=== PATIENT | male | born 1935 | race Caucasian/White ===

== ENCOUNTER → 2016-09-16 | Outpatient (CLI) | payer OTHER ==
[~2016-09-16] VITALS: Ht 175.3 cm; Wt 87.8 kg
[~2016-09-16] MED LIST: ADVIL LIQUI-GE200 MG PO; ALIGN4 MG PO; ASPIRIN325 PO; B-121000 MCG PO; B-12250 MCG PO; BANOPHEN50 MG PO; BENADRYL25 MG PO; BENTYL20 MG PO; BYETTA PEN 11 PENIN1 SUBQ; BYETTA PEN 11 PENINJ SC; BYSTOLIC20 MG PO; CARDURA XL4 MG PO; CLONAZEPAM PO; COLACE100 MG PO; COLCHICINE0.6 MG PO; COLESTID1 GM PO; CRESTOR; CRESTOR20 MG; CRESTOR5 MG PO; DIABETA 5MG TABL5 MG; DIABETA 5MG TABL5 MG PO; DIOVAN 80 MG TA80 M1 PO; DIOVAN HCT 3201 EAC1 PO; DIOVAN HCT 3201 EACH PO; DIOVAN HCT 80-1 EACH PO; DURAGESIC1 EAC2 TRANSDERM; EAC IJ; EFFIENT10 MG PO; ELIQUIS5 MG PO; ENDOCET 7.5-501 EACH PO; FENTANYL PA12 MCG/HR TD; FENTANYL PA12 MCG/HR TRANSDERM; FENTANYL PA25 MCG/HR TD; FLOMAX PO; FLOMAX0.4 MG PO; FUROSEMIDE 40 M40 MG PO; GLYCOLAX POWDER17 G1 PO; HYDROCODON-ACE1 EAC5 PO; HYDROCODONE-AP1 EAC6 PO; KLOR-CON 10 ER10 MEQ PO; LASIX 20 MG TAB20 MG PO; LASIX 40 MG TAB40 M1 PO; LIPITOR10 MG PO; MIRALAX255 GM PO; MOBIC15 MG PO; MS CONTIN15 MG PO; MUCINEX DM TABL1 TA1 PO; MYRBETRIQ25 MG PO; NEURONTIN 300300 M1 PO; NIACIN 500 MG500 M1 PO; NIASPAN 500 MG500 M1 PO; NIGHTTIME SLEEP50 MG PO; NITROQUICK0.4 MG; NITROQUICK0.4 MG SL; NITROQUICK0.4 MG SUBLING; NORCO 10-325 T1 EACH PO; OXECTA5 MG PO; OXYBUTYNIN 5 MG5 M1 PO; OXYBUTYNIN 5 MG5 M2 PO; OXYCODONE HCL5 M1 PO; OXYCODONE-APAP1 EAC6 PO; OXYCONTIN15 MG PO; OXYCONTIN30 MG PO; PERCOCET 10-321 EACH PO; PERCOCET 5-3251 EACH PO; RAPAFLO4 MG PO; REQUIP 1 MG TABL1 M1 PO; REQUIP PO; REQUIP0.5 MG PO; SAVAYSA30 MG PO; SENOKOT-S1 TA1 PO; SENOKOT-S1 TA2 PO; SLO-NIACIN250 MG PO; TAMSULOSIN HCL0.4 M1 PO; TOVIAZ4 M1 PO; VESICARE 5 MG TA5 MG PO; VESICARE10 M1 PO; VICTOZA0.6 MG/0.1 SQ; VITAMIN B12 PO; VITAMIN D2000 UNIT; VOLTAREN GEL 1100 G1 TOP; XANAX 0.25 MG0.25 MG PO; ZPAK PO
--- NOTE | ~2016-09-16 | HPC ---
[facility] [address] [place] [address] PAIN MANAGEMENT CONSULTATION Name: LUCRECIA MADRID Room #: REG PRIETO Shelton#: [id number] Admission: 09/16/16 Attend Phys: Rustam Roque DO Discharge: Date of : 37 Report #: [id number] THIS REPORT FOR: //name// CC: Errol Roque The patient is a very pleasant 80-year-old gentleman being treated for symptomatic lumbar radiculopathy status post decompressive laminectomy, has an intrathecal pump in place, presents to pain clinic today for intrathecal pump refill. He incidentally notes is having increasing pain in the right hip and leg. On further discussion, the patient notes that he had actually fallen striking that right hip about 6 weeks ago. Concerned for spiral fracture with decreased weightbearing ability. We did order an x-ray of the hip and pelvis. He also has a fairly classic radicular symptoms radiating down that leg. He is on a blood thinner, however (Eliquis). PHYSICAL EXAMINATION: Shows a 80-year-old gentleman, BMI is 28.2 kg/m2. Vital signs stable as noted in the EMR. Passive rotation of the right hip exacerbates pain. Becky test is negative. Strength is modestly diminished. Positive straight leg raise on that side as well. ASSESSMENT: Symptomatic lumbar radiculopathy status post decompressive laminectomy, intrathecal pump requiring refill, recent fall with trauma to the right hip with right hip pain. RECOMMENDATIONS: 1. X-ray of the pelvis and right hip. 2. Follow up next week off Eliquis for 2 days for consideration for either hip or lumbar epidural injection depending on clinical exam at that time and corroboration with the diagnostic findings (pelvis and hip X-Ray today). PROCEDURE: Intrathecal pump refill. PROCEDURE NOTE: After written informed consent was obtained, the patient was placed in supine position. Skin overlying the pump was cleansed with ChloraPrep. Skin wheal with Xylocaine was raised. Using a Critique^It refill kit, the pump was accessed, aspirated residual contents, and refilled with hydromorphone 2 mg per mL, 40 mL was injected with easy aspiration of injectate throughout. The patient complained of no change in sensation, burning dysesthesia. The site was visualized, no swelling or erythema was noted. Needle was removed, the area was cleansed, Band-Aids applied. Pump was reprogrammed to deliver current flex rate starting at noon and running for the latter half of the day. Overall, daily infusate is unchanged . GIGI is 55 months. New refill date is 02/07/2017. I have asked the patient to follow up next [place] [address] PAIN MANAGEMENT CONSULTATION Name: LUCRECIA MADRID Room #: REG PRIETO Shelton#: [id number] Admission: 09/16/16 Attend Phys: Rustam Roque DO Discharge: Date of : 37 Report #: [id number] of Eliquis. We will ask him to bring in the PTM device and we will likely reprogram the pump to deliver a basal rate plus will enable use of the PTM. Discharged in good and stable condition. <ELECTRONICALLY SIGNED> By: Rustam Roque DO 09/19/16 0749 1504 2159 Rustam Roque DO /nt
[2016-09-16 12:59] VITALS: BP 129/58
== END ==
LOC: PAIN 09:26
DX: Z45.1 Encounter for adjustment and management of infusion pump (principal); M54.16 Radiculopathy, lumbar region; M96.1 Postlaminectomy syndrome, not elsewhere classified; I10 Essential (primary) hypertension; Z87.891 Personal history of nicotine dependence; F32.9 Major depressive disorder, single episode, unspecified

== ENCOUNTER → 2016-09-22 | Outpatient (CLI) | payer OTHER ==
[~2016-09-22] VITALS: Ht 172.7 cm; Wt 85.3 kg
[~2016-09-22] MED LIST changes: +BENTYL 20 MG TA20 M1 PO; +BIOTIN5000 MCG PO; +KETOCONAZOLE60 GM TP; +KLOR-CON 1010 MEQ PO; +MIRALAX17 GM PO; +PANTOPRAZOLE SO40 M1 PO; -VITAMIN D2000 UNIT; +VITAMIN D2000 UNIT PO
--- NOTE | ~2016-09-22 | HPC ---
[address] [address] PAIN MANAGEMENT CONSULTATION Name: LUCRECIA MADRID Ariela Room #: REG PRIETO Shelton#: [id number] Admission: 09/22/16 Attend Phys: Rustam Roque DO Discharge: Date of : 37 Report #: [id number] THIS REPORT FOR: //name// CC: Errol Roque HISTORY OF PRESENT ILLNESS: The patient is a 80-year-old gentleman well known to pain clinic, being treated for lumbar radiculopathy status post decompressive laminectomy, ongoing lumbar radicular pain, chronic pain syndrome requiring complex medication management and intrathecal pump management. He was seen in pain clinic on 09/16/2016 and we refilled his pump that time. He returns to pain clinic today with increasing ongoing pain. I ordered x-rays of the right hip and pelvis as pain had increased subsequent to a fall about 6 weeks ago. X-rays show no pathology in the pelvis or right hip. With ongoing pain, we elected to proceed with epidural injection under fluoroscopy today. He has been off of his Eliquis now for 4 days. After discussion today, we have also elected to reprogram the intrathecal pump. He currently has a flex program delivering about 2.7 mg a day with a slight increase from noon to midnight. Today, we have elected to simply initiate a continuous infusion at 2.5 mg of hydromorphone a day (about 5% decrease overall), but enable hydromorphone PA dose of 0.15 mg and enable him to have up to 5 of these in a day with a 2-hour lock out. Ultimately, this will enable a 30% increase overall if PA is utilized. Also I have taken the liberty of renewing his Percocet enabling up to 4 tablets a day. We reviewed the fact that opiate medications are being used to provide analgesia adequate to support activities of daily living, not attempting to achieve a specific pain score on the 0-10 Visual Analog Scale. The current opiate medications are providing sufficient analgesia to allow the patient to participate in activities of daily living. The patient is not exhibiting any aberrant behavior suggestive of drug diversion. The patient is not having any adverse reactions to medications. The patient is not suffering from daytime somnolence or mental acuity changes. The patient is managing opiate-induced constipation with appropriate [id number]-mso-ahycftn agents and dietary considerations. The patient was counseled on concern for caution with operating a motor vehicle while using opiate medications. A physical exam was performed and the patient's functional status was evaluated. All patients with back pain were advised against the bed rest greater than 4 days and were advised to return to normal activities. Pain score assessment was noted and the treatment plan was reviewed with the patient. All current medications, both prescribed and OTC were reviewed and reconciled on the electronic medical record. Tobacco screening was accomplished and smoking cessation was advised when indicated. BMI was noted and diet/exercise [address] [address] PAIN MANAGEMENT CONSULTATION Name: MERCYLUCRECIA Ariela Room #: REG PRIETO Shelton#: [id number] Admission: 09/22/16 Attend Phys: Rustam Roque DO Discharge: Date of : 37 Report #: [id number] modification was recommended for all patients following outside normal parameters. I reviewed with the patient today their responsibilities to safeguard prescription medications, reviewed their responsibility to utilize medications only as prescribed by the physician. They are to seek and receive pain medications only from 1 physician group ( [facility]). They are to use 1 pharmacy and keep the clinic informed if they change pharmacies. Their responsibilities include making followup visits in a timely fashion and to avoid abrupt discontinuation of medication usage. Their responsibilities further include bringing their medications (bottles from the pharmacy with residual pills) to the visit for possible confirmation of pill counts and the patient understands it is their responsibility to submit to random drug screens to ensure both that the medications prescribed are present, and that no other controlled substances are present. All prescriptions provided today were generated electronically. ASSESSMENT: 1. Symptomatic lumbar radiculopathy status post decompressive laminectomy, chronic pain syndrome requiring complex medication management, hip and pelvic pain, axial back pain, intrathecal pump management. 2. Acute exacerbation of lumbar radicular pain. PROCEDURE: Lumbar epidural injection under fluoroscopy. PROCEDURE NOTE: After both written and informed consent to include risk of spinal cord damage, increased pain, weakness and dural puncture, the patient was taken to the fluoroscopy suite, placed in the prone position. After sterile prep and drape, a skin wheal with lidocaine was raised. A 22-gauge epidural Tuohy needle was inserted in the midline at L5-S1 with good loss to resistance. Negative aspiration for cerebrospinal fluid or blood was noted. Then 1 mL of Omnipaque under biplanar fluoroscopy showed good spread within the epidural space. This was followed with 60 mg of triamcinolone plus 1 mL of 1.5% preservative-free Xylocaine, 0.5 mL Xylocaine was then injected to flush the needle; it was removed. The patient was monitored for an appropriate period of time and discharged in good and stable condition. <ELECTRONICALLY SIGNED> By: Rustam Roque DO 09/23/16 0837 1603 2249 Rustam Roque DO /nt
[2016-09-22 14:14] VITALS: BP 102/57
== END | disposition home or self-care (01) ==
LOC: PAIN 07:18
DX: M54.16 Radiculopathy, lumbar region (principal); G89.4 Chronic pain syndrome; M25.559 Pain in unspecified hip

== ENCOUNTER 2016-09-23 06:36 | Observation (INO) | payer OTHER ==
[~2016-09-23] VITALS: Ht 172.7 cm; Wt 83.1 kg
--- NOTE | ~2016-09-23 | D ---
[facility] [place] [address] [address] [place] [address] DISCHARGE SUMMARY Name: LUCRECIA MADRID Room #: 204-P [facility] Sharon Shelton#: [id number] Admission: 09/23/16 Attend Phys: George Banks MD Discharge: 09/24/16 Date of : 37 Report #: [id number] THIS REPORT FOR: //name// CC: Errol Banks DATE OF SERVICE: 09/24/2016 FINAL DIAGNOSES: 1. Bradycardia, status post pacemaker insertion. 2. Atrial fibrillation. 3. Heart block. 4. Coronary artery disease. 5. Hypertension. 6. Hypercholesterolemia. HOSPITAL COURSE: Please see the original H and P for full details. The patient presented electively for symptomatic bradycardia, undergoing a pacemaker insertion by Dr. Banks. He has remained hemodynamically stable overnight. The pacemaker was interrogated today. He remains hemodynamically stable and will be discharged home. He is instructed to resume his oral anticoagulant on Monday. FINAL DISPOSITION: Aspirin once a day, colchicine, Lasix 20 mg daily, Neurontin, Protonix 40 mg daily, potassium, tamsulosin, alprazolam. He is given instructions for followup with Dr. Banks. <ELECTRONICALLY SIGNED> By: Tristian Titus MD 09/24/16 2112 1030 [facility] Tristian Titus MD /kerrie
--- NOTE | ~2016-09-23 | P ---
[facility] [place] [address] [address] [place] [address] PROCEDURE REPORT Name: LUCRECIA MADRID Room #: 204-P [facility] M.R.#: [id number] Admission: 09/23/16 Attend Phys: George Banks MD Discharge: Date of : 37 Report #: [id number] THIS REPORT FOR: //name// CC: Errol Banks PROCEDURE: Pacemaker insertion. PREOPERATIVE DIAGNOSES: Atrial fibrillation and bradycardia. POSTOPERATIVE DIAGNOSES: Atrial fibrillation and bradycardia. The patient is a 80-year-old with history permanent AFib as well as symptomatic bradycardia, here for pacemaker implantation. ANESTHESIA: The patient underwent MAC anesthesia with no anesthesia related complications. DESCRIPTION OF PROCEDURE: The patient underwent informed consent. We discussed the details of the procedure including the risks, which include, but not limited to bleeding, infection, vascular damage, cardiac perforation, and pneumothorax. He understood these risks and was willing to proceed. As such, he was brought to the EP laboratory in a fasting and sedated state and prepped and draped in a sterile fashion, received IV antibiotics prior to initiation of the procedure and a venogram was performed showing patency of the left axillary vein. Next, I injected 20 mL of lidocaine below the level of left clavicle. Incision was made, pocket was created over the prepectoral fascia and access was obtained once the left axillary vein and a sheath was positioned using the modified Seldinger technique. Next, a lead was positioned in the right ventricular apex with adequate pacing and sensing thresholds and sutured to the prepectoral fascia. The pacemaker was connected and placed in the pocket and then the pocket was irrigated with vancomycin and then the pocket was closed in 3 layers using 2-0 for the deep layer, 3-0 for the mid layer and 4-0 for the subcuticular layer. Surgical glue was placed to the skin. The patient awoke neurologically and hemodynamically intact with no complications and no significant bleeding. The implanted pacemaker was a [employer] model # [id number], serial #[id number] with a RV lead that is a [employer] model #2088TC, 58 cm, serial #[id number]. The RV lead demonstrated a R-wave of 4.3 millivolts, pacing impedance of 460 ohms and a pacing threshold of 0.75 volts at 0.4 milliseconds. The device was programmed to the VVIR 70-130 mode. CONCLUSIONS: [facility] [address] [place] [address] PROCEDURE REPORT Name: LUCRECIA MADRID [id number] Admission: 09/23/16 Attend Phys: George Banks MD Discharge: Date of : 37 Report #: [id number] 1. Successful pacemaker implantation. 2. Satisfactory ventricular pacing and sensing thresholds. By: [id number] George Banks MD /nt
[~2016-09-23 06:36] MED LIST changes: -BENTYL 20 MG TA20 M1 PO; -BIOTIN5000 MCG PO; -KETOCONAZOLE60 GM TP; -KLOR-CON 1010 MEQ PO; -MIRALAX17 GM PO; -PANTOPRAZOLE SO40 M1 PO
[2016-09-23] MEDS ORDERED: PANTOPRAZOLE SO40 M1 PO (07:18)
[2016-09-23 07:19] VITALS: BP 144/60
[2016-09-23] MEDS ORDERED: DIOVAN 80 MG TA80 M1 PO (07:19)
[2016-09-23 07:20] LABS: ABSOLUTE NEUTROPHILS 4.7 thou/uL (1.4-8.2); BASOPHILS 0.3 % (0.0-2.0); HEMATOCRIT 31.1 % (42.0-52.0); HEMOGLOBIN 10.1 gm/dL (14.0-18.0); LYMPHOCYTES 14.5 % (24.0-44.0); MCH 29.2 pg (26.0-34.0); MCHC 32.4 g/dL (28.0-37.0); MCV 90.2 fL (80.0-100.0); MONOCYTES 4.3 % (1.0-8.0); PLATELET COUNT 189 thou/uL (150-400); POLYS 80.9 % (36.0-66.0); RBC 3.45 mil/uL (4.50-6.00); WBC 5.8 thou/uL (4.0-11.0)
[2016-09-23] MEDS ORDERED: BENTYL 20 MG TA20 M1 PO (07:20)
[2016-09-23] MEDS ORDERED: KLOR-CON 1010 MEQ PO (07:20)
[2016-09-23 07:21] LABS: MANUAL DIFF NO
[2016-09-23] MEDS ORDERED: MIRALAX17 GM PO (07:21)
[2016-09-23] MEDS ORDERED: BIOTIN5000 MCG PO (07:21)
[2016-09-23] MEDS ORDERED: KETOCONAZOLE60 GM TP (07:22)
[2016-09-23 07:36] LABS: APTT 28.2 Seconds (24.5-32.8); CALCIUM 9.3 mg/dL (8.5-10.1); CREATININE 1.5 mg/dL (0.7-1.3); PROTIME 10.6 Seconds (9.3-11.4)
[2016-09-23 07:40] LABS: ALBUMIN 3.8 g/dL (3.4-5.0); TOTAL BILIRUBIN 0.4 mg/dL (<0.1-1.0); TOTAL PROTEIN 7.9 g/dL (6.4-8.2)
[2016-09-23 11:36] VITALS: BP 133/74
[2016-09-23 15:54] VITALS: BP 129/66
[2016-09-23 19:49] VITALS: BP 116/61
[2016-09-24 04:35] VITALS: BP 130/72
[2016-09-24 08:15] VITALS: BP 127/70
[2016-09-24 10:36] VITALS: BP 127/70
[2016-09-24 11:25] VITALS: BP 127/70
== END 2016-09-24 11:50 | disposition home or self-care (01) ==
LOC: CATH 06:36 → 2N 11:29
PROVIDERS: Internal Medicine Cardiovascular Disease
DX: I49.5 Sick sinus syndrome (principal); I48.91 Unspecified atrial fibrillation; R00.1 Bradycardia, unspecified; I25.10 Atherosclerotic heart disease of native coronary artery without angina pectoris; I10 Essential (primary) hypertension; E78.5 Hyperlipidemia, unspecified; Z95.0 Presence of cardiac pacemaker
CPT/HCPCS: 62110; 70005

== ENCOUNTER → 2017-01-13 | Outpatient (CLI) | payer OTHER ==
[~2017-01-13] VITALS: Ht 175.3 cm; Wt 82.6 kg
[~2017-01-13] MED LIST changes: +ASPIRIN81 M2 PO; +BENTYL 20 MG TA20 M1 PO; +BIOTIN5000 MCG PO; +KETOCONAZOLE60 GM TP; +KLOR-CON 1010 MEQ PO; +MIRALAX17 GM PO; +PANTOPRAZOLE SO40 M1 PO
--- NOTE | ~2017-01-13 | HPC ---
[facility] [address] [place] [address] PAIN MANAGEMENT CONSULTATION Name: LUCRECIA MADRID Room #: REG PRIETO Shelton#: [id number] Admission: 01/13/17 Attend Phys: Rustam Roque DO Discharge: Date of : 37 Report #: [id number] THIS REPORT FOR: //name// CC: Errol Roque DATE OF SERVICE: 01/13/2017 The patient is a very pleasant 81-year-old gentleman who longer at the pain clinic being treated for lumbar radiculopathy status post decompressive laminectomy, chronic pain syndrome requiring intrathecal pump management, presents to pain clinic today for intrathecal pump refill. Discussion with the patient today about ongoing therapeutic concerns. He has fallen 6 times in the last 3 months. On questioning him, he notes his legs are not "giving out." He simply trips and falls over objects usually when he is not using his walker, typically when he is hurrying to go to the bathroom as he has significant urinary urgency. He had fallen fairly hard with some trauma to his head and Dr. Blackburn took him off of his blood thinners at that time. It has been greater than a year status post his last endovascular stent. He remains fairly ecchymotic in his arms compatible with someone on long-term blood thinners. He is alert and oriented, but becoming more and more disabled, has a markedly antalgic gait with significant forward leaning posture and some kyphoscoliosis. Rates his pain 8-9 on VAS. Ongoing pain in the right shoulder. He did see Dr. Juan Carlos Bartholomew, had steroid injection there about 3 weeks ago. He has a followup appointment next week for further evaluation. Again, unfortunately, I do not think the patient would be an excellent surgical candidate given his general debility, but he may unfortunately require some surgery on that right shoulder. May benefit from PRP injection (?). PHYSICAL EXAMINATION: Otherwise is relatively unchanged pleasant 81-year-old gentleman, BMI is 26.9 kilograms per meter squared. Blood pressure 142/71, pulse 70, respirations 18. Significantly decreased range of motion actually at both shoulders, right greater than left, abduction is about 45 degrees. Hand grasp is even diminished a little bit on the right side. He does use his walker to ambulate. Antalgic, ataxic gait, significant forward posture. Continues to use Percocet p.r.n. 10/325 one tablet 4 times a day, he does have prescriptions for the next 2 months. Today, the intrathecal pump was refilled by the nursing staff. This was done under my supervision. Refilled with hydromorphone 40 mg per mL. His new refill date is 05/07/2017. Infusion rate continues at 2.498 mg of hydromorphone a day. The PA is enabled and he utilizes it appropriately. Has had [address] successful [facility] [address] [place] [address] PAIN MANAGEMENT CONSULTATION Name: MERCYLUCRECIA Ariela Room #: REG PRIETO Shelton#: [id number] Admission: 01/13/17 Attend Phys: Rustam Roque DO Discharge: Date of : 37 Report #: [id number] activations since last interrogation. The patient was discharged in good and stable condition today. Follow up simply as needed, medication management. <ELECTRONICALLY SIGNED> By: Rustam Roque DO 01/19/17 0847 1252 1949 Rustam Roque DO /nt
[2017-01-13 11:43] VITALS: BP 142/71
== END | disposition home or self-care (01) ==
LOC: PAIN 01-12 07:40
DX: Z45.1 Encounter for adjustment and management of infusion pump (principal); M54.16 Radiculopathy, lumbar region; G89.4 Chronic pain syndrome; I10 Essential (primary) hypertension; Z98.890 Other specified postprocedural states; Z87.891 Personal history of nicotine dependence; Z88.8 Allergy status to other drugs, medicaments and biological substances; Z88.6 Allergy status to analgesic agent; Z79.82 Long term (current) use of aspirin; Z79.899 Other long term (current) drug therapy

== ENCOUNTER → 2017-02-06 | Outpatient (CLI) | payer OTHER | END | disposition home or self-care (01) | LOC: RAD 08:25 | DX: M75.101 Unspecified rotator cuff tear or rupture of right shoulder, not specified as traumatic (principal) ==

== ENCOUNTER 2017-02-11 02:00 | Emergency (ER) | payer OTHER ==
[~2017-02-11] VITALS: Ht 175.3 cm; Wt 83.9 kg
[2017-02-16] MEDS ORDERED: OXYCODONE-ACET1 EAC2 PO (14:15)
[2017-02-16] MEDS ORDERED: ALLOPURINOL 10100 M1 PO (14:16)
[2017-02-16] MEDS ORDERED: KLOR-CON 1010 MEQ PO (14:16)
[2017-02-16] MEDS ORDERED: ONDANSETRON HCL4 M2 PO (14:17)
[2017-02-16] MEDS ORDERED: CYMBALTA60 MG PO (14:18)
[2017-02-16] MEDS ORDERED: MYRBETRIQ25 MG PO (14:18)
[2017-02-16] MEDS ORDERED: COLCHICINE0.6 MG PO (14:20)
== END 2017-02-11 04:35 | disposition home or self-care (01) ==
LOC: ER 02:00
DX: M25.551 Pain in right hip (principal); I10 Essential (primary) hypertension; E11.9 Type 2 diabetes mellitus without complications; G47.30 Sleep apnea, unspecified; G25.81 Restless legs syndrome; F10.99 Alcohol use, unspecified with unspecified alcohol-induced disorder; Z90.89 Acquired absence of other organs; Z90.49 Acquired absence of other specified parts of digestive tract; Z88.8 Allergy status to other drugs, medicaments and biological substances; Z88.6 Allergy status to analgesic agent; Z91.010 Allergy to peanuts; Z91.018 Allergy to other foods; Z79.4 Long term (current) use of insulin

== ENCOUNTER → 2017-02-13 | Outpatient (CLI) | payer OTHER | LOC: CAT 14:32 | DX: M47.892 Other spondylosis, cervical region (principal) ==

== ENCOUNTER 2017-02-22 05:15 | Inpatient (IN) | payer OTHER ==
[2017-02-17 13:32] LABS: URINE BILIRUBIN NEGATIVE (Negative); URINE BLOOD TRACE (Negative); URINE COLOR YELLOW; URINE GLUCOSE-RANDOM* NEGATIVE (Negative); URINE KETONES NEGATIVE (Negative); URINE LEUKOCYTES-REFLEX NEGATIVE (Negative); URINE PROTEIN (DIPSTICK) TRACE (Negative)
[2017-02-17 13:34] LABS: HEMATOCRIT 28.5 % (42.0-52.0); HEMOGLOBIN 9.5 gm/dL (14.0-18.0); MCH 29.3 pg (26.0-34.0); MCHC 33.3 g/dL (28.0-37.0); MCV 88.2 fL (80.0-100.0); RBC 3.23 mil/uL (4.50-6.00); RDW 17.3 % (10.5-14.5); WBC 7.7 thou/uL (4.0-11.0)
[2017-02-17 13:44] LABS: CALCIUM 9.5 mg/dL (8.5-10.1); CREATININE 1.4 mg/dL (0.7-1.3); POTASSIUM 4.2 mmol/L (3.5-5.1)
[2017-02-17 13:48] LABS: PROTIME 10.6 Seconds (9.3-11.4)
[~2017-02-22] VITALS: Ht 175.3 cm; Wt 90.5 kg
[2017-02-22] VITALS (11 sets, daily range): BP systolic 105–138; BP diastolic 43–71
--- NOTE | ~2017-02-22 | O ---
[facility] [place] [address] [place] [address] OPERATIVE REPORT Name: LUCRECIA MADRID Room #: 401-I [facility] M.R.#: [id number] Admission: 02/22/17 Attend Phys: Juan Carlos Martin Discharge: Date of : 37 Report #: [id number] THIS REPORT FOR: //name// CC: Juan Carlos Shipley DATE OF SERVICE: 02/22/2017 PREOPERATIVE DIAGNOSES: Right shoulder pain, rotator cuff tear arthropathy and biceps tendinopathy. POSTOPERATIVE DIAGNOSES: Right shoulder pain, rotator cuff tear arthropathy and biceps tendinopathy. PROCEDURE PERFORMED: Right reverse total shoulder arthroplasty with open biceps tenodesis. SURGEON: Juan Carlos Bartholomew M.D. INSTRUMENT MAN: Ana Maria Canas PA-C. ANESTHESIA: General with preoperative interscalene block. FLUIDS: 500 mL crystalloid. ESTIMATED BLOOD LOSS: Approximately 100 mL. IMPLANTS UTILIZED: DePuy Delta Xtend reverse prosthesis, size 12 Hydroxyapatite coated stem with a size 2 epiphysis. A +6 humeral polyethylene cup and a 42 mm eccentric glenosphere. DESCRIPTION OF PROCEDURE: After proper identification of the patient and the operative site in the preoperative holding area, the operative site was signed by myself. Prophylactic antibiotics given. The patient elected to receive an interscalene block after reviewing the risks, benefits, alternatives and potential complications with anesthesia. After a satisfactory block, the patient was brought back to the operative suite and after induction of satisfactory general endotracheal anesthesia, the patient was carefully positioned on the beachchair table with head of the bed elevated approximately 40 degrees. Right shoulder was able to be fully extended and the shoulder was sterilely prepped and draped in the usual manner. Final skin draping was with Ioban. Anterior deltopectoral approach was planned. A CompleteSet limb positioning system was utilized for limb positioning. Qualified director of first impressions was utilized throughout the entire procedure to aid in patient limb positioning, visualization and retraction of the soft tissues, instrument passage closure and sling application. [address] [address] OPERATIVE REPORT Name: LUCRECIA MADRID Room #: 401-I [facility] M.R.#: [id number] Admission: 02/22/17 Attend Phys: Juan Carlos Martin Discharge: Date of : 37 Report #: [id number] Anterior deltopectoral approach was planned. Skin was incised sharply. Full thickness skin flaps were developed. Deltopectoral interval was identified, but there was no cephalic vein. This was then carefully opened with the subdeltoid adhesions and thickening in the bursa was noted. There was evidence of a large rotator cuff tear with majority of the subscapularis, otherwise being intact. Long head of the biceps tendon demonstrated significant tendinopathy. A tenodesis was performed to the undersurface of the pectoralis major tendon. The subscapularis was released off the lesser tuberosity. The patient had full thickness retracted tears of the supraspinatus and infraspinatus with the subscapularis and capsule carefully released after the anterior circumflex vessels were identified and ligated and at this point, an oscillating saw was used to flatten the most superior aspect of the humeral head. Hand reaming up to size 12 stem, which matched the preoperative templating was performed. The intramedullary guide was then carefully positioned and secured with half pins and an oscillating saw was used to perform a humeral head osteotomy in approximately 20 degrees retroversion. Humeral head was removed. Any remaining peripheral osteophytes were carefully removed. The rotator cuff anchor was noted in the greater tuberosity with some suture that was retained, which was removed and debrided. A protection plate was then applied to the humerus. This was then extended and abducted and a lamina punch operator was utilized to distract the joint. Anterior capsule was carefully divided bluntly from the subscapularis and released. Labrum was removed circumferentially. The axillary nerve was identified and protected throughout the entire procedure. A small portion of the biceps insertion was released with direct observation of this area. There was excellent glenoid exposure and the remaining soft tissue was carefully removed from around this. There was no significant osseous way, but degenerative findings were noted on both the humeral and the glenoid side. At this point, a guide pin was placed into the glenoid while placing this guide as inferior as possible with care to pay attention to its orientation and tilt. The glenoid face was reamed and them the Miguel Angel reamer was utilized after this and a rongeur was used following all this to remove any potential soft tissue impingement. There was excellent bony bed for preparation of the Metaglene and glenoid. Step drill was then utilized. This area was thoroughly irrigated with normal saline. This drill hole was contained. Metaglene was then carefully impacted into position and had an excellent fit and was rotationally stable. Next, the inferior and superior locking screws were drilled and then placed. These both had excellent purchase. The anterior and posterior screws within the Metaglene were then placed and these measured 18 mm. All screws had excellent purchase, were sequentially tightened. The locking screws superiorly any inferiorly were then tightened. At this point, the humerus was prepared with an acetabular reamer to accept the size 2 epiphysis. A 42 eccentric glenosphere was carefully reduced over the glenoid and after this was performed, the glenosphere was carefully reduced into the Metaglene, screw was reversed until it was noted over [facility] [address] [place] [address] OPERATIVE REPORT Name: LUCRECIA MADRID Room #: 401-I [facility] M.R.#: [id number] Admission: 02/22/17 Attend Phys: Juan Carlos Martin Discharge: Date of : 37 Report #: [id number] a guidewire to have seated in the appropriate manner. This was then tightened approximately 16 or 17 turns, impacted and tightened again. The glenosphere was fully seated. There is no evidence of impingement was oriented inferiorly. Humerus was then reduced. Trial implants were assembled and placed a +6 polyethylene provided the best soft tissue attention with no gapping of the joint with longitudinal distraction. The trial implants were removed. Drill holes were placed in the anterior cortex of the humerus where #2 FiberWire was utilized for subsequent repair of the subscapularis. The wound and humerus was thoroughly irrigated with antibiotic irrigant normal saline. Next, the implant was carefully impacted into position and it had excellent fit. A +6 polyethylene liner was impacted into position, the shoulder was reduced. It was stable throughout a full arc of motion. Subscapularis was repaired with two #2 FiberWires in a modified Donte-Stephen technique. The joint and wound was again thoroughly irrigated with normal saline. This was dried. One gram of vancomycin powder was placed into the wound, half of the deep, half of this superficial and the deltopectoral interval was closed with #1 Vicryl, 2-0 Vicryl, the subcutaneous tissues, final skin closure was with 3-0 Monocryl in a running subcuticular manner. Dermabond was applied. Sterile dressing was applied as well as a sling for 4 weeks. The patient will be awakened and was transferred to the Recovery Room in stable condition. <ELECTRONICALLY SIGNED> By: Juan Carlos Bartholomew MD 02/24/17 1410 1341 1513 Juan Carlos Bartholomew MD /nt
--- NOTE | ~2017-02-22 | EKG ---
[address] [address] ELECTROCARDIOGRAM REPORT Name: LUCRECIA MADRID Room #: 401-I ADM IN M.R.#: [id number] Admission: 02/22/17 Attend Phys: Juan Carlos Martin Discharge: Date of : 37 Report #: [id number] THIS REPORT FOR: //name// [facility] Test Date: 2017-02-24 Test Time: 14:17:01 Pat Name: LUCRECIA MADRID Department: Room: 401 I Gender: M Black Belt: ulises : 1935 Requested By: Broderick Nunez Order Number: [id number] MD: George Banks Measurements Intervals [place] Rate: 70 P: LA: QRS: -84 QRSD: 145 T: 71 QT: 428 QTc: 462 Interpretive Statements Accelerated junctional rhythm IVCD, consider atypical RBBB Anterolateral infarct, old Compared to ECG 02/16/2012 08:13:53 Accelerated junctional rhythm now present Myocardial infarct finding now present Sinus rhythm no longer present Inferior Q waves no longer present Q waves no longer present Electronically Signed On 02-24-2017 21:17:30 CDT by George Banks [email or web address] <ELECTRONICALLY SIGNED> By: George Banks MD 02/24/172116 16 16 George Banks MD /EPI
--- NOTE | ~2017-02-22 | HC ---
[facility] [place] [address] CONSULTATION Name: LUCRECIA MADRID Room #: 401-I ADM IN M.R.#: [id number] Admission: 02/22/17 Attend Phys: Juan Carlos Martin Discharge: Date of : 37 Report #: [id number] THIS REPORT FOR: //name// CC: Juan Carlos Norton Shipley DATE OF SERVICE: 02/24/2017 HISTORY OF PRESENT ILLNESS: The patient is a 81-year-old white male with history of right shoulder pain, was admitted to [facility] and underwent a right reverse total shoulder arthroplasty with open biceps tenodesis on 02/22/2017. He is progressing quite well, but then had some problems with hypoxia, respiratory failure, lethargy with lower O2. He was started on nasal prong O2 and he is currently on 3 liters. We are seeing him in rehabilitation medicine consultation. He is currently on 98% on 3 liters, hopefully he can be tapered. PAST MEDICAL HISTORY: Includes, laminectomy in 1959, coronary artery disease with stent 03/19 and 08/24, sleep apnea with CPAP, noninsulin dependent diabetes mellitus, hypertension, restless legs syndrome, ETOH abuse, carpal tunnel surgery, L3-L4 laminectomy 09/28/2016, permanent pacemaker [facility] for atrial fibrillation and bradycardia Dr. Banks 09/23/2016. MEDICATIONS: Please see the full medication listing. SOCIAL HISTORY: Lives with his and son. The works, but son apparently is disabled from prior Hodgkins and lives at home and cares for the patient. REVIEW OF SYSTEMS: Did not offer any current complaints of chest pain, shortness of breath or abdominal discomfort. Some shoulder pain as expected. No focal extremity pain complaints. FAMILY HISTORY: Noncontributory. ALLERGIES: GIBRAN INHIBITORS, FENTANYL APPARENTLY CAUSES RASHES WELL TORADOL. PHYSICAL EXAMINATION: GENERAL: He is a pleasant 81-year-old slender white male in no obvious distress. VITAL SIGNS: Temperature 98.7, pulse 70, respirations 20, blood pressure 98/41. Alert, oriented. HEENT: Appeared to be benign. NEUROLOGIC: Cranial nerves are grossly intact. Facies are symmetric. He has decreased range of that left shoulder with strength of left upper extremity, a [address] [address] CONSULTATION Name: LUCRECIA MADRID Room #: 401-I ADM IN M.R.#: [id number] Admission: 02/22/17 Attend Phys: Juan Carlos Martin Discharge: Date of : 37 Report #: [id number] grade 4-/5. Right upper extremity is in a shoulder immobilizer. He can wiggle with thumb and fingers. Lower extremities, no focal calf swelling. Functional range of motion with strength, grade 3+ to 4-/5. DTRs are trace to 1. He is min assist sit to stand. Gait was 3 feet min assist with a cane. He does have a right lean and he notes there is some difference with his leg lengths and notes that this has been a chronic condition. ASSESSMENT: A 81-year-old white male with the following problems: 1. Right reverse total shoulder arthroplasty 02/22/2017. 2. Postoperative hypoxia, is on nasal prong O2 currently. 3. Diabetes mellitus type 2. 4. Hypertension. 5. Elevated lipids. 6. History of prior pacemaker. 7. Prior lumbar laminectomy. PLAN: The patient was a premorbid front-wheeled walker, ambulator due to his decreased balance and frequent falls. Now that he has had the reverse total shoulder arthroplasty, he is relegated to utilizing a cane, a pyramid cane will be tried by physical therapy today. His gait is quite precarious at this point in time. He may not be able to return back to the home setting until his shoulder precautions are released, but it will depend upon how he progress in therapies. He does have an adult son that could assist. He does not meet criteria for acute inpatient rehabilitation 5 Anthon criteria but agree that a fpc facility stay would appear to be most appropriate for him as he further medically stabilizes. Discussion was held with case management. Thank you for asking us to assist in this patient's care. <ELECTRONICALLY SIGNED> By: Amilcar Renteria MD 02/28/17 1116 1511 0507 Amilcar Renteria MD /[facility]
[~2017-02-22 05:15] MED LIST changes: +ALLOPURINOL 10100 M1 PO; +CYMBALTA60 MG PO; +ONDANSETRON HCL4 M2 PO; +OXYCODONE-ACET1 EAC2 PO
[2017-02-23 03:00] VITALS: BP 111/45
[2017-02-23 06:30] LABS: HEMATOCRIT 24.9 % (42.0-52.0); HEMOGLOBIN 8.2 gm/dL (14.0-18.0)
[2017-02-23 06:33] LABS: POTASSIUM 4.2 mmol/L (3.5-5.1)
[2017-02-23 08:21] VITALS: BP 108/52
[2017-02-23 16:00] VITALS: BP 94/55
[2017-02-23 19:30] VITALS: BP 117/45
[2017-02-24 05:10] VITALS: BP 110/56
[2017-02-24 08:00] VITALS: BP 105/44
[2017-02-24 08:35] VITALS: BP 103/56
[2017-02-24 10:25] LABS: ABG SAMPLE TYPE ARTERIAL; BE(vivo) -0.6 mmol/L (-2 to +3); HCO3 25.4 mmol/L (22.0-26.0); LACTATE 1.33 mmol/L (0.5-2.0); O2(CT) 11.5 mL/dL (15.0-23.0); PCO2 48.4 mmHg (35.0-45.0); PO2 65.9 mmHg (80.0-100.0); pH 7.337 (7.360-7.450); sO2 91.7 % (92.0-98.0); tCO2 26.8 mmol/L (24.0-30.0)
[2017-02-24 10:26] LABS: STICK SITE L.BRACHIAL
[2017-02-24 12:37] VITALS: BP 98/41
[2017-02-24 16:00] VITALS: BP 108/39
[2017-02-24 19:36] VITALS: BP 111/56
[2017-02-25 04:27] VITALS: BP 109/38
[2017-02-25 06:59] VITALS: BP 117/42
[2017-02-25 10:40] LABS: ABSOLUTE NEUTROPHILS 6.5 thou/uL (1.4-8.2); BASOPHILS 0.7 % (0.0-2.0); EOSINOPHILS 3.5 % (0.0-3.0); HEMATOCRIT 23.4 % (42.0-52.0); HEMOGLOBIN 7.7 gm/dL (14.0-18.0); LYMPHOCYTES 14.6 % (24.0-44.0); MCHC 32.8 g/dL (28.0-37.0); MCV 91.4 fL (80.0-100.0); MONOCYTES 8.3 % (1.0-8.0); PLATELET COUNT 120 thou/uL (150-400); POLYS 72.9 % (36.0-66.0); RBC 2.56 mil/uL (4.50-6.00); RDW 17.7 % (10.5-14.5); WBC 8.9 thou/uL (4.0-11.0)
[2017-02-25 10:53] LABS: MANUAL DIFF NO
[2017-02-25 11:02] LABS: CALCIUM 8.7 mg/dL (8.5-10.1); CREATININE 1.5 mg/dL (0.7-1.3); POTASSIUM 4.7 mmol/L (3.5-5.1)
[2017-02-25 14:35] LABS: ABG SAMPLE TYPE ARTERIAL; BE(vivo) -2.3 mmol/L (-2 to +3); HCO3 23.6 mmol/L (22.0-26.0); LACTATE 1.45 mmol/L (0.5-2.0); O2(CT) 12.5 mL/dL (15.0-23.0); O2Hb 97.4 % (92.0-98.0); PCO2 45.9 mmHg (35.0-45.0); PO2 141.5 mmHg (80.0-100.0); STICK SITE L.RADIAL; pH 7.329 (7.360-7.450); sO2 98.6 % (92.0-98.0)
[2017-02-25 18:22] VITALS: BP 109/46
[2017-02-25 20:00] VITALS: BP 102/40
[2017-02-26 04:00] VITALS: BP 100/48
[2017-02-26 08:00] VITALS: BP 115/49
[2017-02-26 16:00] VITALS: BP 139/55
[2017-02-27 04:45] VITALS: BP 127/59
[2017-02-27 07:03] LABS: HEMATOCRIT 25.3 % (42.0-52.0); HEMOGLOBIN 8.4 gm/dL (14.0-18.0); MCH 29.9 pg (26.0-34.0); MCHC 33.3 g/dL (28.0-37.0); MCV 89.8 fL (80.0-100.0); RBC 2.81 mil/uL (4.50-6.00); RDW 17.6 % (10.5-14.5)
[2017-02-27 07:04] LABS: CALCIUM 9.1 mg/dL (8.5-10.1); CREATININE 1.1 mg/dL (0.7-1.3); POTASSIUM 4.4 mmol/L (3.5-5.1)
[2017-02-27 08:00] VITALS: BP 134/61
[2017-02-27 16:00] VITALS: BP 125/58
[2017-02-27 20:10] VITALS: BP 143/65
[2017-02-28 05:00] VITALS: BP 143/68
[2017-02-28 08:00] VITALS: BP 130/53
== END 2017-02-28 15:05 | DRG 483 ==
LOC: TBA 05:15 → 4N 05:15 → PRE 11:11 → 4N 14:58
PROVIDERS: Anesthesiology Pain Medicine; Hospitalist; Orthopaedic Surgery Sports Medicine; Physician Assistant Surgical
DX: M75.101 Unspecified rotator cuff tear or rupture of right shoulder, not specified as traumatic (principal); J96.91 Respiratory failure, unspecified with hypoxia; M75.21 Bicipital tendinitis, right shoulder; M12.811 Other specific arthropathies, not elsewhere classified, right shoulder; I25.10 Atherosclerotic heart disease of native coronary artery without angina pectoris; G25.81 Restless legs syndrome; I48.91 Unspecified atrial fibrillation; E78.5 Hyperlipidemia, unspecified; M10.9 Gout, unspecified; M19.011 Primary osteoarthritis, right shoulder; G47.30 Sleep apnea, unspecified; D64.9 Anemia, unspecified; N18.9 Chronic kidney disease, unspecified; I12.9 Hypertensive chronic kidney disease with stage 1 through stage 4 chronic kidney disease, or unspecified chronic kidney disease; E11.22 Type 2 diabetes mellitus with diabetic chronic kidney disease; Z79.4 Long term (current) use of insulin; Z95.0 Presence of cardiac pacemaker; Z95.5 Presence of coronary angioplasty implant and graft; Z79.899 Other long term (current) drug therapy; Z88.8 Allergy status to other drugs, medicaments and biological substances; Z91.018 Allergy to other foods; Z91.010 Allergy to peanuts; Z28.21 Immunization not carried out because of patient refusal
CPT/HCPCS: 10790; 50010; 50101; 50172; 50386; 50417; 50697; 50733; 50935; 51771; 52138; 53000; 53078; 53331; 54118; 55435; 56521; 56524; 56525; 56526; 56530; 57095; 62110; 62900; 64039; 70005

== ENCOUNTER → 2017-04-10 | Outpatient (CLI) | payer OTHER | LOC: HYPER 07:18 | DX: E11.622 Type 2 diabetes mellitus with other skin ulcer (principal); L98.491 Non-pressure chronic ulcer of skin of other sites limited to breakdown of skin; L89.150 Pressure ulcer of sacral region, unstageable; E11.618 Type 2 diabetes mellitus with other diabetic arthropathy; G89.29 Other chronic pain; Z95.0 Presence of cardiac pacemaker; E11.36 Type 2 diabetes mellitus with diabetic cataract; I25.10 Atherosclerotic heart disease of native coronary artery without angina pectoris; E78.5 Hyperlipidemia, unspecified; M19.90 Unspecified osteoarthritis, unspecified site; Z87.891 Personal history of nicotine dependence ==

== ENCOUNTER → 2017-04-17 | Outpatient (CLI) | payer OTHER ==
[~2017-04-17] VITALS: Ht 172.7 cm; Wt 82.1 kg
[~2017-04-17] MED LIST changes: +PERCOCET 10-321 EAC1 PO; +VOLTAREN GEL 1100 G2 TOP
--- NOTE | ~2017-04-17 | HPC ---
[facility] [address] [place] [address] PAIN MANAGEMENT CONSULTATION Name: MERCYLUCRECIA Titus Room #: REG PRIETO Shelton#: [id number] Admission: 04/17/17 Attend Phys: Rustam Roque DO Discharge: Date of : 37 Report #: [id number] THIS REPORT FOR: //name// CC: Errol Roque HISTORY OF PRESENT ILLNESS: The patient is a very pleasant 81-year-old gentleman, long known to pain clinic, being treated for symptomatic lumbar radiculopathy status post decompressive laminectomy, chronic pain syndrome requiring high risk complex medication management. The patient was actually last seen as an inpatient, he had had a right total shoulder arthroplasty on 02/22/2017. He was admitted to the hospital. He was having trouble postoperatively with untoward sedation. I decreased his intrathecal pump about 45% when I saw him as an inpatient. He returns to pain clinic today. He is actually doing remarkably well. I was personally watched him walk pushing his wheelchair. He has a markedly stooped posture and some scoliosis, but his lower extremity strength is preserving. He was pleased to show me that he could sit and rise from the exam room chairs without using his arms. Again, he is doing physical therapy for the right total shoulder, doing remarkably well overall. He does complain of some right flank and hip pain. Some diffuse tenderness that he notes is generally improved with topical Voltaren gel. I reviewed the patient's diagnostic studies in the hospital, his renal function is actually looking pretty good. EGFR is about 65, while this is low. It certainly is appropriate for him to use topical Voltaren gel for his right flank. We will continue little Percocet 10/325 up to 4 a day maximum. His intrathecal pump was interrogated today. He does have PTM which he can use 6 times a day. He only used it at 3 times a day presently. PHYSICAL EXAMINATION: Otherwise, is pretty unremarkable. Again, much more alert and oriented. Vital signs stable as noted on the EMR. Tenderness as noted above. We reviewed the fact that opiate medications are being used to provide analgesia adequate to support activities of daily living, not attempting to achieve a specific pain score on the 0-10 Visual Analog Scale. The current opiate medications are providing sufficient analgesia to allow the patient to participate in activities of daily living. The patient is not exhibiting any aberrant behavior suggestive of drug diversion. The patient is not having any adverse reactions to medications. The patient is not suffering from daytime somnolence or mental acuity changes. The patient is managing opiate-induced constipation with appropriate bnuo-ksj-znnuibv agents and dietary considerations. The patient was counseled on concern for caution with operating a motor vehicle while using opiate medications. A physical exam was performed and the patient's functional status was evaluated. [address] [address] PAIN MANAGEMENT CONSULTATION Name: MERCYLUCRECIA Titus Room #: REG PRIETO Shelton#: [id number] Admission: 04/17/17 Attend Phys: Rustam Roque DO Discharge: Date of : 37 Report #: [id number] All patients with back pain were advised against the bed rest greater than 4 days and were advised to return to normal activities. Pain score assessment was noted and the treatment plan was reviewed with the patient. All current medications, both prescribed and OTC were reviewed and reconciled on the electronic medical record. Tobacco screening was accomplished and smoking cessation was advised when indicated. BMI was noted and diet/exercise modification was recommended for all patients following outside normal parameters. I reviewed with the patient today their responsibilities to safeguard prescription medications, reviewed their responsibility to utilize medications only as prescribed by the physician. They are to seek and receive pain medications only from 1 physician group ( [facility]). They are to use 1 pharmacy and keep the clinic informed if they change pharmacies. Their responsibilities include making followup visits in a timely fashion and to avoid abrupt discontinuation of medication usage. Their responsibilities further include bringing their medications (bottles from the pharmacy with residual pills) to the visit for possible confirmation of pill counts and the patient understands it is their responsibility to submit to random drug screens to ensure both that the medications prescribed are present, and that no other controlled substances are present. All prescriptions provided today were generated electronically. ASSESSMENT: Axial back pain, lumbar radiculopathy, status post decompressive laminectomy, intrathecal pump requiring high risk complex medication management. RECOMMENDATIONS: Voltaren gel 1 inch morning and after lunch to the right flank, may use up to 4 times a day, Percocet 10/325 up to 4 a day, taken the liberty of writing for 2 months of current medication. We will keep intrathecal pump where it is. Encouraged the PTM use as needed. Thank you for allowing me to participate in the patient's care. We will have him follow up in 2 months for reevaluation. A new refill is I believe in July. <ELECTRONICALLY SIGNED> By: Rustam Roque DO 04/19/17 0834 1545 2114 Rustam Roque DO /nt
[2017-04-17 14:33] VITALS: BP 109/56
== END ==
LOC: PAIN 07:36
DX: M54.16 Radiculopathy, lumbar region (principal); Z98.890 Other specified postprocedural states; Z79.899 Other long term (current) drug therapy

== ENCOUNTER → 2017-09-01 | Outpatient (CLI) | payer OTHER ==
[~2017-09-01] VITALS: Ht 172.7 cm; Wt 84.1 kg
--- NOTE | ~2017-09-01 | HPC ---
[facility] [address] [place] [address] PAIN MANAGEMENT CONSULTATION Name: LUCRECIA MADRID Ariela Room #: REG PRIETO Shelton#: [id number] Admission: 09/01/17 Attend Phys: Rustam Roque DO Discharge: Date of : 37 Report #: [id number] THIS REPORT FOR: //name// CC: Errol Roque The patient is a pleasant 81-year-old gentleman long known to pain clinic, treated for osteoarthritis, shoulder, status post right shoulder arthroplasty 02/22/2017. Chronic axial back pain requiring complex medication management, history of lumbar decompressive laminectomy. Suffers from some ongoing kyphosis and somewhat acute myelopathy status post cervical decompression late last year. He is improving somewhat. Has an intrathecal pump in place, which helps with chronic pain concerns. He presents to pain clinic today for intrathecal pump refill. Notes he is doing well on current infusion at 0.8 mg morphine a day. Does have a PA enabled, which he uses occasionally, 0.125 mg, which he can use up to 6 times in a 24-hour period. Appears since our last interrogation, he has used PTM about 76 times. He also uses a p.r.n. oral agent, Percocet , limit 4 tablets a day. I did renew that prescription today, I will put a note in the chart to check a buccal drug swab. If he is simply using the hydromorphone pain pump and PTM, we may be able to wean off the oxycodone p.r.n. Again, he has been getting up to 4 tablets a day and there was some concern for a lost prescription in the past (?). PROCEDURE: Intrathecal pump refill. INDICATION: Intrathecal pump management for chronic pain status post . PROCEDURE NOTE: After informed consent was obtained, the patient placed in supine position. Skin overlying the pump was cleansed with ChloraPrep. Using a [employer] Questtronic refill kit, I accessed the pump and aspirated residual contents, expected was about 5.5 mL, I aspirated actually about 8 mL. Typically, these 40 mL Medtronic pumps tend to have a little higher volume than anticipated. We suspect there may be some hysteresis regarding the exact infusion rate. Nonetheless, pump was refilled with 40 mL of new injectate containing hydromorphone 10 mg per mL. Frequent aspiration showed easy return. Visual inspection showed no swelling or erythema. The patient experienced no pain during the refill. Needle was removed, area was cleansed, Band-Aid was applied. The pump was reprogrammed to deliver its basal rate with ITP enabled. Prescription generated for Percocet 10/325. Follow up in 1 month. Again, unbeknownst to the patient, we will check a buccal swab at next visit. <ELECTRONICALLY SIGNED> By: Rustam Roque DO 09/04/17 0943 0911 1225 Rustam Roque DO /nt
[2017-09-01 13:35] VITALS: BP 138/71
== END | disposition home or self-care (01) ==
LOC: PAIN 07-14 09:07
DX: Z45.1 Encounter for adjustment and management of infusion pump (principal); G89.29 Other chronic pain; M54.9 Dorsalgia, unspecified; Z98.890 Other specified postprocedural states; Z79.891 Long term (current) use of opiate analgesic; Z87.891 Personal history of nicotine dependence; Z88.8 Allergy status to other drugs, medicaments and biological substances; Z79.82 Long term (current) use of aspirin; Z79.899 Other long term (current) drug therapy

== ENCOUNTER → 2017-11-02 | Outpatient (CLI) | payer OTHER ==
[~2017-11-02] VITALS: Ht 172.7 cm; Wt 84.4 kg
--- NOTE | ~2017-11-02 | HPC ---
[facility] [place] [address] PAIN MANAGEMENT CONSULTATION Name: LUCRECIA MADRID Room #: REG PRIETO Shelton#: [id number] Admission: 11/02/17 Attend Phys: Rustam Roque DO Discharge: Date of : 37 Report #: [id number] THIS REPORT FOR: //name// CC: Rosina ____ DESKTOP ENGINEER Errol Roque HISTORY OF PRESENT ILLNESS: The patient is a very pleasant 81-year-old gentleman well known to the pain clinic has been treated for some time for lumbar radiculopathy, status post decompressive laminectomy developed myelopathy and had an emergent cervical decompressive laminectomy about a year ago. He has an intrathecal pump for chronic pain management. This was replaced by Dr. Benito at around the same time as the cervical decompression. Currently, the intrathecal pump delivers hydromorphone. The injectate is 10 mg/mL, the infusion rate is 0.799 mg of hydromorphone a day. He does have PA enabled at 0.125 mg hydromorphone q. 4 hours, 1 minute duration. Last interrogation, he had had 32 activations since 09/01/2017. New refill date is 05/29/2018. GIGI is 42 months. The patient returns to the pain clinic today noting medications are generally providing sufficient analgesia to participate in activities of daily living. Notes presently pain is a 0 on a VAS. His chronic pain typically is in the back, hips and right flank. He uses his ITP 1 3 times a day and takes Percocet 10/325 3-4 times a day. He struggles little with some opiate-induced constipation. I gave him samples of Movantik today, but strongly encouraged him to use a daily stool softener/bulk-forming agent such as MiraLax. I did spend some time today trying to explain to the patient the mechanism of opiate-induced constipation, slowing of peristalsis and need to have hydrophilic bulk in the stool to maintain a soft stool enabling movement through the colon with diminished peristalsis. Not entirely certain that he understood this, but I do think he ultimately understood that he needs to use a daily stool softener. PHYSICAL EXAMINATION: Otherwise relatively unchanged, pleasant 81-year-old gentleman, very hard of hearing, but appears generally alert. He still has a little bit of a stooped posture. He uses a walker for balance and offload some weight. He had become quite myelopathic prior to his cervical decompression, is actually improving in functional status. Diffuse tenderness across the low back. No discrete trigger points are noted. Lower extremity strength is diminished, but symmetric. Straight leg raise is negative at this time. The patient is status post right total shoulder arthroplasty and still has some diminished range of motion actually in both shoulders. We reviewed the fact that opiate medications are being used to provide analgesia adequate to support activities of daily living, not attempting to achieve a specific pain score on the 0-10 Visual Analog Scale. The current opiate medications are providing sufficient analgesia to allow the patient to [address] [address] PAIN MANAGEMENT CONSULTATION Name: MERCYLUCRECIA Ariela Room #: REG PRIETO Shelton#: [id number] Admission: 11/02/17 Attend Phys: Rustam Roque, Discharge: Date of : 37 Report #: [id number] participate in activities of daily living. The patient is not exhibiting any aberrant behavior suggestive of drug diversion. The patient is not having any adverse reactions to medications. The patient is not suffering from daytime somnolence or mental acuity changes. The patient is managing opiate-induced constipation with appropriate rpxr-fzx-tiexngw agents and dietary considerations. The patient was counseled on concern for caution with operating a motor vehicle while using opiate medications. A physical exam was performed and the patient's functional status was evaluated. All patients with back pain were advised against the bed rest greater than 4 days and were advised to return to normal activities. Pain score assessment was noted and the treatment plan was reviewed with the patient. All current medications, both prescribed and OTC were reviewed and reconciled on the electronic medical record. Tobacco screening was accomplished and smoking cessation was advised when indicated. BMI was noted and diet/exercise modification was recommended for all patients following outside normal parameters. I reviewed with the patient today their responsibilities to safeguard prescription medications, reviewed their responsibility to utilize medications only as prescribed by the physician. They are to seek and receive pain medications only from 1 physician group ( [facility]). They are to use 1 pharmacy and keep the clinic informed if they change pharmacies. Their responsibilities include making followup visits in a timely fashion and to avoid abrupt discontinuation of medication usage. Their responsibilities further include bringing their medications (bottles from the pharmacy with residual pills) to the visit for possible confirmation of pill counts and the patient understands it is their responsibility to submit to random drug screens to ensure both that the medications prescribed are present, and that no other controlled substances are present. All prescriptions provided today were generated electronically. ASSESSMENT: Chronic pain syndrome in a gentleman with multiple physical maladies including history of lumbar decompressive laminectomy for radicular symptoms, history of cervical decompressive laminectomy for acute myelopathic symptoms. Osteoarthritis affecting multiple joints, status post right total shoulder arthroplasty. Intrathecal pump with the tip at T9 infusing hydromorphone at a fairly low rate utilizing his PA and oral Percocet p.r.n. Today, we told him to get a buccal drug swab. Since it was a random drug test, no aberrant behavior assessed for drug diversion. I noticed that there had not been a drug screen in quite some time on the chart. Unfortunately, I suspect that it may have an aberrant finding, we have had a few of our buccal drug swabs come back negative when I have been 99% certain that the patients were using their opiate, the patient is suffering from some significant xerostomia possibly secondary to multiple medications including fairly aggressive use of Lasix for some pretibial edema. This is being managed by it generalist physician, Dr. Shipley. [facility] [address] [place] [address] PAIN MANAGEMENT CONSULTATION Name: LUCRECIA MADRID Room #: REG PRIETO Shelton#: [id number] Admission: 11/02/17 Attend Phys: Rustam Roque DO Discharge: Date of : 37 Report #: [id number] The patient was discharged in good and stable condition today. I did reach out to Dr. Benito's office, his nurse Rosina was kind enough to return my call. We will transfer the patient's care to Dr. Benito's office to manage his intrathecal pump and his small dose of Percocet 10/325 q.i.d. for breakthrough pain. I am leaving the practice area. By: 0700 1040 Rustam Roque DO /nt
[2017-11-02 13:41] VITALS: BP 120/64
== END ==
LOC: PAIN 07:03
DX: G89.4 Chronic pain syndrome (principal); Z96.611 Presence of right artificial shoulder joint

== ENCOUNTER → 2018-11-20 | Outpatient (CLI) | payer OTHER ==
[~2018-11-20] MED LIST changes: +ANTIVERT25 MG PO; +AUGMENTIN 500-1 EACH PO; +DEMADEX20 MG PO; +IRBESARTAN150 MG PO; +KEFLEX500 M1 PO; +OMEPRAZOLE 20 M20 M1 PO; +VICTOZA0.6 MG/0.1 SUBQ
== END ==
LOC: HYPER 06:47
DX: E11.622 Type 2 diabetes mellitus with other skin ulcer (principal); I87.331 Chronic venous hypertension (idiopathic) with ulcer and inflammation of right lower extremity; L97.811 Non-pressure chronic ulcer of other part of right lower leg limited to breakdown of skin; L03.115 Cellulitis of right lower limb; E11.36 Type 2 diabetes mellitus with diabetic cataract; I25.10 Atherosclerotic heart disease of native coronary artery without angina pectoris; E78.5 Hyperlipidemia, unspecified; G89.29 Other chronic pain; M19.90 Unspecified osteoarthritis, unspecified site; M62.81 Muscle weakness (generalized); M10.9 Gout, unspecified; R60.0 Localized edema; Z87.891 Personal history of nicotine dependence; Z91.81 History of falling; Z79.84 Long term (current) use of oral hypoglycemic drugs; Z95.0 Presence of cardiac pacemaker

== ENCOUNTER → 2018-11-28 | Outpatient (CLI) | payer OTHER | LOC: HYPER 06:16 | DX: E11.622 Type 2 diabetes mellitus with other skin ulcer (principal); I87.331 Chronic venous hypertension (idiopathic) with ulcer and inflammation of right lower extremity; L97.811 Non-pressure chronic ulcer of other part of right lower leg limited to breakdown of skin; E11.36 Type 2 diabetes mellitus with diabetic cataract; E78.5 Hyperlipidemia, unspecified; G89.29 Other chronic pain; R60.0 Localized edema; I25.10 Atherosclerotic heart disease of native coronary artery without angina pectoris; I10 Essential (primary) hypertension; M62.81 Muscle weakness (generalized); M19.90 Unspecified osteoarthritis, unspecified site; M81.0 Age-related osteoporosis without current pathological fracture; L03.115 Cellulitis of right lower limb; F41.9 Anxiety disorder, unspecified; Z79.84 Long term (current) use of oral hypoglycemic drugs; Z87.891 Personal history of nicotine dependence; Z95.0 Presence of cardiac pacemaker ==

== ENCOUNTER → 2019-07-03 | Outpatient (CLI) | payer OTHER | LOC: HYPER 08:41 | DX: E11.622 Type 2 diabetes mellitus with other skin ulcer (principal); L97.222 Non-pressure chronic ulcer of left calf with fat layer exposed; L97.812 Non-pressure chronic ulcer of other part of right lower leg with fat layer exposed; L03.115 Cellulitis of right lower limb; L03.116 Cellulitis of left lower limb; E11.618 Type 2 diabetes mellitus with other diabetic arthropathy; E11.36 Type 2 diabetes mellitus with diabetic cataract; I25.10 Atherosclerotic heart disease of native coronary artery without angina pectoris; E78.5 Hyperlipidemia, unspecified; I10 Essential (primary) hypertension; M19.90 Unspecified osteoarthritis, unspecified site; M10.9 Gout, unspecified; F41.9 Anxiety disorder, unspecified; Z87.891 Personal history of nicotine dependence ==

== ENCOUNTER → 2019-09-04 | Outpatient (CLI) | payer OTHER | LOC: HYPER 14:11 | DX: E11.622 Type 2 diabetes mellitus with other skin ulcer (principal); L97.812 Non-pressure chronic ulcer of other part of right lower leg with fat layer exposed; L97.822 Non-pressure chronic ulcer of other part of left lower leg with fat layer exposed; L97.212 Non-pressure chronic ulcer of right calf with fat layer exposed; L03.116 Cellulitis of left lower limb; L03.115 Cellulitis of right lower limb; L84 Corns and callosities; R60.0 Localized edema; E11.36 Type 2 diabetes mellitus with diabetic cataract; E78.5 Hyperlipidemia, unspecified; I25.10 Atherosclerotic heart disease of native coronary artery without angina pectoris; I10 Essential (primary) hypertension; M19.90 Unspecified osteoarthritis, unspecified site; M10.9 Gout, unspecified; F41.9 Anxiety disorder, unspecified; Z87.891 Personal history of nicotine dependence; Z95.0 Presence of cardiac pacemaker ==

== ENCOUNTER → 2019-10-21 | Outpatient (CLI) | payer OTHER | LOC: HYPER 11:12 | PROVIDERS: ATTEND Emergency Medicine | DX: E11.622 Type 2 diabetes mellitus with other skin ulcer (principal); I87.333 Chronic venous hypertension (idiopathic) with ulcer and inflammation of bilateral lower extremity; L97.822 Non-pressure chronic ulcer of other part of left lower leg with fat layer exposed; L97.811 Non-pressure chronic ulcer of other part of right lower leg limited to breakdown of skin; L89.153 Pressure ulcer of sacral region, stage 3; L98.491 Non-pressure chronic ulcer of skin of other sites limited to breakdown of skin; L03.115 Cellulitis of right lower limb; E11.618 Type 2 diabetes mellitus with other diabetic arthropathy; E11.36 Type 2 diabetes mellitus with diabetic cataract; E78.5 Hyperlipidemia, unspecified; R60.0 Localized edema; I25.10 Atherosclerotic heart disease of native coronary artery without angina pectoris; M19.90 Unspecified osteoarthritis, unspecified site; M10.9 Gout, unspecified; F41.9 Anxiety disorder, unspecified; Z87.891 Personal history of nicotine dependence; Z95.0 Presence of cardiac pacemaker; Z79.84 Long term (current) use of oral hypoglycemic drugs ==

== ENCOUNTER → 2019-11-04 | Outpatient (CLI) | payer OTHER | LOC: HYPER 13:33 | PROVIDERS: ATTEND Emergency Medicine | DX: I87.333 Chronic venous hypertension (idiopathic) with ulcer and inflammation of bilateral lower extremity (principal); E11.622 Type 2 diabetes mellitus with other skin ulcer; L89.153 Pressure ulcer of sacral region, stage 3; L98.491 Non-pressure chronic ulcer of skin of other sites limited to breakdown of skin; L97.822 Non-pressure chronic ulcer of other part of left lower leg with fat layer exposed; L97.811 Non-pressure chronic ulcer of other part of right lower leg limited to breakdown of skin; R60.0 Localized edema; L03.115 Cellulitis of right lower limb; E11.618 Type 2 diabetes mellitus with other diabetic arthropathy; I25.10 Atherosclerotic heart disease of native coronary artery without angina pectoris; E11.36 Type 2 diabetes mellitus with diabetic cataract; E78.5 Hyperlipidemia, unspecified; M19.90 Unspecified osteoarthritis, unspecified site; M10.9 Gout, unspecified; F41.9 Anxiety disorder, unspecified; Z95.0 Presence of cardiac pacemaker; Z87.891 Personal history of nicotine dependence; Z79.84 Long term (current) use of oral hypoglycemic drugs; Z96.22 Myringotomy tube(s) status ==

== ENCOUNTER → 2019-11-14 | Outpatient (CLI) | payer OTHER | LOC: SJCVC 13:04 | PROVIDERS: ATTEND Internal Medicine Cardiovascular Disease | DX: I25.10 Atherosclerotic heart disease of native coronary artery without angina pectoris (principal); I10 Essential (primary) hypertension; E78.5 Hyperlipidemia, unspecified; I48.0 Paroxysmal atrial fibrillation; I49.5 Sick sinus syndrome; R60.9 Edema, unspecified; I50.43 Acute on chronic combined systolic (congestive) and diastolic (congestive) heart failure; R06.02 Shortness of breath; I65.22 Occlusion and stenosis of left carotid artery; Z95.0 Presence of cardiac pacemaker ==

== ENCOUNTER → 2019-11-19 | Outpatient (CLI) | payer OTHER | LOC: HYPER 07:54 | PROVIDERS: ATTEND Emergency Medicine | DX: I87.333 Chronic venous hypertension (idiopathic) with ulcer and inflammation of bilateral lower extremity (principal); E11.622 Type 2 diabetes mellitus with other skin ulcer; L97.822 Non-pressure chronic ulcer of other part of left lower leg with fat layer exposed; L97.811 Non-pressure chronic ulcer of other part of right lower leg limited to breakdown of skin; L89.153 Pressure ulcer of sacral region, stage 3; L98.491 Non-pressure chronic ulcer of skin of other sites limited to breakdown of skin; L03.115 Cellulitis of right lower limb; E11.618 Type 2 diabetes mellitus with other diabetic arthropathy; R60.0 Localized edema; I25.10 Atherosclerotic heart disease of native coronary artery without angina pectoris; E11.36 Type 2 diabetes mellitus with diabetic cataract; E78.5 Hyperlipidemia, unspecified; M19.90 Unspecified osteoarthritis, unspecified site; M10.9 Gout, unspecified; F41.9 Anxiety disorder, unspecified; Z79.84 Long term (current) use of oral hypoglycemic drugs; Z87.891 Personal history of nicotine dependence; Z95.0 Presence of cardiac pacemaker ==

== ENCOUNTER → 2019-11-26 | Outpatient (CLI) | payer OTHER | LOC: HYPER 11:00 | PROVIDERS: ATTEND Emergency Medicine | DX: E11.622 Type 2 diabetes mellitus with other skin ulcer (principal); I87.333 Chronic venous hypertension (idiopathic) with ulcer and inflammation of bilateral lower extremity; L97.811 Non-pressure chronic ulcer of other part of right lower leg limited to breakdown of skin; L97.822 Non-pressure chronic ulcer of other part of left lower leg with fat layer exposed; L89.153 Pressure ulcer of sacral region, stage 3; L98.491 Non-pressure chronic ulcer of skin of other sites limited to breakdown of skin; L03.115 Cellulitis of right lower limb; R60.0 Localized edema; E11.618 Type 2 diabetes mellitus with other diabetic arthropathy; E11.36 Type 2 diabetes mellitus with diabetic cataract; E78.5 Hyperlipidemia, unspecified; I25.10 Atherosclerotic heart disease of native coronary artery without angina pectoris; M19.90 Unspecified osteoarthritis, unspecified site; M10.9 Gout, unspecified; F41.9 Anxiety disorder, unspecified; Z87.891 Personal history of nicotine dependence; Z95.0 Presence of cardiac pacemaker; Z79.84 Long term (current) use of oral hypoglycemic drugs ==

== ENCOUNTER → 2019-12-03 | Outpatient (CLI) | payer OTHER | LOC: HYPER 15:06 | PROVIDERS: ATTEND Emergency Medicine | DX: E11.622 Type 2 diabetes mellitus with other skin ulcer (principal); L89.153 Pressure ulcer of sacral region, stage 3; L98.491 Non-pressure chronic ulcer of skin of other sites limited to breakdown of skin; E11.618 Type 2 diabetes mellitus with other diabetic arthropathy; E11.36 Type 2 diabetes mellitus with diabetic cataract; E78.5 Hyperlipidemia, unspecified; R60.0 Localized edema; I87.2 Venous insufficiency (chronic) (peripheral); I25.10 Atherosclerotic heart disease of native coronary artery without angina pectoris; M19.90 Unspecified osteoarthritis, unspecified site; M10.9 Gout, unspecified; F41.9 Anxiety disorder, unspecified; Z87.891 Personal history of nicotine dependence; Z95.0 Presence of cardiac pacemaker; Z79.84 Long term (current) use of oral hypoglycemic drugs ==

== ENCOUNTER → 2020-01-09 | Outpatient (CLI) | payer OTHER | LOC: SJCVCIMAG 11:24 | PROVIDERS: ATTEND Internal Medicine Cardiovascular Disease | DX: I08.8 Other rheumatic multiple valve diseases (principal); I65.23 Occlusion and stenosis of bilateral carotid arteries; I11.9 Hypertensive heart disease without heart failure; E78.00 Pure hypercholesterolemia, unspecified; I27.20 Pulmonary hypertension, unspecified; Z95.0 Presence of cardiac pacemaker ==

== ENCOUNTER → 2020-01-23 | Outpatient (CLI) | payer OTHER | LOC: HYPER 11:18 | PROVIDERS: ATTEND Emergency Medicine | DX: E11.622 Type 2 diabetes mellitus with other skin ulcer (principal); L89.153 Pressure ulcer of sacral region, stage 3; L98.498 Non-pressure chronic ulcer of skin of other sites with other specified severity; I87.2 Venous insufficiency (chronic) (peripheral); I25.10 Atherosclerotic heart disease of native coronary artery without angina pectoris; E11.618 Type 2 diabetes mellitus with other diabetic arthropathy; E11.36 Type 2 diabetes mellitus with diabetic cataract; E78.5 Hyperlipidemia, unspecified; M19.90 Unspecified osteoarthritis, unspecified site; M10.9 Gout, unspecified; Z87.891 Personal history of nicotine dependence; Z95.0 Presence of cardiac pacemaker; Z79.84 Long term (current) use of oral hypoglycemic drugs; Z96.22 Myringotomy tube(s) status ==

== ENCOUNTER → 2020-05-21 | Outpatient (CLI) | payer OTHER ==
[~2020-05-21] MED LIST changes: +ACETAMINOPHEN325 M1 PO; +ASPIR 8181 MG PO; -ASPIRIN81 M2 PO; +BENTYL 10 MG CA10 MG PO; -BENTYL 20 MG TA20 M1 PO; +DILAUDID1 MG/1 M1; +HUMALOG100 UNIT/1 SUBQ; +NEURONTIN 300M300 M2 PO; +NEURONTIN 400400 M1 PO; +NEURONTIN600 MG PO; +TORSEMIDE20 MG PO
== END ==
LOC: SJCVC 13:43
PROVIDERS: ATTEND Internal Medicine Cardiovascular Disease
DX: R94.31 Abnormal electrocardiogram [ECG] [EKG] (principal); I45.10 Unspecified right bundle-branch block; I25.10 Atherosclerotic heart disease of native coronary artery without angina pectoris; I49.5 Sick sinus syndrome; I48.0 Paroxysmal atrial fibrillation; I65.22 Occlusion and stenosis of left carotid artery; I10 Essential (primary) hypertension; E78.00 Pure hypercholesterolemia, unspecified; M19.90 Unspecified osteoarthritis, unspecified site; G47.30 Sleep apnea, unspecified; Z95.0 Presence of cardiac pacemaker; Z79.82 Long term (current) use of aspirin; Z79.899 Other long term (current) drug therapy; Z86.79 Personal history of other diseases of the circulatory system

== ENCOUNTER 2020-05-23 16:46 | Inpatient (IN) | payer OTHER ==
[~2020-05-23] VITALS: Ht 177.8 cm; Wt 83.0 kg
[~2020-05-23 16:46] MED LIST changes: -ACETAMINOPHEN325 M1 PO; -HUMALOG100 UNIT/1 SUBQ; -NEURONTIN 400400 M1 PO
[2020-05-23 16:47] VITALS: BP 142/58
[2020-05-23 17:15] LABS: ABSOLUTE NEUTROPHILS 5.7 thou/uL (1.4-8.2); EOSINOPHILS 4.8 % (0.0-3.0); HEMATOCRIT 34.1 % (42.0-52.0); HEMOGLOBIN 10.9 gm/dL (14.0-18.0); LYMPHOCYTES 17.5 % (24.0-44.0); MCH 31.4 pg (26.0-34.0); MCV 98.3 fL (80.0-100.0); MONOCYTES 8.8 % (1.0-8.0); PLATELET COUNT 166 thou/uL (150-400); POLYS 67.9 % (36.0-66.0); RBC 3.46 mil/uL (4.50-6.00); RDW 16.9 % (10.5-14.5); WBC 8.4 thou/uL (4.0-11.0)
[2020-05-23 17:24] LABS: CALCIUM 9.8 mg/dL (8.5-10.1); CREATININE 1.7 mg/dL (0.7-1.3)
[2020-05-23 17:32] LABS: ALBUMIN 3.1 g/dL (3.4-5.0); TOTAL BILIRUBIN 1.2 mg/dL (0.2-1.0); TOTAL PROTEIN 7.8 g/dL (6.4-8.2); TROPONIN-I 0.11 ng/mL (<0.06)
[2020-05-23 19:02] VITALS: BP 142/99
[2020-05-23 19:49] VITALS: BP 108/45
[2020-05-23 20:45] VITALS: BP 111/48
--- NOTE | 2020-05-23 22:50 | NUR ---
PATIENT ARRIVED VIA CART WITH GROUP WORK PROGRAM DIRECTOR AT 1954 TO ROOM 436. SLEEPY AND COOPERATIVE. DENIES PAIN. 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 WILL MONITOR.
[2020-05-24 03:41] VITALS: BP 110/41
--- NOTE | 2020-05-24 04:08 | NUR ---
PATIENT ALERT AND ORIENTED X4, HOWEVER, VERY HARD OF HEARING AND UNABLE TO WRITE HIS NAME FOR PROPER IDENTIFICATION. IVF INFUSING W/O COMPLICATION - ONE LITER ONLY. INCONTINENT OF URINE X2 DURING THE NIGHT. COVID TEST SENT BY ED FOR SURGERY. PATIENT HAS BEEN NPO SINCE 05/23/20 1583. MEDICATED X1 WITH 2MG MORPHINE BY THIS NURSE FOR HIP PAIN. UNABLE TO VERIFY MEDICATIONS DUE TO PATIENT BEING VERY SLEEPY AND [place]. WILL MONITOR.
[2020-05-24 05:01] LABS: CALCIUM 9.6 mg/dL (8.5-10.1); CREATININE 1.7 mg/dL (0.7-1.3); POTASSIUM 3.8 mmol/L (3.5-5.1)
[2020-05-24 07:15] VITALS: BP 149/57
[2020-05-24 08:20] VITALS: BP 125/45
[2020-05-24 16:15] VITALS: BP 111/43
--- NOTE | 2020-05-24 18:50 | NUR ---
PT ASSESSED AT START OF SHIFT. PT SEEN BY DR. WEBSTER THIS AM AND CLEARED FOR SURGICAL REPAIR OF LT FRACTURED HIP. PT TURNED Q2 HRS. PERCOCET FOR PAIN SEEMED TO HELP BETTER THAN MORPHINE. IN THIS AFTERNOON. DR. SALTER SCHEDULED SURGERY AT 1300 TOMORROW.
[2020-05-24 19:30] VITALS: BP 136/59
[2020-05-25] VITALS (11 sets, daily range): BP systolic 103–150; BP diastolic 50–74
--- NOTE | 2020-05-25 04:21 | NUR ---
PATIENT ALERT AND ORIENTED X4. CONFUSED AT TIMES DUE TO MATCH-E-BE-NASH-SHE-WISH BAND. BILATERAL HEARING AIDS ARE IN HIS EARS. IVF INFUSING W/O COMPLICATION. PATIENT HAS BEEN NPO SINCE 05/24/20 AT 23:59 FOR SURGERY TODAY. MEDICATED WITH OXYCODONE X1 DURING THE NIGHT AT TIME OF THIS NOTE. RESTLESS AT TIMES. INCONTINENT OF URINE X2 WITH TOTAL BED CHANGE BOTH TIMES. RESTING QUIETLY. WILL MONITOR.
--- NOTE | 2020-05-25 07:34 | EKG ---
[place] [address] [facility] [place] [address] ELECTROCARDIOGRAM REPORT Name: ULCRECIA MADRID Room #: 436-P ADM IN M.R.#: [id number] Admission: 05/23/20 Attend Phys: Chris Blackburn MD, Discharge: Date of : 37 Report #: [id number] [facility] ED Test Date: 2020-05-23 Test Time: 17:26:02 Pat Name: LUCRECIA MADRID Department: Room: [facility] Gender: M Card Runner: JCHAIDONTRELL : 1935 Requested By: Compa Mathias Order Number: [id number] MD: Garret Sanchez Measurements Intervals [place] Rate: 73 P: 200 TN: 57 QRS: -38 QRSD: 121 T: 236 QT: 426 QTc: 470 Interpretive Statements Ventricular-paced complexes Occasional intrinsic depolarizations No further analysis attempted due to paced rhythm Compared to ECG 11/14/2018 08:51:39 Pacing is now present Electronically Signed On 05-25-2020 7:34:49 AIRCRAFT LAY OUT WORKER by Garret Sanchez [email or web address] <ELECTRONICALLY SIGNED> By: Garret Sanchez MD, [facility] 05/25/2034 1726 1726 Garret Sanchez MD, [facility] /EPI
--- NOTE | 2020-05-25 07:38 | EKG ---
[address] [place] [employer] [place] [address] ELECTROCARDIOGRAM REPORT Name: LUCRECIA MADRID Room #: 436-P ADM IN M.R.#: [id number] Admission: 05/23/20 Attend Phys: Chris Blackburn MD, Discharge: Date of : 37 Report #: [id number] [facility] Test Date: 2020-05-24 Test Time: 08:05:16 Pat Name: LUCRECIA MADRID Department: Room: 436 P Gender: M Engraver Ornamental Design: fredo : 1935 Requested By: Chris Blackburn Order Number: [id number] MD: Garret Sanchez Measurements Intervals [place] Rate: 70 P: [place]: QRS: 268 QRSD: 151 T: 88 QT: 455 QTc: 491 Interpretive Statements Ventricular pacing Compared to ECG 11/14/2018 08:51:39 No significant change was found Electronically Signed On 05-25-2020 7:38:08 EDUCATIONAL INTERPRETER by Garret Sanchez [email or web address] <ELECTRONICALLY SIGNED> By: Garret Sanchez MD, [facility] 05/25/20 0738 08 4 Garret Sanchez MD, FACC /EPI
--- NOTE | 2020-05-25 07:39 | EKG ---
[address] [place] [address] ELECTROCARDIOGRAM REPORT Name: LUCRECIA MADRID Room #: 436-P ADM IN M.R.#: [id number] Admission: 05/23/20 Attend Phys: Chris Blackburn MD, Discharge: Date of : 37 Report #: [id number] [facility] Test Date: 2020-05-24 Test Time: 08:33:49 Pat Name: LUCRECIA MADRID Department: Room: 436 P Gender: M Campus Chaplain: compa : 1935 Requested By: Chris Blackburn Order Number: [id number] MD: Garret Sanchez Measurements Intervals [place] Rate: 61 P: 0 NE: 63 QRS: 264 QRSD: 245 T: 84 QT: 488 QTc: 492 Interpretive Statements Artifact limits interpretation Pacemaker spikes and/or artifact Artifact in lead(s) II,III,aVR,aVL,aVF,V3,V4 Compared to ECG 05/24/2020 08:05:16 Comparison not possible due to marked artifact Electronically Signed On 05-25-2020 7:39:23 PROGRAM SUPPORT ASSISTANT by Garret Sanchez [email or web address] <ELECTRONICALLY SIGNED> By: Garret Sanchez MD, [facility] 05/25/20 0739 2 2 Garret Sanchez MD, [facility] /EPI
--- NOTE | 2020-05-25 07:40 | EKG ---
[place] [address] [address] [employer] [address] ELECTROCARDIOGRAM REPORT Name: LUCRECIA MADRID Room #: 436-P ADM IN M.R.#: [id number] Admission: 05/23/20 Attend Phys: Chris Blackburn MD, Discharge: Date of : 37 Report #: [id number] [facility] Test Date: 2020-05-24 Test Time: 08:36:01 Pat Name: LUCRECIA MADRID Department: Room: 436 P Gender: M Principle Software Engineer: compa : 1935 Requested By: Chris Blackburn Order Number: [id number] MD: Garret Sanchez Measurements Intervals [place] Rate: 85 P: [place]: QRS: -12 QRSD: 96 T: 242 QT: 408 QTc: 486 Interpretive Statements Atrial fibrillation Low voltage, extremity leads ST and T wave abnormality Compared to ECG 05/24/2020 08:33:49 Pacing less frequent Electronically Signed On 05-25-2020 7:39:56 WHITE WASHER PILER by Garret Sanchez [email or web address] <ELECTRONICALLY SIGNED> By: Garret Sanchez MD, [facility] 05/25/20 0739 5 5 Garret Sanchez MD, [facility] /EPI
[2020-05-25 08:18] LABS: HEMATOCRIT 33.6 % (42.0-52.0); HEMOGLOBIN 10.4 gm/dL (14.0-18.0); MCH 30.8 pg (26.0-34.0); MCV 99.4 fL (80.0-100.0); RBC 3.38 mil/uL (4.50-6.00); RDW 17.1 % (10.5-14.5); WBC 7.1 thou/uL (4.0-11.0)
[2020-05-25 08:21] LABS: CALCIUM 9.2 mg/dL (8.5-10.1); CREATININE 1.8 mg/dL (0.7-1.3); POTASSIUM 3.7 mmol/L (3.5-5.1)
--- NOTE | 2020-05-25 09:20 | NUR ---
ASSESSMENT: CM REVIEWED CHART AND SPOKE WITH PATIENT. PT REPORTS BEING VERY HARD OF HEARING. PT WAS ADMITTED DUE TO A LEFT HIP FX AND IS TO HAVE SURGERY TODAY. PT REPORTS LIVING IN A HOUSE WITH HIS AND SON. PT STATES ABOUT 3 STEPS TO ENTER THE HOME AND ABOUT 18 STEPS WITH HANDRAILS TO THE BEDROOM. PT REPORTS HAVING A WALKER AT HOME WELL A GRAB BAR AND SHOWER CHAIR. 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 CM DISCUSSED LIKELY NEED FOR POST ACUTE CARE AT [facility] AND HE REPORTS HE WILL DISCUSS WITH HIS FAMILY ALTERNATE OPTIONS. CM ATTEMPTED TO REACH PTS AND SON BUT UNABLE TO AT THIS TIME. VM WAS LEFT. CM WILL CONTINUE TO FOLLOW TO ASSIST NEEDED.
--- NOTE | 2020-05-25 11:00 | NUR ---
ASSUMED CARE AT 0700. PT IS A&O X4. SYCUAN. USES URINAL AT TIMES. INCONTINENT. SET UP WITH MEALS. IV IS INTACT AND SHOWS NO SIGNS OF REDNESS OR SWELLING. RIGHT AC IS IV LOCATION. PT COMPLAINS OF PAIN AND WAS GIVEN OXYCODONE. PT IS TOLERATING WELL. FALL PRECAUTION. CALL LIGHT WITHIN REACH. VSS. WILL CONTINUE TO MONITOR.
[2020-05-25 15:26] LABS: HEMATOCRIT 28.8 % (42.0-52.0); HEMOGLOBIN 9.1 gm/dL (14.0-18.0); MCH 31.5 pg (26.0-34.0); MCHC 31.6 g/dL (28.0-37.0); MCV 99.7 fL (80.0-100.0); RBC 2.89 mil/uL (4.50-6.00); RDW 17.1 % (10.5-14.5)
[2020-05-26 04:43] VITALS: BP 131/72
[2020-05-26 05:26] LABS: HEMATOCRIT 25.6 % (42.0-52.0); HEMOGLOBIN 8.1 gm/dL (14.0-18.0); MCH 31.6 pg (26.0-34.0); MCHC 31.6 g/dL (28.0-37.0); RBC 2.56 mil/uL (4.50-6.00); RDW 17.1 % (10.5-14.5); WBC 6.9 thou/uL (4.0-11.0)
--- NOTE | 2020-05-26 05:41 | NUR ---
ASSUMED PT CARE AT SHIFT CHANGE. PT IS A&OX4 WITH MOMENTS OF CONFUSION. IV IS IN THE RIGHT AC. STILL PATENT. PT STATES THAT HE IS SUPPOSED TO BE TAKING EYE DROPS BUT DOES NOT KNOW THE NAME OF IT. PT DENIES PAIN. PT IS HARD OF HEARING. PT STATES THAT HE IS HAVING TROUBLE SLEEPING AT 0400. EXPLAINED TO THE PT THAT IT IS TOO LATE TO GIVE ANYTHING FOR SLEEP. HOURLY ROUNDING. WILL CONTINUE TO MONITOR.
[2020-05-26 08:49] VITALS: BP 117/60
--- NOTE | 2020-05-26 09:45 | H ---
[facility] [place] [address] HISTORY AND PHYSICAL Name: LUCRECIA MADRID Room #: 436-P ADM IN M.R.#: [id number] Admission: 05/23/20 Attend Phys: Chris Blackburn MD, Discharge: Date of : 37 Report #: [id number] THIS REPORT FOR: cc: Errol Shipley MD, John M. MD Mancuso,Chris Alvarez MD [facility] ~ DATE OF SERVICE: 05/23/2020 HISTORY OF PRESENT ILLNESS: The patient is an 84-year-old male well known to myself. He comes in last night after a fall at home. EMS was able to bring him in to [facility]. He was not really able to walk. Subsequently, found to have a slightly impacted left subcapital femoral neck fracture, in a fair amount of discomfort. His cardiac status has been stable and in fact I recently saw him in the office. Stable coronary artery disease with preserved ejection fraction. He has had prior coronary stents with the last of which was in 03/2012 and 2004, both to the right coronary artery. He has a permanent pacemaker placed at [facility]. Underlying paroxysmal AFib, although not anticoagulated because of recurrent bleeds and falls. The device was interrogated a week ago, normal functioning, ventricularly paced 88% with 10 years left on his battery. An echo was done in December of this year, LVH, EF 55%, moderately severe TR with a PA pressure of 60. Nuclear stress test, last stress test was done 3 years ago. No significant ischemia. He has bilateral carotid disease, 50% left carotid, 40% right carotid. He has been compliant with medications, baby aspirin, his eye drops, gabapentin, irbesartan 150, ketaconazole, Percocet 10/325, Requip 0.5 three times a day, and torsemide 20 mg. PAST MEDICAL HISTORY: Positive for coronary artery disease with stents, sick sinus and permanent pacemaker, underlying AFib, not anticoagulated due to falls, DJD, prior septal surgery, rotator cuff surgery, tonsillectomy, umbilical hernia repair, hypertension, hypercholesterolemia, sleep apnea, spinal stenosis. CT scan was also done of the LS spine yesterday and that revealed severe lumbar spondylosis with dextroscoliosis. SOCIAL HISTORY: He is and lives at home with his and one of his sons. He is retired. No current alcohol or tobacco, but previously. FAMILY HISTORY: Per above, he was never a tobacco user, has prior alcohol use. Two cups of coffee a day. FAMILY HISTORY: Multiple family members have had premature coronary artery disease. REVIEW OF SYSTEMS: Negative except for as already stated above. [facility] [address] [place] [address] HISTORY AND PHYSICAL Name: LUCRECIA MADRID Room #: 436-P [facility] IN M.R.#: [id number] Admission: 05/23/20 Attend Phys: Chris Blackburn MD, Discharge: Date of : 37 Report #: [id number] LABORATORY WORK: Sodium 144, potassium 3.8, creatinine 1.7. This is his baseline. BUN 48. Troponin is 0.11 of no significance. H and H is 10 and 34.1. His EKG shows a paced rhythm. PHYSICAL EXAMINATION: GENERAL: He is in a moderate amount of discomfort. He is receiving morphine. VITAL SIGNS: Blood pressure 110/60, pulse 70. HEENT: Eyes reveal xanthelasmas, arcus senilis is noted. Pharynx is clear. Dry mucous membranes. NECK: Shows preserved upstrokes and left-sided bruit. LUNGS: Clear. CARDIOVASCULAR: Regular rate and rhythm, S1, S2. ABDOMEN: Soft. No HSM or abdominal bruit. EXTREMITIES: Reveal trace of edema. Some venous stasis changes. NEUROLOGIC: Nonfocal. SKIN: Warm and dry with the mild venous stasis changes, but no ulcers. MUSCULOSKELETAL: He has a left hip fracture. He is not ambulating. He is in significant discomfort. ASSESSMENT: 1. Left hip subcapital impacted fracture. 2. Coronary artery disease, stable. 3. Hypertension. 4. Hypercholesterolemia. 5. Sick sinus syndrome, permanent pacemaker. 6. History of diet-controlled diabetes. 7. Stable carotid stenosis. RECOMMENDATIONS AND PLAN: We will continue with gentle hydration. We will ____. I have discussed with Ortho that will be seeing him. His EKG when he is not paced is atrial fibrillation with ST abnormalities, which were previously noted to clarify. We will proceed to the OR in the morning. <ELECTRONICALLY SIGNED> By: Chris Blackburn MD, FACC 05/26/20 0945 0835 0856 Chris Blackburn MD, FACC /nt
--- NOTE | 2020-05-26 09:50 | NUR ---
ON-GOING ASSESSMENT: TIFFANIE REVIEWED CHART AND SPOKE WITH PTS ABOUT POST ACUTE CARE. SHE STATES PT HAS BEEN TO [facility] IN THE PAST AND WOULD LOVE IF HE COULD GO THERE AGAIN AND REQUESTING A CONSULT. TIFFANIE REACHED OUT TO ATTENDING AND HE IS AGREEABLE AND CONSULT FOR [facility] WAS PLACED. SHE ALSO WANTS A REFERRAL TO [facility] A BACKUP. REFERRAL WAS SENT.
--- NOTE | 2020-05-26 15:06 | NUR ---
ON-GOING ASSESSMENT: CM REVIEWED CHART AND SPOKE WITH [facility] ON [facility] WHO REPORTS THEY CAN ACCEPT PT FOR ADMISSION ONCE MEDICALLY STABLE. CM WILL CONTINUE TO FOLLOW TO ASSIST NEEDED.
[2020-05-26] MEDS ORDERED: ACETAMINOPHEN325 M1 PO (15:08)
[2020-05-26] MEDS ORDERED: NEURONTIN 400400 M1 PO (15:08)
[2020-05-26] MEDS ORDERED: HUMALOG100 UNIT/1 SUBQ (15:08)
--- NOTE | 2020-05-26 15:54 | NUR ---
ASSUMED CARE OF THE PATIENT AT 0715, PATIENT ALERT AND ORIENTED X 3. PATIENT DENIES PAIN AT THIS TIME. PATIENT WORKED WITH PHYSICAL THERAPY/EDILBERTO THIS AM AND THIS AFTERNOON. PATIENT HAS PATRICK DRESSING TO LEFT HIP AREA, SCD'S AND ALEJANDRA HOSE IN PLACE. IV TEAM REPLACED IV TO LEFT FOREARM, IV FLUIDS AT 100CC/HR. PATIENT WILL DISCHARGE TO [facility] THIS SHIFT. WAS HERE THIS AM, UPDATE GIVEN FOR THE PLAN FOR TODAY. WILL AWAIT [address] [place] [place] [address] FOR REPORT. WILL CONTINUE TO MONITOR.
[2020-05-26 16:55] VITALS: BP 122/66
--- NOTE | 2020-06-02 12:48 | O ---
[facility] [place] [address] [place] [address] OPERATIVE REPORT Name: LUCRECIA MADRID Room #: 436-P [facility] IN M.R.#: [id number] Admission: 05/23/20 Attend Phys: Chris Blackburn MD, Discharge: 05/26/20 Date of : 39 Report #: [id number] THIS REPORT FOR: cc: Errol Shipley MD, John M. MD Abraham,Jd Alvarez MD ~ DATE OF SERVICE: 05/25/2020 PREOPERATIVE DIAGNOSIS: Left femoral neck fracture. POSTOPERATIVE DIAGNOSIS: Left femoral neck fracture. PROCEDURE: Left hip hemiarthroplasty. SURGEON: Jd Salinas M.D. CLINICAL SAFETY SPECIALIST: Marisol Watts P.A.-C. INDICATIONS FOR CLINICAL SAFETY SPECIALIST: Throughout the case, extensive retraction and manipulation of the hip including dislocation and reduction was required. This was afforded to me by my teachers' assistant. ANESTHESIA: General. IMPLANTS: Gilman and Nephew size 11 Conquest cemented hemiarthroplasty stem, a size 52+0 cobalt chrome unipolar head. ESTIMATED BLOOD LOSS: Less than 100 mL. COMPLICATIONS: None. SPECIMENS: None. CONDITION UPON LEAVING THE OPERATING ROOM: Stable. INDICATIONS FOR PROCEDURE: The patient is an 84-year-old gentleman who fell and sustained a left femoral neck fracture. After discussion with him and his family, they elected for hemiarthroplasty. DESCRIPTION OF PROCEDURE: Risks, benefits, alternatives, complications were discussed in detail with the patient including but not limited to risk of anesthesia, risk of damage to nerves, arteries, blood vessels, risk for infection, bleeding, risk for continued hip pain, leg length discrepancy, instability and need for reoperation. Informed consent was obtained from the patient. Left hip was appropriately marked in the preoperative holding area. [address] [address] OPERATIVE REPORT Name: MERCYLUCRECIA Room #: 436-P [facility] IN M.R.#: [id number] Admission: 05/23/20 Attend Phys: Chris Blackburn MD, Discharge: 05/26/20 Date of : 39 Report #: [id number] IV Ancef was given for preoperative antibiotics. He was brought to the operating room and placed in the supine position on operating room table. General anesthesia was induced without complication. He was placed in the right lateral decubitus position with the left hip uppermost. Left hip and lower extremity were prepped and draped in normal sterile fashion. Timeout was performed properly identifying the patient and procedure as well as the instrumentation. All in the operating room were in agreement. Standard posterior approach to the hip was made with 10 blade through the skin. Dissection was taken down to the fascia with Bovie cautery and then deep flaps were developed with Cassidy elevator. Fresh 10 blade was used to make a fascial incision. This was taken proximally and distally with curved Hdz scissors. Charnley retractor was placed. Piriformis tendon was identified, tagged and taken down with Bovie cautery. Short external rotators were also taken down with Bovie cautery. Capsulotomy was made and capsule ends were tagged for later repair. Hip was dislocated. There was an obvious femoral neck fracture. Femoral neck cut was made 1 cm proximal to lesser trochanter based on templating and the femoral neck was removed. The femoral head was then removed from the acetabulum and sized, found to be a size 52, size 52 trial head was placed and found to have a good fit. Attention was turned to the femur. This was reamed and broached up to a size 13, at which point, the size 13 broach was stable. This was trialed with a standard offset neck and a 52+0 head. Hip was reduced, taken through range of motion, found to be stable. Hip was dislocated. The broach was removed. A final size 11 Conquest stem was cemented in place using standard cementation techniques. After the cement cured, this was trialed with a 52+0 head. Hip was reduced, taken through range of motion, found to be stable. Hip was dislocated one last time and a final size 52+0 cobalt chrome unipolar head was placed. Hip was reduced, taken through range of motion, found to be stable, found to have equal leg lengths. Periarticular injection consisting of morphine, ropivacaine, epinephrine and Toradol was placed around the hip joint capsule. A gram of vancomycin was placed deep in the capsule. Capsule and piriformis were repaired with 0 FiberWire. Fascia was closed with 0 Vicryl, skin was closed with 2-0 Vicryl, skin staple and a PATRICK dressing was applied. The patient tolerated this procedure well and went to recovery room under the care of anesthesia postoperatively. <ELECTRONICALLY SIGNED> By: Jd Salinas MD 06/02/20 1248 1630 1730 Jd Salinas MD /nt
== END 2020-05-26 17:50 | disposition designated cancer center or children's hospital (05) | DRG 522 ==
LOC: ER 16:46 → EROBS 18:45 → 4S 18:45
PROVIDERS: Emergency Medicine; Nurse Practitioner Adult Health; Orthopaedic Surgery; ADMIT Internal Medicine Cardiovascular Disease; ATTEND Internal Medicine Cardiovascular Disease
PROC: 0SRB0J9 Replacement of Left Hip Joint with Synthetic Substitute, Cemented, Open Approach (ICD-10-PCS; principal; 2020-05-25)
DX: S72.002A Fracture of unspecified part of neck of left femur, initial encounter for closed fracture (principal); I13.0 Hypertensive heart and chronic kidney disease with heart failure and stage 1 through stage 4 chronic kidney disease, or unspecified chronic kidney disease; D62 Acute posthemorrhagic anemia; I25.10 Atherosclerotic heart disease of native coronary artery without angina pectoris; G25.81 Restless legs syndrome; M10.9 Gout, unspecified; I50.9 Heart failure, unspecified; E78.00 Pure hypercholesterolemia, unspecified; M48.00 Spinal stenosis, site unspecified; N18.9 Chronic kidney disease, unspecified; Z20.822 Contact with and (suspected) exposure to COVID-19; E11.22 Type 2 diabetes mellitus with diabetic chronic kidney disease; M19.90 Unspecified osteoarthritis, unspecified site; E78.5 Hyperlipidemia, unspecified; E11.42 Type 2 diabetes mellitus with diabetic polyneuropathy; I48.91 Unspecified atrial fibrillation; Z79.01 Long term (current) use of anticoagulants; Z79.82 Long term (current) use of aspirin; Z79.891 Long term (current) use of opiate analgesic; Z90.89 Acquired absence of other organs; Z95.5 Presence of coronary angioplasty implant and graft; Z79.899 Other long term (current) drug therapy; Z91.018 Allergy to other foods; Z91.010 Allergy to peanuts; Z95.0 Presence of cardiac pacemaker; Z87.891 Personal history of nicotine dependence
CPT/HCPCS: 10102; 50010; 50101; 50382; 50414; 51057; 51130; 51225; 51226; 51412; 53000; 53078; 56460; 56524; 56528; 56530; 57095; 57103; 57165; 62110; 62900; 70005

== ENCOUNTER 2020-05-26 14:07 | Inpatient (IN) | payer OTHER ==
[~2020-05-26] VITALS: Ht 200.7 cm; Wt 84.5 kg
--- NOTE | ~2020-05-26 | H ---
[facility] [place] [address] HISTORY AND PHYSICAL Name: LUCRECIA MADRID Room #: 510-P ADM IN M.R.#: [id number] Admission: 05/26/20 Attend Phys: Amilcar Renteria MD Discharge: Date of : 37 Report #: [id number] THIS REPORT FOR: cc: Errol Shipley MD, John M. MD Smithson, David G. MD ~ DATE OF SERVICE: 05/26/2020 HISTORY OF PRESENT ILLNESS: The patient is an 84-year-old white male originally admitted to [facility] on 05/23/2020 from home after a mechanical fall resulting in left hip pain. He was found to have a left femoral neck fracture. Denied loss of consciousness or head injury. Orthopedics was consulted and he underwent a left hip hemiarthroplasty on 05/25/2020 and is allowed weightbearing as tolerated. He had postop acute blood loss anemia. Hemoglobin was 10.9 prior to surgery and down to 8.1. He is followed with a history of coronary artery disease, hypertension, diabetes mellitus type 2, atrial fibrillation, sick sinus syndrome, status post permanent pacemaker and degenerative arthritis. He was felt to be medically ready and cleared for acute in-hospital inpatient rehabilitation. Cardiology was closely involved regarding his medical management. PAST MEDICAL HISTORY: Prior medical history includes pyloric stenosis, coronary artery disease with prior coronary stenting, sleep apnea with CPAP, non-insulin dependent diabetes mellitus, hypertension, restless leg syndrome, right shoulder rotator cuff repair, carpal tunnel surgery, permanent pacemaker implant, L3-L4 laminectomy, right reverse total shoulder surgery, colonoscopy, gout, CHF, AFib and bradycardia. HABITS: Cigarettes 1 pack per day, quit greater than a year ago. He is a former smoker. Alcohol use is noted to be a couple of beers per day. SOCIAL HISTORY: Lives at home with his and son, has a stair glide can avoid stairs. Used a [id number]-2-rrsbhdm walker or front-wheeled walker, was independent with ADLs, right-handed and has not driven in 3 years or so. Noted to be hard of hearing with bilateral hearing aids in. REVIEW OF SYSTEMS: No headache, visual complaints or other specific musculoskeletal complaints other than that expected with the hip. No skin issues, bowel or bladder changes were noted. Review of systems otherwise appeared to be benign. PHYSICAL EXAMINATION: GENERAL: An 84-year-old white male in no obvious distress. The patient is alert. VITAL SIGNS: Last recorded temperature 97.8, pulse 72, respirations 20, and [address] [address] HISTORY AND PHYSICAL Name: LUCRECIA MADRID Room #: 510-P [facility] IN .R.#: [id number] Admission: 05/26/20 Attend Phys: Amilcar Renteria MD Discharge: Date of : 37 Report #: [id number] blood pressure 135/56. HEENT: Appeared to be benign. He is quite hard of hearing. NEUROLOGIC: Cranial nerves grossly intact. Facies are symmetric. CHEST: Sounded clear to auscultation. CARDIOVASCULAR: Sounded regular rate and rhythm. ABDOMEN: Bowel sounds positive, nontender. GENITOURINARY AND RECTAL: Deferred. EXTREMITIES: Left hip is dressed. There is no calf swelling bilaterally. He has trace bilateral lower extremity edema. Venous stasis changes are noted. Transfers have been max assist sit to stand. He has ambulated a short distance with a front-wheeled walker. LABORATORY DATA: BUN is up some today at 78, creatinine 2.3, it was 1.8. ASSESSMENT: An 84-year-old white male with the following problem list: 1. Left femoral neck fracture, status post left hip hemiarthroplasty on 05/25/2020. Weightbearing as tolerated. 2. Renal insufficiency with some increase in BUN and creatinine. We will have the nurse contact Cardiology as they have been consulted regarding medical issues. 3. Degenerative arthritis. 4. Type 2 diabetes mellitus with peripheral neuropathy. 5. Hypertension. 6. Atrial fibrillation with sick sinus syndrome and history of permanent pacemaker. 7. Chronic kidney disease, see above. PLAN: The patient has been admitted for acute in-hospital inpatient rehabilitation. Please see the patient's previous and current status. He had been using a front-wheeled walker premorbidly. As far as risk of complications, he does have multiple medical comorbidities as noted above. Initial plan of care involves the interdisciplinary acute inpatient rehabilitation program. Measurable functional goals would be for him to become modified independent with transfers, mobility, ADLs, so that he can hopefully return back to the home setting. Speech therapy is also involved regarding cognition and communication issues. Prognosis is reasonably good with estimated length of stay probably around 10 days or so, pending progress. Potential barriers would include his multiple medical comorbidities and decreased functional status. The patient meets diagnostic criteria for an acute in-hospital inpatient rehabilitation stay. He meets the medical necessity criteria and we will have [address] [address] HISTORY AND PHYSICAL Name: LUCRECIA MADRID Room #: 510-P ADM IN M.R.#: [id number] Admission: 05/26/20 Attend Phys: Amilcar Renteria MD Discharge: Date of : 37 Report #: [id number] the cisco consultant physicians continue to follow. He does have the tolerance for therapies and has appropriate discharge goals back to the home setting. By: 0822 0844 Amilcar Renteria MD /nt
--- NOTE | ~2020-05-26 | HC ---
[facility] [place] [place] [address] CONSULTATION Name: LUCRECIA MADRID Room #: 506-1 ADM IN M.R.#: [id number] Admission: 05/26/20 Attend Phys: Amilcar Renteria MD Discharge: Date of : 37 Report #: [id number] THIS REPORT FOR: cc: Errol Shipley MD, John M. MD Deutch, Neal B. PhD ~ DATE OF SERVICE: 05/30/2020 NEURO BEHAVIORAL STATUS EXAMINATION ATTENDING PHYSICIAN: Amilcar Renteria MD SUPERVISOR SAWMILL: Bonilla Zhang, PhD CLINICAL PRESENTATION: The patient is an 84-year-old male admitted to the rehabilitation unit for comprehensive inpatient rehabilitation program. He was initially admitted to the hospital following a fall in which he experienced left hip pain. The patient was noted to have a left femoral neck fracture. He does not report a loss of consciousness or head trauma from the fall. He has a prior medical history that includes pyloric stenosis, coronary artery disease with prior coronary stenting, sleep apnea with CPAP, non-insulin dependent diabetes mellitus, hypertension, restless leg syndrome, right shoulder rotator cuff repair, carpal tunnel surgery, permanent pacemaker implant, L3-L4 laminectomy, right reverse total shoulder surgery, colonoscopy, gout, CHF, AFib, and bradycardia. His assessment on admission to the rehabilitation unit included a left femoral neck fracture, status post left hip hemiarthroplasty on 05/25/2000, weightbearing as tolerated, renal insufficiency with some increased BUN and creatinine, degenerative arthritis, type 2 diabetes mellitus with peripheral neuropathy, hypertension, atrial fibrillation with sick sinus syndrome and history of permanent pacemaker, chronic kidney disease. A complete description of his medical condition and history along with medications can be found in his medical record. Neuropsychological consultation was requested to provide assistance in the assessment of cognitive and emotional status and to provide recommendations and services. Prior to this most recent admission, he was living at home with his and son. The patient quit smoking about 12 months ago. The patient has 3 children. He reports having quit driving 3 years ago. He is a high school graduate. 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 The patient reports having a history of alcohol abuse. Current alcohol use may also be excessive. Short term memory deficits are described over the last the last couple of years is reported. [facility] [address] [place] [address] CONSULTATION Name: LUCRECIA MADRID Room #: 506-1 [facility] IN ..#: [id number] Admission: 05/26/20 Attend Phys: Amilcar Renteria MD Discharge: Date of : 37 Report #: [id number] TECHNIQUES UTILIZED: Clinical interview, review of medical records, staff consultation and behavioral observation, mini mental status exam 2 standard version and clock drawing. EXAMINATION FINDINGS: The patient was cooperative with the assessment. However, he required frequent orientation to maintain an adequate level of alertness during the assessment. He appeared lethargic and sedated. Symptoms are reported to include sleep disturbance, although that has improved, decreased appetite, problems with memory and word finding that have about 2 year duration. Frustration with difficulty in cognition is described. He is also hard of hearing. He does not report auditory or visual hallucinations. There is no evidence of thought disorder or aphasia. Performance on the MMSE 2 brief version is in the mild to moderate range of impairment with a raw score of 13/16. He was 3/3 for initial registration, 5/5 for orientation to time and place and 0/3 for immediate recall of 3 items after a brief time delay and distraction. His performance on the MMSE 2 standard version was in the average range with a raw score of 25/30 and a T score of 44, which is at the 27th percentile. He was 4/5 for serial sevens, 2/2 for naming, 1/1 for repetition, 3/3 for auditory comprehension. He could read and follow single command and write a sentence. The patient was unable to copy a simple geometric design. He also had difficulty with clock drawing. Variability in his level of orientation is suggested because of frequent requirement for him to maintain a level of alertness during the assessment. Speech therapy notes moderate deficits in comprehension and difficulty with expression. The patient is presenting with impaired cognition. The extent of that is likely to be affecting concentration and visual spatial construction, contributing to his presentation may be medication with sedating features. 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 The patient requires encouragement to maintain alertness and orientation. Verbal praise and complements during therapies will be helpful to maintain involvement. Alcohol use should be strongly discouraged. Compensatory strategies from speech therapy will be helpful. He will require assistance at home with the management of medication and finances to maintain safety. [facility] [address] [place] [address] CONSULTATION Name: LUCRECIA MADRID Room #: 506-1 [facility] IN M.R.#: [id number] Admission: 05/26/20 Attend Phys: Amilcar Renteria MD Discharge: Date of : 37 Report #: [id number] followup neuropsychological evaluation may also be helpful following discharge to clarify cognitive deficits. Thank you very much for allowing me to provide the consultation on this patient. By: [id number] 1749 Bonilla Zhang, PhD /nt
--- NOTE | ~2020-05-26 | PLAN ---
[facility] [place] [address] REHAB UNIT PLAN OF CARE Name: LUCRECIA MADRID Room #: 506-1 ADM IN M.R.#: [id number] Admission: 05/26/20 Attend Phys: Amilcar Renteria MD Discharge: Date of : 39 Report #: [id number] THIS REPORT FOR: cc: Errol Shipley MD, John M. MD Smithson,Amilcar Barnes MD ~ DATE OF SERVICE: 05/29/2020 PROGRESS NOTE/OVERALL PLAN OF CARE SUBJECTIVE: The patient was seen back earlier. He was in no distress. OBJECTIVE: VITAL SIGNS: Temperature 37.2, pulse 72, respirations 18, blood pressure 125/66. GENERAL: He has not had any chest pain. Monitoring his O2 saturation. ABDOMEN: No abdominal pain or nausea is noted. EXTREMITIES: Bilateral lower extremity edema is stable with ALEJANDRA hose. Sit to stand is max assist, but once he is up, he is ambulating 52 feet with min assist with a front-wheeled walker. He has also starting to go up and down some steps. NEUROLOGIC: He has vwtyvzqf-wj-wlbrzs memory deficits. ASSESSMENT: 1. Left femoral neck fracture, status post hemiarthroplasty, weightbearing as tolerated. 2. Acute blood loss anemia. 3. Degenerative arthritis. 4. Diabetes mellitus type 2 with peripheral neuropathy. 5. Hypertension. 6. Atrial fibrillation, sick sinus syndrome, history of permanent pacemaker. 7. Chronic kidney disease. 8. History of idiopathic thrombocytopenic purpura. 9. DVT/PE prophylaxis. Please see Cardiology notes. We have been holding off with the anemia and to resume when okay with Cardiology. Continuing SCDs and encouraging mobilization. PLAN: The overall plan of care is based on the preadmission screen and information garnered from therapy assessments. 1. Estimated length of stay is probably at least 10 days or so. 2. Medical prognosis is reasonably good. 3. Anticipated interventions include the interdisciplinary acute inpatient rehabilitation program. 4. Anticipated functional outcomes would be for the patient to become modified independent with transfers, mobility and ADLs and to improve as far as cognition, so that he can hopefully return back to his prior living situation. [facility] [address] [place] [address] REHAB UNIT PLAN OF CARE Name: LUCRECIA MADRID Room #: 506-1 ADM IN M.R.#: [id number] Admission: 05/26/20 Attend Phys: Amilcar Renteria MD Discharge: Date of : 39 Report #: [id number] 5. Discharge destination would be back to the home setting where he lives with his and son. 6. Expected therapy by discipline includes PT, OT and speech 1 hour per day each five days a week throughout the duration of the acute inpatient rehabilitation stay. ADDENDUM: The patient's prognosis for significant practical improvement within a reasonable period of time appears good. Given the patient's complex medical condition and risk of further medical complication, rehabilitation services could not be safely provided at a lower level of care such as a jail facility. Please see the progress note that is already documented for today as well. I agree with the contents of the progress note. By: [id number] Amilcar Renteria MD /PMT
[2020-05-26] MEDS ORDERED: HUMALOG100 UNIT/1 SUBQ (15:08)
[2020-05-26] MEDS ORDERED: NEURONTIN 400400 M1 PO (15:08)
[2020-05-26] MEDS ORDERED: ACETAMINOPHEN325 M1 PO (15:08)
[2020-05-26 18:09] VITALS: BP 135/56
--- NOTE | 2020-05-27 01:00 | NUR ---
PAIENT ADMITTED FROM 4S. IS ALERT X 3. SKIN WARM AND DRY. IS CONFUSED AT TIMES AMND VERY [place], DOES HAVE 2 HEARING AIDES IN EARS. GLASSES AT BEDSIDE. HAS A LEFT HFEMORAL FX OF NECK HAD A LEFT HEMIARTHROPLASTY. DRESSING DRY ANHD INTACT. PATRICK INTACT IN LEFT HIP AREA. NO REDDNESS TO COCCYX AREA. NO PAIN STATED.INCONT OF SOME URINE NOTED, DOES USE HIS URINAL BUT SPILLS IT. LUNGS CTA.HAS A IV SL IN LEFT ARM. FLUSHES WELL. HAS A PACEMAKER. WEIGHT BEARING ELIECER. HAS NOT BEEN UP.UP WITH 1-2 PERSON ASSIST. FULL WT BEARING. IS A FULL CODE. CONT PLAN OF CARE. DENIES ANY PAIN.
--- NOTE | 2020-05-27 03:39 | NUR ---
PATIENT VERY CONFUSED THIS AM, AT 0330 ASKING TO HAVE BREAKFAST. WILL ENCOURGE HIM TO GO BACK TO SLEEP AND I WILL ORDER MEAL IN AM. REORIENTATED PATIENT.
[2020-05-27 06:08] LABS: HEMATOCRIT 24.5 % (42.0-52.0); HEMOGLOBIN 7.8 gm/dL (14.0-18.0); MCH 31.7 pg (26.0-34.0); MCHC 31.9 g/dL (28.0-37.0); MCV 99.2 fL (80.0-100.0); RBC 2.47 mil/uL (4.50-6.00); RDW 16.7 % (10.5-14.5); WBC 9.9 thou/uL (4.0-11.0)
[2020-05-27 06:45] LABS: CALCIUM 8.7 mg/dL (8.5-10.1); CREATININE 2.3 mg/dL (0.7-1.3); POTASSIUM 4.7 mmol/L (3.5-5.1)
[2020-05-27 06:51] LABS: FOLIC ACID 16.2 ng/mL (8.6-58.9)
[2020-05-27 08:00] VITALS: BP 126/70
[2020-05-27 10:07] LABS: ABSOLUTE RETIC COUNT 0.0609 10^6/uL; OBSERVED RETIC COUNT 2.42 % (0.6-2.6)
[2020-05-27 10:09] LABS: % SATURATION 8 % (20-39); IRON 20 ug/dL (65-175); TIBC 243 ug/dL (250-450)
--- NOTE | 2020-05-27 12:41 | NUR ---
Case opened to follow for dc planning. Pt admitted to acute rehab yesterday evening. Pt and family familiar with the unit from a stay in 2012. The pt had a fall with resulting hip fx and s/p lt hemiarthoplasty on 05-25-20. Covid neg 05-23-20 and is WBAT. He lives at home with his and son Dmitriy. The pt has a stair glide in place at home and a rwalker. He utlizes hearing aides and glasses. He is being followed by cardiology and ortho. His pcp is Dr.John Shipley. He has a hx of HH with [facility] and has been to SNF in the past. Pt and family hoping he will be able to return home at dc. Team conference anticipated next Monday. Will need to f/u with pt/family regarding elos and any hh recommendations/agency preference. Family drives the pt to any appointments and assists with errands, nursing home director and finances. Will follow.
--- NOTE | 2020-05-27 18:40 | NUR ---
IV HAS BEEN REPLACED ONCE DUE TO SWELLING TODAY, AND HAS NOW INFILTRATED. IV FLUIDS HAVE BEEN STOPPED AND IV TEAM IS COMING TO ASSIST WITH OBTAINING A NEW ACCESS. PT IS C/O COCCYX PAIN, AND WAS ASSISTED BACK TO THE CHAIR, HE WA SUNABLE TO TOLERATE THE BED.
--- NOTE | 2020-05-27 19:00 | NUR ---
PT AND HIS BOTH NOTED THAT HE TAKES OXYCODONE 10 MG AT HOME, AND HE IS ONLY ON 5 MG HERE IN THE HOSPITAL. PT REQUESTED 2 TABS THIS EVENING WHEN REQUESTING PAIN MEDS, HOWEVER, RN NOTED TO HIM THAT HE HAS NOT REQUESTED ANYTHING ALL DAY FOR PAIN, AND THAT THE 5 MG IS WHAT IS ORDERED. THIS WAS GIVEN, AND WILL CONTINUE TO MONITOR FOR EFFECT.
[2020-05-27 19:28] VITALS: BP 129/61
[2020-05-28 01:06] LABS: GLYCOHEMOGLOBIN (HGB A1C) 7.5 % (4.8-5.6)
--- NOTE | 2020-05-28 02:56 | NUR ---
UP IN WHEELCHAIR UNTIL 2229. PAIN MED AT 0100 FOR PAIN IN RIGHT (NON-OPERATIVE) HIP, NOTES THAT HE USUALLY TAKES A STRONGER DOSE WHEN HE IS HOME. DECLINES OFFER OF ICE BAG TO EITHER HIP. BRIEF OFF AT 2229 AND HE HAS BEEN USING URINAL. LOW AIR LOSS THERAPY. IV FLUIDS TO HIRAM
[2020-05-28 06:11] LABS: HEMATOCRIT 25.5 % (42.0-52.0); MCH 31.6 pg (26.0-34.0); MCHC 31.4 g/dL (28.0-37.0); MCV 100.7 fL (80.0-100.0); RBC 2.54 mil/uL (4.50-6.00); RDW 16.8 % (10.5-14.5); WBC 8.8 thou/uL (4.0-11.0)
[2020-05-28 06:48] LABS: CALCIUM 8.8 mg/dL (8.5-10.1); POTASSIUM 4.8 mmol/L (3.5-5.1)
[2020-05-28 08:00] VITALS: BP 123/69
--- NOTE | 2020-05-28 09:53 | NUR ---
ASSUMED CARE AT 0700. PATIENT IS ALERT AND ORIENTED X4. PATIENT GOLDSMITH'S, CARDER BLANKETS ARE EQUAL. LUNGS ARE CLEAR AND DEMINISHED. ABD IS SOFT WITH BSX4. PATIENT HAS PICCO DRESSING TO HIS LEFT HIP. PATIENT HAS S.T. TO HIS RIGHT ELBOW. FALL AND SAFTY PROTOCOLS IN PLACE. C/O LEFT HIP PAIN. MEDICATED WITH PRN PAIN MED. CONTINUES TO PROGRESS SLOWLY TOWARDS D/C GOALS. PATIENT HAS S.L. N LHIS RIGHT ARM. IV SITE WITHOUT REDNESS OR SWELLING. WILL CONTINUE TO MONITER.
[2020-05-28 19:50] VITALS: BP 125/66
--- NOTE | 2020-05-29 03:15 | NUR ---
ASSESSED AT START OF SHIFT. PT RESTING IN BED. EVENING MEDS GIVEN AND PT ELIECER IT WELL. WEARS BRIEF. PT HAD 1 TIME INCONTINECE. URINAL AT BEDSIDE. PATRICK DRESSING IN LEFT HIP. BRUISES NOTED ON SKIN. FALL PREC IN PLACE AND CALL LIGHT AT REACH WILL CONT TO MONITOR.
[2020-05-29 06:11] LABS: HEMATOCRIT 24.6 % (42.0-52.0); HEMOGLOBIN 7.9 gm/dL (14.0-18.0); MCH 31.8 pg (26.0-34.0); MCHC 32.1 g/dL (28.0-37.0); MCV 98.9 fL (80.0-100.0); RBC 2.49 mil/uL (4.50-6.00); RDW 16.6 % (10.5-14.5); WBC 8.7 thou/uL (4.0-11.0)
[2020-05-29 06:28] LABS: CALCIUM 9.1 mg/dL (8.5-10.1); CREATININE 1.8 mg/dL (0.7-1.3); POTASSIUM 4.9 mmol/L (3.5-5.1)
[2020-05-29 07:20] VITALS: BP 125/66
--- NOTE | 2020-05-29 12:19 | NUR ---
ASSUMED CARE AT 0700. PATIENT IS ALERT AND ORIENTEDX4. PATIENT IS VERY [place]. PATIENT GOLDSMITH'S, CANARY BREEDER ARE EQUAL. LUNGS ARE CLEAR AND DEMINISHED. ABD IS SOFT WITH BSX4. PATIENT VOIDS EVER COLORED URINE PER URINAL. PATIENT HAS LEFT PICCO DRESSING THAT IS DRY AND INTACT. UP IN THE W/C FOR MEALS. FALL AND SAFETY PROTOCOLS IN PLACE. C/O LEFT HIP PAIN. MEDICATED WITH PRN PAIN MED. CONTINUES TO PROGRESS SLOWLY TOWARDS D/C GOALS. PATIENT IV CLOTTED OFF AND WOULD NOT FLUSH. S.L. DC'D. SITE WITHOUT REDNESS OR SWELLING. WILL CONTINUE TO MONITER.
--- NOTE | 2020-05-29 14:07 | NUR ---
PT'S BROUGHT IN A HOME MEDICATION LIST AND HIGHLIGHTED THOSE ITEMS THAT HE WAS ON JUST PIOR TO ADMISSION TO THE HOSPITAL. SHE DID NOT INCLUDE HIS EYE GTTS ON THE LIST, SHE STATED THAT HIS EYE GTTS WERE BROUGHT HERE TO THE HOSPITAL, AND THESE HAVE GONE MISSING. SHE PROVIDED THE NAME OF THE OPTHAMOLOGIST, AND WE WILL FOLLOW UP.
--- NOTE | 2020-05-29 14:11 | NUR ---
PT'S OPTHAMOLOGIST IS DR. HARDEEP CAMPUZANO, WORKING WITH DR. WM MORA.
[2020-05-29 20:00] VITALS: BP 131/63
--- NOTE | 2020-05-30 03:41 | NUR ---
assumed care approx 1900 evening 05/29. pt sleeping at change of shift. pt awoke to take meds with water tolerating well. pt voiding per urinal and also incontinent of urine requiring complete bed change. pt appears to be sleeping soundly with hourly rounding. bed alarm on and call light in reach. will continue to monitor.
[2020-05-30 06:01] LABS: HEMATOCRIT 23.3 % (42.0-52.0); HEMOGLOBIN 7.5 gm/dL (14.0-18.0); MCH 31.5 pg (26.0-34.0); MCV 98.6 fL (80.0-100.0); RBC 2.37 mil/uL (4.50-6.00); RDW 16.7 % (10.5-14.5)
[2020-05-30 08:00] VITALS: BP 131/76
--- NOTE | 2020-05-30 11:09 | NUR ---
ASSUMED CARE AT 0700. SLEPT FAIRLY ALRIGHT. HE REPORTED PAIN AT 6/10 AND WAS GIVEN A PAIN MED EARLIER TODAY AROUND 0530. HAS A PAIN PUMP IN ABDOMEN. PAIN IS TOLERABLE AND MANAGEABLE THIS MORNING. UP WITH OT AND WALKED TO BATHROOM WITH A WALKER. NOTED HIS L HIP DRESSING INTACT WITH DRIED DRAINAGE AND PATRICK IS NOT ATTTACHED AND IS BY THE BEDSIDE. APPETITE GOOD. PARTICIPATING WITH THERAPY AND PROGRESSING SLOWLY. EDEMA TO BOTH LE, LEGS ELEVATED. TOLERATED HIS MEDS WITH WATER.
[2020-05-30 19:17] VITALS: BP 136/72
--- NOTE | 2020-05-30 23:00 | NUR ---
DENIES PAIN THIS EVENING, APPRECIATES EYEDROPS, USING URINAL FOR SMALL AMOUNTS EVER. LEFT HIP DRESSING INTACT WITH OLD DRY DRAINAGE. PUMP APPARENT IN LEFT ABD IS MANAGING PAIN. SSI GIVEN FOR BLOOD SUGAR OF 186 AT HS.
--- NOTE | 2020-05-31 12:32 | NUR ---
ASSUMED CARE AT 0700. PT SLEPT FAIR. REPORTED PAIN IN HIS HIP AND MEDICATED WITH OXYCODONE AND TYLENOL. PAIN PUMP HELPS WITH PAIN CONTROLS WELL. L HIP DRESSING INTACT WITH LARGE AMT OF DRIED DRAINAGE NOTED. WALKED WITH PHY THERAPY TODAY AND NOTED TO THREAPY HE WAS NOT DOING TOO WELL DUE TO PAIN AND EASILY GETTING FATIGED AND SHORT OF AIR WITH EXERTION. 02 AT REST 99 - 100% ON RA. EDEMA IN BLE, ALEJANDRA HOSE ON AND BOTH LEGS ELEVATED. APPETITE FAIR, BS SUGAR CHECKED AND DID NOT REQUIRE AND INSULIN FOR BREAKFAST OR LUNCH. CONT TO MONITOR.
[2020-05-31 18:13] LABS: ABSOLUTE NEUTROPHILS 6.2 thou/uL (1.4-8.2); BASOPHILS 0.9 % (0.0-2.0); EOSINOPHILS 4.3 % (0.0-3.0); HEMATOCRIT 26.5 % (42.0-52.0); HEMOGLOBIN 8.4 gm/dL (14.0-18.0); LYMPHOCYTES 17.6 % (24.0-44.0); MCH 31.2 pg (26.0-34.0); MCHC 31.6 g/dL (28.0-37.0); MCV 98.7 fL (80.0-100.0); MONOCYTES 8.3 % (1.0-8.0); PLATELET COUNT 205 thou/uL (150-400); POLYS 68.9 % (36.0-66.0); RBC 2.69 mil/uL (4.50-6.00); RDW 16.8 % (10.5-14.5)
[2020-05-31 18:18] LABS: CALCIUM 9.4 mg/dL (8.5-10.1); CREATININE 1.6 mg/dL (0.7-1.3); POTASSIUM 4.7 mmol/L (3.5-5.1)
[2020-05-31 18:45] VITALS: BP 144/81
[2020-05-31 18:50] LABS: URINE BILIRUBIN NEGATIVE (Negative); URINE BLOOD TRACE (Negative); URINE CLARITY CLEAR; URINE COLOR YELLOW; URINE GLUCOSE-RANDOM* NEGATIVE (Negative); URINE KETONES NEGATIVE (Negative); URINE LEUKOCYTES 2+ (Negative); URINE NITRITE NEGATIVE (Negative); URINE PROTEIN (DIPSTICK) TRACE (Negative)
[2020-05-31 19:03] LABS: BACTERIA-REFLEX 1-9 Few /HPF (None Seen); CRYSTALS None Seen /LPF (None Seen); HYALINE CASTS 0-3 Few /LPF (None Seen); SQUAMOUS 0-3 Few /LPF (0-3); URINE RBC 0-2 Rare /HPF (0-2); URINE WBC-REFLEX >25 Many /HPF (0-5); YEAST-REFLEX Present (None Seen)
[2020-05-31 19:21] LABS: URINE NITRITE-REFLEX NEGATIVE (Negative)
[2020-05-31 21:00] VITALS: BP 134/69
--- NOTE | 2020-05-31 23:21 | NUR ---
AT CHANGE OF SHIFT DAY RN WAS CONCERNED ABOUT PT. SHE SAID THAT HE STARTED GETTING VERY TIRED AND SEDATED AROUND 4 PM. SHE CONTACTED GADIEL JOSEPH. ORDERS TO CONTINUE TO MONITOR PT - LABS AND URINE REPORTED AT THAT TIME. HS RN CONTACTED CARDIOLOGY DR MAGALLON REGARDING PT STATUS. PER ORDERS WILL CONTINUE TO MONITOR PT. VSS AND BG WNL AT THIS TIME. CHECKING PT FREQUENTLY. PT DOES WAKE UP AND WILL DRINK WATER WITH ASST FROM STAFF. THEN PT FALLS ASLEEP RIGHT AWAY. HE STATES THAT HE IS JUST VERY TIRED. CONTACTED HARVEY CORONADO. SHE CAME TO SEE PATIENT THAT SAID HE WAKES UP AND HIS VITAL SIGNS ARE ALL WNL. TO KEEP MONITORING AND CALL HER WITH ANY CHANGES. PT REMAINS THE SAME WITHOUT FURTHER DECLINE AT THIS TIME. WILL CONTINUE TO MONITOR FREQUENTLY.
[2020-06-01 07:15] VITALS: BP 134/70
--- NOTE | 2020-06-01 08:11 | NUR ---
EARLY THIS MORNING PT AWAKE AND TALKING WITH RN. VERY ALERT. CLEAR. ASST WITH REPOSITION. FUNGAL IN GROIN. APPLIED FUNGAL OINTMENT. INFORMED DAY RN. CONTACTED PLANT SAFETY LEADER WITH CARDIOLOGY THIS MORNING REGARDING MED ORDERS - SHE ORDERED TO HAVE THE HOSPITALIST GROUP FOLLOW PATIENT. ORDERED CONSULT. DAY RN UPDATED PLANT SAFETY LEADER REBA OF PT STATUS. GAVE PT STAT DOSE OF LACTULOSE THAT WAS ORDERED. FUNGAL POWDER ORDERED AND WILL BE APPLIED WHEN ARRIVES. PT WORKING WITH THERAPY AND MORE TIRED AGAIN. DAY RN DON TAKING OVER PT CARE.
--- NOTE | 2020-06-01 11:45 | NUR ---
ASSUMED CARE AT 0700. PATIENT IS ALERT AND ORIENTED, BUT FORGETFUL. PATIENT IS VERY [place]. HEARING AID PUT IN. GOLDSMITH'S, IRON BENDER ARE EQUAL. PATIENT VERY SLEEPY TODAY. LUNGS ARE CLEAR AND DEMINISHED. ABD IS SOFT WITH BSX4. PATIENT HAS BEEN INCONTINENT ON NOC. PATIENT VOIDED EVER COLORED URINE PER URINAL. PATIENT HAS YEAST IN HIS GROIN AREA. NYSTATIN POWDER APPLIED. FALL AND SAFETY PROTOCOLS IN PLACE. C/O PAIN IN HIS LEFT HIP. DRESSING REMOVED, R/T BEING SOILED. [place] BANDAID TO BE APPLIED. CONTINUES TO PROGRESS SLOWLY TOWARDS D/C GOALS. WILL CONTINUE TO MONITER.
[2020-06-01 19:37] VITALS: BP 131/70
--- NOTE | 2020-06-02 05:16 | NUR ---
PT ASSESSMENT COMPLETED AND VSS. MEDS GIVEN ORDERED AND WELL TOLERATED. PT MUCH MORE ALERT THIS EVENING. AWAKE AND TALKING WITH STAFF. PT DENIES PAIN. ASST WITH REPOSITION FOR COMFORT. INC OF URINE DURING THE NIGHT. PLACED DSG TO LEFT HIP. SOME DRAINAGE NOTED ON THE BANDAGE TO LEFT HIP. SCDS ON. SLEEPING WELL. REPOSITIONED FREQEUNTLY USING PILLOWS. WILL CONTINUE TO MONITOR FREQUENTLY.
[2020-06-02 08:00] VITALS: BP 123/56
--- NOTE | 2020-06-02 10:32 | NUR ---
WOUND CONSULT; THE PATIENT HAS A LEFT HIP INCISION WITH INTACT STABLE SURGICAL INCISION WITH ELIANE. NO ERYTHEMA. SLIGHT YELLOW TINGED DISCHARGE. THE PATIENT HAS A STAGE (2) PRESSURE INJURY TO THE COCCYX.1.5 X 1.5 X 0.5 FULL THICKNESS. NO S/S OF INFECTION. THE AREA IS MILDLY TENDER TO THE PATIENT PATIENT CANNOT COMPLETLY TURN HIMSELF. RECOMMENDATIONS; 1-TURN PATIENT Q2H AVOIDING THE SUPINE POSITION EXCEPT MEALS AND WITH THERAPY. 2-ZGUARD TO COCCYX BID/PRN. 3-LOW AIRLOSS BED PUMP DISCUSSED WITH STAFF 3-
--- NOTE | 2020-06-02 10:56 | NUR ---
ASSUMED CARE AT 0700. PATIENT IS ALERT AND ORIENTED, IS CONF[place]ER[place] AND FORGETFUL. PATIENT GOLDSMITH'S, BUREAU CHIEF ARE EQUAL. ABD IS SOFT WITH BSX4. PATIENT IS VOIDING EVER COLORED URINE, BUT HAS BEEN INCONTINENT OF URINE. PATIENT HAS YEAST RASH IN HIS GROIN AREA AND NYSTATIN POWDER IS BEING APPLIED. PATIENT CONTINUES ON LACULOSE FOR ELEVATED NH3 LEVEL. PATIENT CONTINUES ON ABT FOR UTI. UP IN THE W/C FOR MEALS. NEW WOUND NOTED ON PATIENTS COCCYX AREA. Z-GUARD APPLIED. WOUND CARE TEAM CONSULTED. UP IN THE CHAIR FOR MEALS. FALL AND SAFETY PROTOCOLS IN PLACE. C/O LEFT HIP PAIN FROM HIS SURG. MEDICATED WITH PRN PAIN MED. CONTINUES TO PROGRESS SLOWLY TOWARDS D/C GOALS. WILL CONTINUE TO MONITER.
--- NOTE | 2020-06-02 12:49 | NUR ---
REHAB TEAM CONFERENCE: PT ADMITTED TO ARU W/ LT FEMORAL NECK FX. PT HAS UTI AND PRESENTS W/DELIRIUM. PT HAS A SKIN TEAR THAT IS BEING TX. PT GAIT IS HAS DECLINED SINCE LAST WEEK, MOTOR PLANNING HAS DECREASED AND PT CANNOT USE WALKER TODAY. GAIT 5-6 FT W/FWW AND MOD ASSIST. 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 PER , SHE IS WORKING FROM HOME AND PT'S SON IS HOME 05/12, AND "WE DONT LIVE BILL ALONE ANYMORE." PT HAS HX W/INTERIM HH. PT HAS STAIRGLIDE, ROLLER WALKER. PT DOESNT HAVE TO NAVIGATE ANY STAIRS, STAIRLIFT GOES TO DECK AND ALL THE WAY DOWN TO THE BASEMENT. D/C TARGET DATE: MON, 06/12/20. WILL DISCUSS HH NEEDS AND POSS PRIVATE DUTY C/G WILL REVISIT NEXT TEAM.
[2020-06-02 19:30] VITALS: BP 105/43
--- NOTE | 2020-06-03 04:05 | NUR ---
TURNING PATIENT SIDE TO SIDE Q2H WITH INCONTINENCE CARE AND Z-GUARD TO COCCYX. HIWOT SUCTION FOR SMALL AMOUNT THICK YELLOW SPUTUM AT 2200 AFTER HAVING TROUBLE SWALLOWING MEDS D/T LETHARGY, LUNGS WERE SOUNDING CLEAR WITH MOST OF HIS TROUBLE RIGHT AT THE BACK OF HIS THROAT. DISCUSSED WITH HIS LILIAN THAT AFTER SUCTIONING HE NO LONGER SOUNDED IF HE WERE DROWNING AND QUICKLY WENT BACK TO SLEEP WITH A MORE NORMAL SNORING SOUND. SHE RELATES THAT HE GETS WEAK LIKE THIS EVERY TIME HE IS IN THE HOSPITAL AND IT IS A SHAME HE FALLS AT HOME SO EASILY.
[2020-06-03 05:43] LABS: ABSOLUTE NEUTROPHILS 15.2 thou/uL (1.4-8.2); BASOPHILS 0.4 % (0.0-2.0); EOSINOPHILS 0.7 % (0.0-3.0); HEMATOCRIT 26.4 % (42.0-52.0); HEMOGLOBIN 8.1 gm/dL (14.0-18.0); LYMPHOCYTES 4.5 % (24.0-44.0); MCH 30.3 pg (26.0-34.0); MCHC 30.6 g/dL (28.0-37.0); MCV 99.1 fL (80.0-100.0); MONOCYTES 6.2 % (1.0-8.0); PLATELET COUNT 228 thou/uL (150-400); POLYS 88.2 % (36.0-66.0); RBC 2.67 mil/uL (4.50-6.00); RDW 17.7 % (10.5-14.5); WBC 17.2 thou/uL (4.0-11.0)
[2020-06-03 05:54] LABS: CALCIUM 8.9 mg/dL (8.5-10.1); CREATININE 1.7 mg/dL (0.7-1.3); MAGNESIUM 1.9 mg/dL (1.8-2.4); POTASSIUM 4.9 mmol/L (3.5-5.1)
[2020-06-03 08:00] VITALS: BP 102/40
[2020-06-03] MEDS ORDERED: PULMICORT0.5 MG/22 INH (09:10)
[2020-06-03] MEDS ORDERED: VITAMIN D21250 MC1 PO (09:10)
[2020-06-03] MEDS ORDERED: XALATAN2.5 ML OPHTHALMIC (09:10)
[2020-06-03] MEDS ORDERED: MIRALAX17 GM PO (09:10)
[2020-06-03] MEDS ORDERED: IPRAT-ALBUT 0.5-3 ML INH (09:10)
[2020-06-03] MEDS ORDERED: TYLENOL EXTRA500 MG PO (09:10)
[2020-06-03] MEDS ORDERED: IRON325 PO (09:10)
[2020-06-03] MEDS ORDERED: NYAMYC15 GM TOP (09:10)
[2020-06-03] MEDS ORDERED: COLACE100 MG PO (09:10)
[2020-06-03] MEDS ORDERED: LACTULOSE20 GM/30 M PO (09:10)
--- NOTE | 2020-06-03 10:03 | NUR ---
VAT CALLED FOR MIDLINE. PT'S LABS,MEDS,HX REVIEWED. GENE BRACHIAL WAS WIDELY PATENT WITH USG. 4FR POWER ML TRIMMED TO 10CM INSERTED TO 0CM WITH BRISK BR.PT TOLERATED WELL.RELEASED FOR IMMEDIATE USE PER PROTOCOL TO CHYNA LA
--- NOTE | 2020-06-03 10:32 | NUR ---
ASSUMED CARE AT 0700. PT IS LETHARGY AND NOT ORIENTATED. OPENS EYES TO CALL AND DOZES OFF TO SLEEP AGAIN. HE MOANS MOST OF THE TIME WHEN QUESTIONS ASKED. ALSO NEZ PERCE BUT NOTED SIGNIFICANT CHANGE OF MENTAL STATUS. HE IS UNABLE TO FOLLOW COMMANDS AND ELECTRIC TAPE SLITTER IS WEAK. PUPILS ARE EQUAL BUT SLIGHTLY SLUGGISH. HS NURSE UNABLE TO GIVE HIS 0700 MEDS. PT IS PLACED SEMI FOWLERS WITH [address] AFEBRILE, FREQ VITAL SIGN WARRANTED PER NURSING JUDGEMENT. BP 102/40 TEMP 97.6 HR 72 SAT 95% ON 2L. SEEN BY DR WEBSTER AND NINFA MEDICAL CLAIMS EXAMINER, PT KEPT NPO AND PLAN TO TRANSFER TO ACUTE CARE. ORDERS RECEIVED FOR IV ZOSYN, IV TEAM CALLED AND PUT A MIDLINE IN HIS L AC. REQUESTED FOR A COVID PCR TESTING PRIOR TO TRANSFER PER PROTOCOL. IV ZOSYN ONE TIME LOADING DOSE STARTED AT 1015 WITH IV FLUID RUNNING AT 75ML/HR. THERAPY IS BASED ON PT COGNITIION AND COMPREHENSION.
[2020-06-03 12:00] VITALS: BP 108/50
[2020-06-03 16:00] VITALS: BP 108/53
[2020-06-03 19:05] VITALS: BP 100/56
--- NOTE | 2020-06-03 22:16 | NUR ---
PT ALERT AND ORIENTED X 1, CONFUSED. 02 ON AT 2L PER NC. PT REMOVES O2 FREQUENTLY AND REAPPLIED. INCONT OF URINE IN LARGE AMTS. IV INFUSING ORDERED. BLOOD SUGAR 81 AT HS. LEFT HIP DRESSING C/D/I. PT DENIES PAIN OR DISCOMFORT. BED ALARM ON FOR SAFETY. REPORT CALLED TO BESSIE PETERS ON 4 SOUTH AT 6030.
== END 2020-06-03 22:28 | disposition short-term general hospital (02) | DRG 536 ==
PROVIDERS: Nurse Practitioner; Nurse Practitioner Adult Health; Nurse Practitioner Family; Specialist; ADMIT Physical Medicine & Rehabilitation; ATTEND Physical Medicine & Rehabilitation
DX: S72.002A Fracture of unspecified part of neck of left femur, initial encounter for closed fracture (principal); D62 Acute posthemorrhagic anemia; I13.0 Hypertensive heart and chronic kidney disease with heart failure and stage 1 through stage 4 chronic kidney disease, or unspecified chronic kidney disease; N39.0 Urinary tract infection, site not specified; M19.90 Unspecified osteoarthritis, unspecified site; I48.91 Unspecified atrial fibrillation; I49.5 Sick sinus syndrome; E11.22 Type 2 diabetes mellitus with diabetic chronic kidney disease; N18.9 Chronic kidney disease, unspecified; I25.10 Atherosclerotic heart disease of native coronary artery without angina pectoris; G25.81 Restless legs syndrome; Z96.611 Presence of right artificial shoulder joint; I50.9 Heart failure, unspecified; K59.00 Constipation, unspecified; E55.9 Vitamin D deficiency, unspecified; K21.9 Gastro-esophageal reflux disease without esophagitis; W18.39XA Other fall on same level, initial encounter; E11.42 Type 2 diabetes mellitus with diabetic polyneuropathy; I11.0 Hypertensive heart disease with heart failure; M10.9 Gout, unspecified; R41.9 Unspecified symptoms and signs involving cognitive functions and awareness; Z20.822 Contact with and (suspected) exposure to COVID-19; G47.30 Sleep apnea, unspecified; Z95.0 Presence of cardiac pacemaker; Z95.5 Presence of coronary angioplasty implant and graft; Z87.891 Personal history of nicotine dependence; Z91.81 History of falling; Y93.89 Activity, other specified; Y92.89 Other specified places as the place of occurrence of the external cause; Y99.8 Other external cause status; Z98.41 Cataract extraction status, right eye; Z98.42 Cataract extraction status, left eye
CPT/HCPCS: 10112; 27000

== ENCOUNTER 2020-06-03 09:02 | Inpatient (IN) | payer OTHER ==
[~2020-06-03 09:02] MED LIST changes: +ACETAMINOPHEN325 M1 PO; +HUMALOG100 UNIT/1 SUBQ; +NEURONTIN 400400 M1 PO
[2020-06-03] MEDS ORDERED: PULMICORT0.5 MG/22 INH (09:10)
[2020-06-03] MEDS ORDERED: MIRALAX17 GM PO (09:10)
[2020-06-03] MEDS ORDERED: IPRAT-ALBUT 0.5-3 ML INH (09:10)
[2020-06-03] MEDS ORDERED: NYAMYC15 GM TOP (09:10)
[2020-06-03] MEDS ORDERED: LACTULOSE20 GM/30 M PO (09:10)
[2020-06-03] MEDS ORDERED: IRON325 PO (09:10)
[2020-06-03] MEDS ORDERED: XALATAN2.5 ML OPHTHALMIC (09:10)
[2020-06-03] MEDS ORDERED: VITAMIN D21250 MC1 PO (09:10)
[2020-06-03] MEDS ORDERED: TYLENOL EXTRA500 MG PO (09:10)
[2020-06-03] MEDS ORDERED: COLACE100 MG PO (09:10)
[2020-06-03 22:30] VITALS: BP 110/59
--- NOTE | 2020-06-04 00:59 | NUR ---
PT ADMITTED INTO ROOM 435 FROM [facility]. PT IS ALERT TO SELF, PLACE AND TIME. HE IS EXTREMELY [place] COUPLED WITH SOME FORGETFULNESS/CONFUSION AND THIS MAKES IT DIFFICULT TO GET ANSWERS FROM HIM.ASSESSMENT COMPLETED. PT DOES NOT KEEP OXYGEN ON.HE FALLS ASLEEP ON AND OFF. INCONTINENT OF BLADDER .REDNESS NOTED TO GROIN AREA AND A SMALL DECUB WOUND NOTED-PICS WILL BE TAKEN. HEELS ARE OKAY. PT IS ON A FERNANDA. LEFT HIP WITH DRSG INTACT.PT HAS A CONGESTED INSURANCE TERRITORY MANAGER COUGH.ORAL CARE PROVIDED-PT IS NPO FOR ASPIRATION RISK.HE IS AFEBRILE. IV FLUIDS AND ABTS INFUSING VIA GENE PICC.PT APPEARS TO BE IN NO DISTRESS AT THIS TIME.SCDS ARE IN PLACE. CALL LIGHT WITHIN REACH. FALL PREC IN PLACE.WILL CONTINUE WITH POC TILL EOS.
[2020-06-04 03:35] VITALS: BP 119/64
[2020-06-04 04:57] LABS: CALCIUM 8.9 mg/dL (8.5-10.1); CREATININE 2.2 mg/dL (0.7-1.3); MAGNESIUM 1.9 mg/dL (1.8-2.4); POTASSIUM 4.9 mmol/L (3.5-5.1)
[2020-06-04 04:58] LABS: ABSOLUTE NEUTROPHILS 8.4 thou/uL (1.4-8.2); BASOPHILS 0.5 % (0.0-2.0); EOSINOPHILS 0.2 % (0.0-3.0); HEMATOCRIT 25.2 % (42.0-52.0); LYMPHOCYTES 3.6 % (24.0-44.0); MCH 31.6 pg (26.0-34.0); MCHC 31.7 g/dL (28.0-37.0); MCV 99.4 fL (80.0-100.0); MONOCYTES 1.5 % (1.0-8.0); PLATELET COUNT 199 thou/uL (150-400); POLYS 94.2 % (36.0-66.0); RBC 2.53 mil/uL (4.50-6.00); RDW 18.5 % (10.5-14.5); WBC 8.9 thou/uL (4.0-11.0)
[2020-06-04 08:53] VITALS: BP 120/65
--- NOTE | 2020-06-04 10:51 | NUR ---
WOUND CONSULT; THE PATIENT IS MINIMALLY CONFUSED. WITH THE ASSISTANCE OF OTHER STAFF TRANSFERRED THE PATIENT FROM CHAIR TO BED WITH A GAIT BELT. THE PATIENT IS WEAK. THE PATIENT HAS A WOUND TO THE COCCYX WITH SCARRING. THE WOUND AGE IS NOT KNOWN LIKLY MONTHS. A SMAL AREA 2.0 X 2.0 X 0.5 NO DRAINAGE SEEN. CONSIDERING THE LOCATION ZGUARD WOULD BE MOST APPROPRIATE AT THIS TIME. RECOMMENDATIONS; ZGUARD CREAM TO COCCYX TID/PRN DISCUSSED WITH BESSIE
--- NOTE | 2020-06-04 12:13 | NUR ---
Assumed care of pt at 0700. Pt alert but forgetful. Incontinent of b&b. RA. Denies pain. IVF and IV antibiotics infusing. Pt had a swallow study and is not on pureed diet, henoy thick fluids with a spoon, and needs to be supervised with all meals. Fall precautions in place. Will continue to monitor.
--- NOTE | 2020-06-04 12:51 | NUR ---
ASSESSMENT: CM REVIEWED CHART AND SPOKE WITH PATIENT. PT IS VERY HARD OF HEARING. PT WAS ADMITTED FROM ACUTE REHAB DUE TO BEING LETHARGIC, UTI, INCREASED AMMONIA, AND CONCERNS FOR ASPIRATION. PT HAD SWALLOW STUDY DONE TODAY. PRIOR TO HOSPITALIZATION AND STAY ON 5N PATIENT LIVES AT HOME WITH HIS AND SON. PT HAS ABOUT 3 STEPS TO ENTER THE HOME AND ABOUT 18 STEPS WITH HANDRAILS TO HIS BEDROOM. PT HAS A WALKER AT HOME, GRAB BAR, AND SHOWER CHAIR. PT HAS CPAP AT HOME. PT IS HOPEFUL HE WILL BE ABLE TO RETURN TO ACUTE REHAB ONCE MEDICALLY STABLE TO DO SO. CM ATTEMPTED TO REACH PATIENTS BUT SON BISHOP ANSWERED AND SHOULD BE AT THE HOSPITAL SOON. CM WILL CONTINUE TO FOLLOW TO ASSIST NEEDED.
[2020-06-04 15:40] VITALS: BP 118/53
[2020-06-04 19:04] VITALS: BP 127/70
--- NOTE | 2020-06-05 03:02 | NUR ---
PT WAS OBSERVED LYING ON HIS BED WATCHING TV AT THE START OF SHIFT.PT DENIED PAIN/N/V.PT CONT ON IVF AND IV ABX. ZGUARD TO HIS COCCYX.PT CONFUSED/FORGETFUL AND IMPULSIVE AT HS.PT REORIENTED SEVERAL TIMES. PT HAS SLEPT OFF AND ON SO FAR.CALL LIGHT WITHIN REACH.
[2020-06-05 04:47] VITALS: BP 130/70
[2020-06-05 05:53] LABS: HEMATOCRIT 26.9 % (42.0-52.0); HEMOGLOBIN 8.2 gm/dL (14.0-18.0); MCH 30.3 pg (26.0-34.0); MCHC 30.3 g/dL (28.0-37.0); RBC 2.69 mil/uL (4.50-6.00); RDW 18.4 % (10.5-14.5); WBC 11.1 thou/uL (4.0-11.0)
[2020-06-05 06:25] LABS: CALCIUM 8.3 mg/dL (8.5-10.1); CREATININE 2.5 mg/dL (0.7-1.3); POTASSIUM 4.6 mmol/L (3.5-5.1)
[2020-06-05 07:40] VITALS: BP 153/85
--- NOTE | 2020-06-05 10:42 | NUR ---
Assumed care of pt at 0700. Pt aler but confused. Up to the chair with 1 assist, gait-blet and walker. IVF infusing. Denies pain. All meals with supervision. Fall precautions in place. Will continue to monitor.
--- NOTE | 2020-06-05 15:20 | NUR ---
ON-GOING ASSESSMENT: CM REVIEWED CHART. CM SPOKE WITH [facility] WHO REPORTS THEY PLAN ON ACCEPTING PATIENT BACK TO [facility] ONCE MEDICALLY STABLE. ATTENDING STATING PT WILL LIKELY BE HERE THROUGH THE WEEKEND AND POSSIBLE DISCHARGE TO [facility] MONDAY. CM WILL CONTINUE TO FOLLOW TO ASSIST NEEDED. PT WILL NEED A COVID TEST COMPLETED 24HRS PRIOR TO GOING TO [facility].
[2020-06-05 15:27] LABS: URINE BILIRUBIN NEGATIVE (Negative); URINE BLOOD NEGATIVE (Negative); URINE CLARITY CLEAR; URINE COLOR YELLOW; URINE GLUCOSE-RANDOM* 1+ (Negative); URINE KETONES TRACE (Negative); URINE LEUKOCYTES NEGATIVE (Negative); URINE NITRITE NEGATIVE (Negative); URINE PROTEIN (DIPSTICK) TRACE (Negative); URINE SPECIFIC GRAVITY 1.025 (1.005-1.035)
[2020-06-05 15:50] VITALS: BP 135/73
[2020-06-05 15:54] LABS: PROT/CREAT RATIO 0.6; URINE CREATININE-RANDOM* 82.1 mg/dL; URINE PROTEIN-RANDOM* 51.9 mg/dL (<11.9)
[2020-06-05 19:48] VITALS: BP 141/73
--- NOTE | 2020-06-05 23:49 | NUR ---
PT WAS IPU;MAAME AT THE TART OF SHIFT.PT WAS OBSERVED GETTING OUT OF BED SEVERAL TIMES,PT WAS ENCOURAGED TO STAY IN BED.PT SLEPT OFF AND ON YESTERDAY NIGHT,REQUESTED FOR SOMETHING TO HELP HIM SLEEP,GARBAGE TRUCK DRIVER ON DUTY NOTIFIED,ORDER NOTED AND CARRIED OUT.PT ASLEEP IN HIS ROOM AT THIS TIME.DRSG TO HIS L HIP CHANGED.ZGAURD TO HIS SACRUM.CALL LIGHT WITHIN REACH.
[2020-06-06 05:30] VITALS: BP 134/78
[2020-06-06 06:02] LABS: ALBUMIN 2.7 g/dL (3.4-5.0); CALCIUM 8.6 mg/dL (8.5-10.1); PHOSPHORUS 3.1 mg/dL (2.6-4.7); POTASSIUM 4.1 mmol/L (3.5-5.1)
[2020-06-06 07:35] VITALS: BP 135/72
--- NOTE | 2020-06-06 11:09 | NUR ---
ASSUMED CARE OF PATIENT HE IS ALERT ATE BREAKFAST TRIED TO STICK WITH SWALLOWING TWICE DRINKS THICKENED LIQUIDS BUT DOESNT LIKE. PT UP IN BEDSIDE CHAIR. SPOKE WITH UPDATED HER ON HIS PROGRESS, WILL COVID TEST HIM TOMMOROW AND HE CAN BE MOVED BACK TO Monday. DR PETERSEN INCREASED FLUIDS AND ORDERED RENAL PANEL LAB.
[2020-06-06 16:05] VITALS: BP 123/60
[2020-06-06 19:52] VITALS: BP 116/57
--- NOTE | 2020-06-07 03:42 | NUR ---
PT HAD TWO BM THIS SHIFT.PT C/O PAIN,MANAGED WITH MED.OPTI FOAM TO HIS SACRAL WOUND.PT ON 2L/NC SINCE HE IS REF CPAP AT HS.SCD TO BLE.DRSG TO HIS L HIP CHANGED C/D/I.FALL AND SWALLOW PRECAUTIONS MAINTAINED.CALL LIGHT WITHIN REACH.
[2020-06-07 04:49] LABS: ALBUMIN 2.6 g/dL (3.4-5.0); CALCIUM 8.3 mg/dL (8.5-10.1); CREATININE 1.6 mg/dL (0.7-1.3); PHOSPHORUS 2.5 mg/dL (2.6-4.7); POTASSIUM 4.1 mmol/L (3.5-5.1)
--- NOTE | 2020-06-07 07:55 | NUR ---
COVID TEST DONE LEFT NARE AT 0728 LAB ON UNIT TOOK SPECIMEN
[2020-06-07 07:58] VITALS: BP 125/73
--- NOTE | 2020-06-07 14:23 | NUR ---
COVID 19 TEST RESULT BACK IS NEGATIVE RESULTS IN COMPUTER AND ON CHART.
[2020-06-07 16:55] VITALS: BP 122/68
--- NOTE | 2020-06-07 19:24 | NUR ---
PATIENT HAS REMAINED IN BED WATCHING TV TURNS SIDE TO SIDE.
[2020-06-07 19:54] VITALS: BP 146/68
[2020-06-08 03:42] VITALS: BP 137/77
--- NOTE | 2020-06-08 04:00 | NUR ---
ASSUMED PT CARE AT 1915 HRS. PT OBSERVED WATCHING THE [employer] GAME. PT THEN HAD EPISODE OF VOMITING X 2. HE REPORTED FEELING MOMENTARILY DIZZY, WHICH RESOLVED. VITALS TAKEN AND STABLE.ZOFRAN GIVEN WITH RELIEF.REPOSITIONING PROVIDED. PT VOIDS PER URINAL, BUT GETS STRESS INCONTINENCE. DOES NOT KEEP OXYGEN ON. CALL LIGHT WITHIN REACH.
--- NOTE | 2020-06-08 09:55 | NUR ---
DISCHARGE NOTE: NANCY reviewed chart and spoke with patient account liaison, who states they are able to accept pt today. Pt had negative COVID test yesterday. NANCY spoke with pt's via phone to discuss discharge plan. Pt's family are all agreeable with pt returning to 5 for acute rehab. Pt's is aware that pt will discharge to 5 today. SW notified attending physician to request discharge orders/summary. SW updated patient account liaison. NANCY is following to assist as needed.
[2020-06-08] MEDS ORDERED: LEVOFLOXACIN500 MG PO (10:47)
== END 2020-06-08 13:44 | DRG 871 ==
LOC: 4S 09:02
PROVIDERS: Hospitalist; Internal Medicine Nephrology; Nurse Practitioner; ADMIT Hospitalist; ATTEND Hospitalist
DX: A41.9 Sepsis, unspecified organism (principal); J96.01 Acute respiratory failure with hypoxia; J69.0 Pneumonitis due to inhalation of food and vomit; N17.0 Acute kidney failure with tubular necrosis; N39.0 Urinary tract infection, site not specified; G93.40 Encephalopathy, unspecified; I13.0 Hypertensive heart and chronic kidney disease with heart failure and stage 1 through stage 4 chronic kidney disease, or unspecified chronic kidney disease; D62 Acute posthemorrhagic anemia; E87.0 Hyperosmolality and hypernatremia; Z20.822 Contact with and (suspected) exposure to COVID-19; I25.10 Atherosclerotic heart disease of native coronary artery without angina pectoris; G25.81 Restless legs syndrome; I48.91 Unspecified atrial fibrillation; I50.9 Heart failure, unspecified; M10.9 Gout, unspecified; E11.22 Type 2 diabetes mellitus with diabetic chronic kidney disease; R21 Rash and other nonspecific skin eruption; E55.9 Vitamin D deficiency, unspecified; E53.8 Deficiency of other specified B group vitamins; I49.5 Sick sinus syndrome; G47.30 Sleep apnea, unspecified; M19.90 Unspecified osteoarthritis, unspecified site; R13.10 Dysphagia, unspecified; B96.5 Pseudomonas (aeruginosa) (mallei) (pseudomallei) as the cause of diseases classified elsewhere; Z95.5 Presence of coronary angioplasty implant and graft; Z95.0 Presence of cardiac pacemaker; Z91.81 History of falling; Z88.8 Allergy status to other drugs, medicaments and biological substances; Z91.010 Allergy to peanuts; Z90.49 Acquired absence of other specified parts of digestive tract; Z98.41 Cataract extraction status, right eye; Z98.42 Cataract extraction status, left eye
CPT/HCPCS: 10102

== ENCOUNTER 2020-06-08 12:21 | Inpatient (IN) | payer OTHER ==
[~2020-06-08] VITALS: Ht 175.3 cm; Wt 87.2 kg
[~2020-06-08 12:21] MED LIST changes: +IPRAT-ALBUT 0.5-3 ML INH; +IRON325 PO; +LACTULOSE20 GM/30 M PO; +LEVOFLOXACIN500 MG PO; +NYAMYC15 GM TOP; +PULMICORT0.5 MG/22 INH; +TYLENOL EXTRA500 MG PO; +VITAMIN D21250 MC1 PO; +XALATAN2.5 ML OPHTHALMIC
[2020-06-08 14:21] VITALS: BP 142/63
--- NOTE | 2020-06-08 15:30 | NUR ---
PT ARRIVED THIS AFTERNOON TO UNIT, AND WAS ASSISTED WITH 2 PERSON ASSIST TO THE BED, C/O COCCYX PAIN AND ON INSPECTION, RN FOUND THAT PT HAS OPEN PRESSURE AREA AT COCCYX, WELL A DEEP PURPLE NON-BLANCHING AREA AT HIS LOWER BACK SACRAL AREA. AREAS WERE PHOTOGRAPHED AND MEASURED, THEN REDRESSED. INCISION IS INTACT WITH NO DRAINAGE. DRESSING CHANGED WITH XEROFORM GAUZE AND SURGICAL GAUZE/TAPE DRESSING. ELIANE ARE INTACT. PT RATES PAIN TOLERABLE AND DID NOT REQUEST ADDITIONAL PAIN MEDS. HE HAS A RASH AT THE GROIN, AND HAS NYSTATIN FOR THIS. PT VOIDED CONTINENTLY IN THE URINAL THIS AFTERNOON, BUT HAS NOTED URGENCY. HE IS RESTING IN BED WITH AT BEDSIDE. HE IS VERY [place], AND HAS A LEFT HEARING AID. IS GETTING THE RT HEARING AID REPAIRED AND WILL BRING IT IN WHEN IT IS DONE.
[2020-06-08 19:10] VITALS: BP 120/57
--- NOTE | 2020-06-08 23:59 | NUR ---
PATIENT HAS BEEN RESTING IN BED. DRESSING ON LEFT HIP DRY AND INTACT. ELIANE IN PLACE UNDER DRESSING. PATIENT IS A/0X4. HE IS [place]. PATIENT IS ON HONEY THICK LIQUIDS. MEDS GIVEN CRUSHED IN PUDDING. PATIENT VOIDS USING THE URINAL. PATIENT HAS MIDLINE IV SITE IN LEFT UPPER ARM. INTACT AND TO BE CHANGED TOMORROW. PATIENT'S 02 SAT HAS BEEN RUNNING 95 TO 98% TONIGHT ON ROOM AIR. HIS ACCUCHECK AT HS WAS 112 AND 4U LISPRO GIVEN PER SS. PT DENIES PAIN. NO COUGH NOTED TONIGHT. BED IN LOW POSITION AND BED ALARM IS ON. CONTINUING TO MONITOR.
[2020-06-09 05:53] LABS: HEMATOCRIT 26.4 % (42.0-52.0); HEMOGLOBIN 8.1 gm/dL (14.0-18.0); MCH 30.4 pg (26.0-34.0); MCHC 30.8 g/dL (28.0-37.0); MCV 98.6 fL (80.0-100.0); RBC 2.67 mil/uL (4.50-6.00); RDW 17.2 % (10.5-14.5); WBC 6.9 thou/uL (4.0-11.0)
[2020-06-09 06:12] LABS: CALCIUM 9.2 mg/dL (8.5-10.1); CREATININE 1.6 mg/dL (0.7-1.3); POTASSIUM 4.8 mmol/L (3.5-5.1)
--- NOTE | 2020-06-09 08:21 | NUR ---
DRESSING ON LEFT ARM MIDLING IS SOILED. CALL HAS BEEN PLACED TO IV TEAM FOR DRESSING CHANGE, AND CENTRAL LINE DRESSING CHANGE KIT HAS BEEN PLACED AT THE BEDSIDE.
[2020-06-09 08:32] VITALS: BP 123/69
--- NOTE | 2020-06-09 18:11 | NUR ---
Case opened to follow for dc planning. The pt was readmitted to acute rehab. Prior to his first hospital stay with hip arthroplasty on 05-25-20, the pt was living at home with his and adult son. He has 3 steps to enter the home and can navigate the home without using the steps. The home has a stair glide in place. He has a rwalker, cpap, shower chair, and grab bars. His works from home and his son is also available to help as needed. His pcp is Dr. Errol Shipley. He has a past hx of [facility] and a SNF stay. His goal is to return home with family and hh at me. Team conference held today and pt is being reevaluated by PT/OT and . ST is recommending a repeat video swallow and hoping he will be able to upgrade his diet. His bun/cre are elev and being monitored. RN trying to push fluids but may need IVF. RN to call ortho to dc his michelle. Reteam next Monday with LJ to follow pending his progress.
--- NOTE | 2020-06-09 18:35 | NUR ---
Alert and orientated X 3. Interactive with staff. Calm, compliant and cooperative. Breath sounds clear. Reg HR auscultated. Color pink with brisk capillary refill and palpable peripheral pulses. Dark yellow urine per urinal. Active bowel sounds over soft, rounded abdomen. Reddness and excoriation in inguinal folds, cleaned and nystatin applied by OT. Up to WC. Took PO intake without diff with spoon, honey thick. Currently in WC sleeping, on phone with .
[2020-06-09 19:20] VITALS: BP 99/58
--- NOTE | 2020-06-10 02:33 | NUR ---
ASSESSED AT START OF SHIFT. PT UP WITH ASSIST TO THE BATHROOM. BSG CHECKED 64, APPLE JUICE GIVEN AND BSG RECHECKED 75. MIRALAX GIVEN NO BM THIS SHIFT. NIGHT TIME MEDS GIVEN. FALL PREC IN PLACE AND CALL LIGHT AT REACH WILL CONT TO MONITOR.
[2020-06-10 07:20] VITALS: BP 110/60
--- NOTE | 2020-06-10 14:08 | NUR ---
RN ASSUMED PT'S CARE AT 0700AM, PT IS A&OX3, PT CAN FOLLOW COMMANDS, PT GETS UP WITH ASSIST / WAKLER TO BATH ROOM, PT NEEDS MONITORING MEALS , PT 'S WOUND CARE HAS DONE, PT DENIES PAIN AT THIS TIME.
--- NOTE | 2020-06-10 14:22 | NUR ---
wound care f/u; THE COCCYX WOUND IS CLINICALLY IMPROVED. NO S/S OF INFECTION. THE PATIENT IS INCONTINET OF URINE. I NOTICED A BRUISE TO THE SACRUM. INTACT SKIN. RECOMMENDATIONS; -PAINT THE SACRUM AREA WITH BETADINE DAILY, ANDERSON COVER WITH A BORDER FOAM IF A WOUND DEVELOPS CHANGE M/W/F PRN. DISCUSSED THE AUTOMOTIVE UPHOLSTERER/RN WHO STATED THE AREA WAS PREVIOUSLY IDENTIFIED AND PICTURED.
[2020-06-10 14:25] LABS: ALBUMIN 2.7 g/dL (3.4-5.0); CALCIUM 8.7 mg/dL (8.5-10.1); CREATININE 1.6 mg/dL (0.7-1.3); POTASSIUM 4.4 mmol/L (3.5-5.1); TOTAL BILIRUBIN 0.9 mg/dL (0.2-1.0); TOTAL PROTEIN 5.9 g/dL (6.4-8.2)
[2020-06-10 19:35] VITALS: BP 108/47
--- NOTE | 2020-06-10 23:24 | NUR ---
06-10-20 CARE TRANSFERRED 1914. PT AAOX3, VSS, RR EVEN AND NONLABORED ON RA. LEFT MEDLINE CLEAN, DRY. PT DENIES PAIN. PT HAS BEEN CLAM AND COOPERATIVE DURING Q2. ZERO S/S OF ACUTE DISTRESS, PT WILL CONTINUE TO BE MONITOR.
--- NOTE | 2020-06-11 11:13 | NUR ---
DENIES COMPLAINTS OF PAIN/DISCOMFORT DURING AM ASSESSMENT-VERBALIZES FEELIUNG FRUSTRATED REGARDING CURRENT DIET/PUREED/THICKENED LIQUIDS-"IT'S ALL TERRIBLE" LEFT BRACHIEL MIDLINE DRESSING INTACT -SITE WITHOUT REDNESS-SWELLING OR TENDERNESS TO SITE. TRANSFERS WITH SBA X1-TOLERATES WELL. BS 88 AC BREAKFAST-INCONTINENT SMALL AMOUNT URINE-COOPERATIVE WITH INCONTINENT CARE-COCYX SLIGHTLY REDDENED NO BREAKDOWN NOTED=-BARRIER CREAM APPLIED
[2020-06-11 19:22] VITALS: BP 130/64
--- NOTE | 2020-06-12 02:09 | NUR ---
PT CARE ASSUMED WITH PT SITTING ON THE CHAIR WATCHING TV.PT ASSIST TO THE BATHROOM X1 AND THEN TO BED.PT IS A/O X4.PT MEDS CRUSHED IN APPLE SAUCE AND ON HONEY THICK FLUIDS.PT DENIED PAIN ,NAUSEA AND VOMITING.IV ACCESS LT UA MIDLINE SL.WILL CONTINUE TO MONITOR POC
[2020-06-12 08:00] VITALS: BP 128/67
--- NOTE | 2020-06-12 15:55 | NUR ---
PT ALERT AND ORIENTED TIMES FOUR VSS. SCHEDULED PAIN MEDICATION CONTOLLING PAIN WELL. PT TOLERATES MEDS AND MEALS. PT UP WITH ONE ASSIST AND WORKED WELL WITH PT/OT TODAY. PT AT BEDSIDE THIS MORNING. PT PROGRESSING TOWRADS POC GOALS.
[2020-06-12 20:00] VITALS: BP 125/76
--- NOTE | 2020-06-13 02:02 | NUR ---
PT ASSESSMENT COMPLETED AND VSS. MEDS GIVEN ORDERED AND WELL TOLERATED. VOIDING MODERATE AMOUNT PER URINAL AND UP TO THE BATHROOM WELL. FALL PRECAUTIONS IN PLACE. PT PULLING HIMSELF UP IN BED. PT USED WHEELCHAIR TO GO THE THE BATHROOM WITH A PIVOT ASST TO THE TOILET. SLEEPING ON AND OFF. GROIN RED. FUNGAL POWDER APPLIED. ASST WITH REPOSITION. ZGUARD APPLIED TO SACRAL WOUND. PT TURNED ON SIDE AND BRIEF OFF TO HELP HEAL WOUND AND FUNAL GROIN. WILL CONTINUE TO MONITOR FREQUENTLY.
[2020-06-13 06:15] LABS: ABSOLUTE NEUTROPHILS 4.7 thou/uL (1.4-8.2); BASOPHILS 0.7 % (0.0-2.0); EOSINOPHILS 3.8 % (0.0-3.0); HEMATOCRIT 24.6 % (42.0-52.0); HEMOGLOBIN 7.9 gm/dL (14.0-18.0); LYMPHOCYTES 15.3 % (24.0-44.0); MCH 30.9 pg (26.0-34.0); MCV 96.5 fL (80.0-100.0); MONOCYTES 10.3 % (1.0-8.0); PLATELET COUNT 122 thou/uL (150-400); POLYS 69.9 % (36.0-66.0); RBC 2.55 mil/uL (4.50-6.00); WBC 6.7 thou/uL (4.0-11.0)
[2020-06-13 06:28] LABS: CALCIUM 8.6 mg/dL (8.5-10.1); CREATININE 1.5 mg/dL (0.7-1.3); POTASSIUM 4.5 mmol/L (3.5-5.1)
[2020-06-13 08:00] VITALS: BP 136/73
--- NOTE | 2020-06-13 10:18 | NUR ---
ASSUMED CARE AT 0700 THIS MORNING. PT. UP SITTING ON THE SIDE OF THE BED. THERAPIES BY HIS SIDE. HIS LOWER LEGS BELOW THE KNEES ARE REDDENED AND WARM. THERAPIES ROMEL THIS RN'S ATTENTION TO THIS. WILL ASK IF AN ABO IS NEEDED FOR REDDENED LEGS. LEGS ARE MILDLY WARM AT THIS WRITING. HE IS [place], HAVING TO SPEAK LOUDLY TO HIM. HE IS COOPERATIVE WITH THERAPIES. HE DID NOT WANT HIS MEDICATIONS CRUSHED. HE WAS GIVEN HIS MEDICATIONS WHOLE. HE TOOK THEM WITH THICKENED LIQUID. NO CHOAKING NOTED.
[2020-06-13 20:00] VITALS: BP 132/74
--- NOTE | 2020-06-14 04:05 | NUR ---
assumed care approx 1899 evening 06/13. pt hard of hearing. pt assist with urinal standing up. pt talking in his sleep frequently tonight however pt seems to be sleeping well. pt incontinent of bm, assisted with changing and cleaning. bed alarm on and call light in reach. will continue to monitor.
[2020-06-14 07:15] VITALS: BP 141/75
--- NOTE | 2020-06-14 08:27 | NUR ---
ASSUMED CARE AT 0700. PATIENT IS ALERT AND ORIENTED X4. PATIENT GOLDSMITH'S, SHOE CASER ARE EQUAL. PATIENT TALKS TO HIMSELF. PATIENT IS VERY [place]. LUNGS ARE CLEAR AND DEMINISNED. ABD IS SOFT WITH BSX4. PATIENT VOIDS PER URINAL, BUT IS IMPULSIVE. PATIENT HAS MIDLINE ON THE LEFT THAT FLUSHES WITHOUT PROBLEMS. ELIANE OUT OF LEFT HIP. PATIENT IS TURNED Q 2 HOURS. PATIENT HAS L.E. EDEMA. PATIENT CONTINUES ON PO ABT WITHOUT ADVERSE AFFECTS. FALL AND SAFETY PROTOCOLS IN PLACE. DENIES PAIN. CONTINUES TO PROGRESS TOWARDS D/C GOALS. WILL CONTINUE TO MONITER.
[2020-06-14 19:06] VITALS: BP 129/71
--- NOTE | 2020-06-15 02:24 | NUR ---
assumed care approx 1900 evening 06/14. pt alert and oriented at change of shift. pt frustrated with not being able to eat regular food due to swallowing precautions. emotional support given to pt and pt took meds without difficulty in honey thick juice. pt talks in his sleep majority of night. pt incontinent of bm and assisted with changing pad. bed alarm on and call light in reach. will continue to monitor.
[2020-06-15 05:50] LABS: HEMATOCRIT 27.2 % (42.0-52.0); HEMOGLOBIN 8.5 gm/dL (14.0-18.0); MCH 30.4 pg (26.0-34.0); MCHC 31.4 g/dL (28.0-37.0); MCV 96.7 fL (80.0-100.0); RBC 2.81 mil/uL (4.50-6.00); RDW 17.8 % (10.5-14.5)
[2020-06-15 06:11] LABS: CALCIUM 8.8 mg/dL (8.5-10.1); CREATININE 1.8 mg/dL (0.7-1.3); MAGNESIUM 1.9 mg/dL (1.8-2.4); POTASSIUM 3.8 mmol/L (3.5-5.1)
[2020-06-15 07:57] VITALS: BP 127/65
--- NOTE | 2020-06-15 13:32 | NUR ---
PT A&OX4, VSS, DENIES PAIN. PATIENT PARTICIPATED IN THERAPIES. MEDS GIVEN CRUSHED IN APPLESAUSE. WOUND OPEN TO AIR LEFT HIP. ASSESSMENT HAS BEEN COMPLETED. PATIENT TOLERATING DIET. PATIENT HAS MIDLINE WITH FLUSHES. NO SIGNS OF DISTRESS. WILL CONTINUE TO MONITOR.
--- NOTE | 2020-06-15 14:08 | NUR ---
WOUND CARE F/U; THE PATIENT IS CONTINUALLY UP IN HIS WHEELCHARE WITH NO PRESSURE REDUCTION SURFACE. THE WOUND HAS IS STABLE IN THAT IT IS NOT WORSE OR IMPROVE. THE WOUNDBED IS PALE. I SPENT 15 MINUTUES EDUCATING THE PATIENT ON PRESSURE REDUCTION, DIET AND THE HEALING PROCESS WELL PRESSURE ETIOLOGY. THE PATIENT ACKNOWLEGED UNDERSTANDING BUT I AM NOT CONVINCED HE HAS. RECOMMENDATIONS; CONTINUE CURRENT POC DISCUSSED WITH STAFF.
[2020-06-15 19:27] VITALS: BP 111/53
--- NOTE | 2020-06-16 04:36 | NUR ---
RECIEVED CARE OF THIS PATIENT AT 1900. PATIENT ALERT AND ORIENTED X4. GETS UP AEITHASSIST OF ONE, GAIT BELT AND WALKER. KIM LOWER EXT EDEMATOUS. WOUND ON COCCYX. VERY [place]. WEARS HEARING AIDS. DENIES PAIN. SLEPT MOST OF NIGHT.
[2020-06-16 08:21] VITALS: BP 117/59
--- NOTE | 2020-06-16 11:47 | NUR ---
ASSUMED CARE AT 0700 THIS MORNING. PT. IN BED, BUT WANTS TO USE THE RESTROOM. GAIT BELT AND WALKER UTILIZED TO TRANSPORT PT. TO BATHROOM. HE AMBULATES WELL. HE SAT IN W/C THIS MORNING FOR BREAKFAST. HE IS WORKING WITH THERAPIES WELL. HE TOOK HIS MEDICATIONS WITHOUT PROBLEMS NOTED WITH THICKENED LIQUIDS.
--- NOTE | 2020-06-16 12:42 | NUR ---
team meet, reccomendation: deit mech soft with honey thick liquids. family will need teaching prior to dc. video swallow on before dc. 06/19 dc with hh ( nursing, pt, ot, and st). therapy tranning with prior to dc home.
[2020-06-16 19:07] VITALS: BP 134/71
--- NOTE | 2020-06-17 00:56 | NUR ---
ASSESSED AT START OF SHIFT. PT A&OX4 MOHEGAN. LFT UA MIDLINE INTACT AND SL. NIGHT TIME MEDS GIVEN IN HONEY THICK LIQUID. NYASTATIN POWDER APPLIED ON ABDOMINAL FOLDS. SILVADINE CREAM AND ZYGUARD APPLIED ON PT COCCYX REGION. PT REPOSITIONED FOR COMFORT. URINAL BY BEDSIDE. FALL PREC IN PLACE AND WILL CONT TO MONITOR.
[2020-06-17 07:50] VITALS: BP 108/49
--- NOTE | 2020-06-17 14:10 | NUR ---
FAXED REFERRAL TO [facility] SPOKE WITH JACQUI IN INTAKE SHE CAN ACCEPT AT DISCHARGE 06/19.
[2020-06-17 14:11] VITALS: BP 108/49
--- NOTE | 2020-06-17 16:16 | NUR ---
PT ALERT AND ORIENTED TIMES THREE. VSS. SCHEDULED PAIN MEDICATIONS CONTROLLING PAIN WELL. PT TOLERATES MEDS AND MEALS. PT WORKED WELL WITH PT/OT TODAY, PT UP SITTING IN THE CHAIR FOR MOST OF THE DAY. PT PROGRESSING TOWRADS POC GOALS.
[2020-06-17 19:26] VITALS: BP 123/66
--- NOTE | 2020-06-18 03:55 | NUR ---
06-17-20 CARE TRANSFERRED 1899 OBSERVED PT SUPINE IN BED RESTING WITH EYES CLOSED. DURING NURSING ASSESSMENT PT WAS EASILY AWAKEN TO TOUCH R/T [place]. PT AAOX4, VSS, RR EVEN AND NONLABORD ON RA. PT DENIES PAIN. PT PRESENTS PLEASANT, CALM AND COOPERATIVE. LATER NOTED PT COUGHING AND AND PT WAS REPOSITION TO HIGH FOLWERS POSITION, THEN PT REQUESTED REPOSITION AND MOVED TO SITTING ON SIDE OF BED, PT COUGH EFFORT GOOD, NON-PRODUCTIVE. LUNGS SOUNDS CHANGED FROM CLEAR AND DIMINISHED TO COARSE AND DIMINISHED. PT 02 SAT 92% RA, BREATHING WAS LABORED AND RT WAS CONTACTED. UPON RT ASSESSMENT PT 02SAT 86% AND BREATHING TREATMENT STARTED, AFTER BREATHING TREATMENT PT O2 SAT RETURNED TO 94% WITH RT OX, THEN CHECK RN FINGER PULSE OX 94%. PT RR RETURNED TO EVEN AND NONLABORED ON RA. ROUNDING PT O2SAT 96% RA AND HAS STAYED STEADY. OF NOTE, PT HAS HAD TWO BM ONE INCONT AND ONE CONT. AND THREE VOIDS. PT WILL CONTINUE TO BE MONITOR.
[2020-06-18 08:00] VITALS: BP 134/72
[2020-06-18 14:24] LABS: CALCIUM 8.1 mg/dL (8.5-10.1); CREATININE 1.6 mg/dL (0.7-1.3); POTASSIUM 4.2 mmol/L (3.5-5.1)
--- NOTE | 2020-06-18 15:49 | NUR ---
assumed care of pt at 0700. pt alert and oriented, pleasant, extremely hard of hearing. complains of pain to hip. liquids upgraded to nectar. ear drops given per order. coccyx dressing changed per order. vitals stable. pt voicing no particular concerns at this time. wcm.
[2020-06-18] MEDS ORDERED: TYLENOL325 MG PO (16:01)
[2020-06-18] MEDS ORDERED: VITAMIN D350 MCG PO (16:01)
[2020-06-18] MEDS ORDERED: TORSEMIDE10 MG PO (16:01)
[2020-06-18] MEDS ORDERED: COLACE100 MG PO (16:01)
[2020-06-18] MEDS ORDERED: EAR DROPS15 ML OTIC (16:01)
[2020-06-18 19:25] VITALS: BP 134/76
--- NOTE | 2020-06-18 23:01 | NUR ---
PT ASSESSMENT COMPLETED AND VSS. MEDS GIVEN ORDERED AND WELL TOLERATED. ENCOURAGED SIP OF NECTOR THICK WATER. FALL RECAUTIONS IN PLACE. ASST WITH REPOSITION FOR COMFORT. MEDICATIONED CREAM APPLIED TO SACRAL WOUND. DSG ON SACRAL WOUND INTACT. ASST WITH REPOSITION FOR COMFORT USING PILLOWS. SLEEPING ON AND OFF. WILL CONTINUE TO MONITOR FREQUENTLY.
[2020-06-19 05:30] LABS: ABSOLUTE NEUTROPHILS 1.7 thou/uL (1.4-8.2); BASOPHILS 1.2 % (0.0-2.0); EOSINOPHILS 3.4 % (0.0-3.0); HEMATOCRIT 27.3 % (42.0-52.0); HEMOGLOBIN 8.7 gm/dL (14.0-18.0); MCH 30.4 pg (26.0-34.0); MCHC 31.9 g/dL (28.0-37.0); MCV 95.4 fL (80.0-100.0); MONOCYTES 9.2 % (1.0-8.0); PLATELET COUNT 91 thou/uL (150-400); POLYS 53.2 % (36.0-66.0); RBC 2.86 mil/uL (4.50-6.00); RDW 17.8 % (10.5-14.5); WBC 3.2 thou/uL (4.0-11.0)
[2020-06-19 06:00] LABS: CALCIUM 8.3 mg/dL (8.5-10.1); CREATININE 1.6 mg/dL (0.7-1.3); MAGNESIUM 1.7 mg/dL (1.8-2.4); POTASSIUM 3.8 mmol/L (3.5-5.1)
[2020-06-19 08:00] VITALS: BP 140/81
--- NOTE | 2020-06-19 11:43 | NUR ---
PATIENT IS ALERT, AWAKE, COOPERATIVE WITH CARE, CAN BE FORGETFUL AT TIMES. PATIENT IS [place], STAFF HAS TO SPEAK REAL LOUD FOR HIM TO HEAR. HE TOLERATED MORNING MEDICATION WELL. PATIENT IS EATING MEALS FAIRLY WELL. FREQUENTLY REQUESTING FOR THIN LIQUID, DOES NOT LIKE HONEY THICK VERY WELL. LUNGS WITH COARSE SOUND IN ALL LOBE PER AUSCULTATION. BS+X4, ABD SOFT, NON-TENDER TO TOUCH. SACRAL WOUND DRESSING CHANGED, CREAM APPLIED. ALL SAFETY PRECAUTIONS IN PLACE. NO SIGN OF ACUTE DISTRESS NOTED AT THIS TIME, CALL LIGHT IN REACH, WILL MONITOR FOR SAFETY.
--- NOTE | 2020-06-19 12:27 | NUR ---
PATIENT IS ALERT, AND ORIENTED 1-2, FORGETFUL, AND CONFUSED AT TIMES. PATIENT TOOK ALL MEDICATION WHOLE WITHOUT DIFFICULTY. SHE IS EATING MEALS, AND DRINKING FLUID FAIRLY WELL. LCTA, RESP EVEN/UNLABORED, NO SOA/CYANOSIS NOTED. BS+X4, ABD SOFT, NON-TENDER TO TOUCH. PATIENT REQUIRES ASSIST OF ONE STAFF TO TRANSFER. SHE DENIES HAVING PHYSICAL PAIN. NO SIGN OF ACUTE DISTRESS NOTED, CALL LIGHT IN REACH, WILL MONITOR FOR SAFETY.
--- NOTE | 2020-06-19 16:33 | H ---
[facility] [place] [address] HISTORY AND PHYSICAL Name: LUCRECIA MADRID Room #: 503-P ADM IN M.R.#: [id number] Admission: 06/08/20 Attend Phys: Amilcar Renteria MD Discharge: Date of : 39 Report #: [id number] THIS REPORT FOR: cc: Errol Shipley MD, John M. MD Smithson, David G. MD ~ DATE OF SERVICE: 06/08/2020 ADDENDUM HISTORY OF PRESENT ILLNESS: The patient was seen earlier today. Please see the documented history and physical. We sent him to acute care as he was having more and more problems with lethargy. Urine was positive for UTI and had an elevated ammonia level. There were concerns for aspiration. He failed his video swallow study and was placed on a pureed solid diet with honey thickened liquids with speech involvement. He also had worsening of his renal function with likely acute tubular necrosis. He was given IV fluids, placed on IV Merrem for the UTI. He is more alert, pleasant, felt to be ready for readmission for acute in-hospital inpatient rehabilitation. Please see the prior documentation as far as past medical history, social history, allergies, habits. MEDICATIONS: See the MAR. REVIEW OF SYSTEMS: See the 14-point system, which was reviewed. No chest pain, shortness of breath, or abdominal discomfort. PHYSICAL EXAMINATION: GENERAL: Pleasant, very hard of hearing 84-year-old white male. VITAL SIGNS: Vital signs are as documented temperature 36.8, pulse 69, respirations 16, and blood pressure 123/69. Pleasant affect. HEAD AND NECK: Normocephalic. NECK: No lymphadenopathy. HEENT: Otherwise appeared benign. CHEST: Some decreased breath sounds throughout. No rhonchi or crackles. He has a permanent pacemaker. CARDIAC: Heart rate appears controlled. ABDOMEN: Bowel sounds positive, nontender. GENITOURINARY AND RECTAL: Deferred. NEUROMUSCULOSKELETAL: He does have scattered ecchymoses of the upper extremities bilaterally. Lower extremities with no focal calf swelling. Left hip dressing appeared dry. Incision appeared to be intact. He has grossly intact sensation bilateral lower extremities. Sit to stand is mod assist and he is able to ambulate a short distance with a front-wheeled walker. He does have the significant memory deficits, but he is very cooperative. [address] [address] HISTORY AND PHYSICAL Name: LUCRECIA MADRID Room #: 503-P [facility] IN M.R.#: [id number] Admission: 06/08/20 Attend Phys: Amilcar Renteria MD Discharge: Date of : 37 Report #: [id number] ASSESSMENT: 1. Left femoral neck fracture, status post left hip hemiarthroplasty, 05/25/2020. Weightbearing as tolerated. 2. Urinary tract infection on antibiotics. 3. Acute renal insufficiency superimposed on chronic kidney disease with multifactorial acute tubular necrosis. 4. Aspiration/dysphagia, on modified diet. 5. Hypernatremia. 6. Acute blood loss anemia, postop. 7. Degenerative arthritis. 8. Diabetes mellitus type 2 with peripheral neuropathy. 9. Hypertension. 10. Atrial fibrillation, sick sinus syndrome, history of permanent pacemaker. 11. Chronic kidney disease. PLAN: Please see the full documentation and agree with the history and physical as noted. The patient has been admitted for acute in-hospital inpatient rehabilitation. Please see the patient's previous and current functional status. As far as risk of complications, he has multiple medical comorbidities as noted above. Initial plan of care involves the interdisciplinary acute inpatient rehabilitation program. Measurable functional goals would be for him to improve as far as transfers, mobility and ADLs, so he can hopefully return back to his prior living situation. Also to improve as far as cognition and swallowing issues. Prognosis is reasonably good with estimated length of stay probably at least 10 days. Potential barriers would include his multiple medical comorbidities and decreased functional status. The patient meets diagnostic criteria for an acute in-hospital inpatient rehabilitation stay. He meets the medical necessity criteria and he does have plans to go back to the home setting with his and son. Tolerance for therapies is reasonably good and he does have appropriate discharge goals back to the home setting. <ELECTRONICALLY SIGNED> By: Amilcar Renteria MD 06/19/20 1633 [id number] Amilcar Renteria MD /[facility]
--- NOTE | 2020-06-19 16:33 | PLAN ---
[facility] [place] [address] REHAB UNIT PLAN OF CARE Name: LUCRECIA MADRID Room #: 503-P ADM IN M.R.#: [id number] Admission: 06/08/20 Attend Phys: Amilcar Renteria MD Discharge: Date of : 37 Report #: [id number] THIS REPORT FOR: cc: Errol Shipley MD, John M. MD Smithson,Amilcar Barnes MD ~ DATE OF SERVICE: 06/10/2020 PROGRESS NOTE/OVERALL PLAN OF CARE SUBJECTIVE: The patient is screen was seen back today in followup. He is alert and interacting well today. Temperature 97.7, pulse 102, respirations 20, blood pressure 99/58. No focal calf swelling. He is sitting up, eating his breakfast. Transfers are mod assist with gait min assist 55 feet front-wheeled walker. Lower body dressing is max assist, upper body dressing is min assist. He is on a pureed diet with honey thickened liquids. ASSESSMENT: 1. Left femoral neck fracture, status post left hip hemiarthroplasty on 05/25/2020. Weightbearing as tolerated. 2. Urinary tract infection, on antibiotics. 3. Acute renal insufficiency superimposed on chronic kidney disease with multifactorial acute tubular necrosis. 4. Aspiration/dysphagia on modified diet. 5. Hypernatremia. 6. Acute blood loss anemia, postop. 7. Degenerative arthritis. 8. Type 2 diabetes mellitus, peripheral neuropathy. 9. Hypertension. 10. History of atrial fibrillation, sick sinus syndrome and permanent pacemaker. 11. Chronic kidney disease. PLAN: His hypernatremia has improved and his last sodium is 140. The overall plan of care is based on the preadmission screen, post-admission physician evaluation and information garnered from therapy assessments. 1. Estimated length of stay is probably at least 7-10 days, maybe up to 14 days, we will need to see how he does. 2. Medical prognosis is reasonably good. 3. Anticipated interventions includes the interdisciplinary acute inpatient rehabilitation program. 4. Anticipated functional outcomes would be for the patient to become modified independent with transfers, mobility and ADLs and improve as far as his swallowing and cognition, so that he can return back to the home setting. [facility] [address] [place] [address] REHAB UNIT PLAN OF CARE Name: LUCRECIA MADRID Room #: 503-P ADM IN M.R.#: [id number] Admission: 06/08/20 Attend Phys: Amilcar Renteria MD Discharge: Date of : 39 Report #: [id number] 5. Discharge destination would be back home with family. 6. Expected therapy by discipline includes PT, OT and speech 1 hour per day each five days a week throughout the duration of the acute inpatient rehabilitation stay. <ELECTRONICALLY SIGNED> By: Amilcar Renteria MD 06/19/20 1633 [id number] Amilcar Renteria MD /nt
--- NOTE | 2020-06-21 13:16 | HC ---
[facility] [place] [address] CONSULTATION Name: LUCRECIA MADRID Room #: 503-P [facility] IN M.R.#: [id number] Admission: 06/08/20 Attend Phys: Amilcar Renteria MD Discharge: 06/19/20 Date of : 37 Report #: [id number] THIS REPORT FOR: cc: Errol Shipley MD, John M. MD Deutch,Bonilla Kilpatrick. PhD ~ DATE OF SERVICE: 06/14/2020 NEUROBEHAVIORAL STATUS EXAM ATTENDING PHYSICIAN: Amilcar Renteria MD J2EE ARCHITECT: Bonilla Zhang, PhD CLINICAL PRESENTATION: The patient is an 84-year-old male admitted to [facility] for a comprehensive inpatient rehabilitation program to improve functional mobility, activities of daily living and self-care and mental status secondary to a left femoral neck fracture, status post left hip hemiarthroplasty. The patient was originally seen at the [facility] during earlier admission on 05/26/2020. His earlier neuropsychological assessment suggested an alcohol use disoder and neurocogtive disorder. Most recently, he was admitted to the [facility] with sepsis, acute hypoxemic respiratory failure, acute encephalopathy, acute on chronic renal failure, status post left hip hemiarthroplasty, UTI, diabetes, hypertension and acute blood loss anemia. The patient also has coronary artery disease and is status post stent placement. His diagnoses on admission to the rehabilitation was left femoral neck fracture, status post left hemiarthroplasty on 05/25/2020, UTI, acute renal insufficiency superimposed on chronic kidney disease with multifactorial acute tubular necrosis, aspiration, dysphagia, hypernatremia, acute blood loss anemia, degenerative arthritis, hypertension, diabetes mellitus type 2 with peripheral neuropathy, atrial fibrillation and chronic kidney disease. A complete description of his medical condition and history can be found in his medical record. Neuropsychological assessment was requested to provide assistance in the assessment of cognitive and emotional status and provide recommendations and services. Prior to this most recent admission, he was living with the assistance of his and son in their home. The patient has 4 children. He is hard of hearing. He had a mother and brother that both of Alzheimer's disease. 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 A history of alcohol abuse is reported. [address] [address] CONSULTATION Name: LUCRECIA MADRID Room #: 503-P [facility] IN M.R.#: [id number] Admission: 06/08/20 Attend Phys: Amilcar Renteria MD Discharge: 06/19/20 Date of : 37 Report #: [id number] He reports continued alcohol use, although less. TECHNIQUES UTILIZED: Clinical interview, review of medical records, staff consultation and behavioral observation, mini mental status exam 2 standard version, clock drawing. EXAMINATION FINDINGS: The patient was alert and cooperative with the assessment. He reports his symptoms to include difficulty with word finding, decreased appetite and current use of alcohol. He does not report problems with memory or sleep. Initial anxiety is described. He does not report problems with depression. Performance on the MMSE 2 brief version was within normal limits with a raw score of 14/16. Initial registration was 1/3 seconds with hard of hearing. He was 5/5 for orientation to time and place and 3/3 for immediate recall of 3 items after a brief time delay and distraction. Performance on the MMSE 2 standard version suggested a mild degree of impairment with a raw score of 26/30. Subtle difficulty with hand placement for clock noted. It was necessary to utilize modifications on the assessment because of severe hearing deficits. DIAGNOSTIC IMPRESSION: Neurocognitive disorder, extent to be determined, likely in the moderate range, Alcohol use disorder RECOMMENDATIONS: Continued supervision will be necessary for medication, finances and nutrition. Family interview will benefit to clarify the extent of cognitive deficits prior to this most recent admission. Alcohol use should be discouraged. Speech therapy for assistance with cognitive stimulation and compensatory strategies. Thank you very much for allowing me to provide the consultation on this patient. <ELECTRONICALLY SIGNED> By: Bonilla Zhang, PhD 06/21/20 1316 [id number] 15 Bonilla Zhang, PhD /nt
--- NOTE | 2020-06-22 11:44 | HC ---
[facility] [place] [address] CONSULTATION Name: LUCRECIA MADRID Room #: 503-P [facility] IN M.R.#: [id number] Admission: 06/08/20 Attend Phys: Amilcar Renteria MD Discharge: 06/19/20 Date of : 37 Report #: [id number] THIS REPORT FOR: cc: Errol Shipley MD,Bowen Valencia MD, MD ~ DATE OF SERVICE: 06/16/2020 WOUND CARE CONSULTATION PERSONAL PHYSICIAN: Dr. Errol Shipley. CHIEF COMPLAINT: Coccygeal ulcer. HISTORY OF PRESENT ILLNESS: This is an 84-year-old white male who has been a patient of mine in the remote past for previous leg wounds, who was admitted to the hospital approximately 3 weeks ago after a fall resulting in a left femoral neck fracture. The patient underwent left hip hemiarthroplasty, now has been admitted to the rehab unit. Upon admission to the rehab unit, the patient was complaining of pain in his coccygeal region, was noted to have a small decubitus ulcer, for which we have been asked to follow for him. The patient has had these off and on in the past. We have treated with morphine and Silvadene cream at home with resolution. The patient states that he thinks that this has been present even before his hospitalization at this time. The patient has no other associated wounds. PAST MEDICAL HISTORY: Significant for coronary artery disease, sleep apnea, non-insulin dependent diabetes, hypertension, restless legs syndrome, previous back surgeries, pacemaker placement, atrial fibrillation and a recent left hip fracture with hemiarthroplasty and a chronic recurrent coccygeal decubitus ulcer, previous leg ulceration secondary to venous insufficiency. CURRENT MEDICATIONS: Multiple, I reviewed the patient's medication list. DRUG ALLERGIES: INCLUDE GIBRAN INHIBITORS, FENTANYL, AND KETOROLAC. SOCIAL HISTORY: The patient does not smoke or drink alcohol. Lives at home independently with his . FAMILY HISTORY: Not pertinent to current medical condition. REVIEW OF SYSTEMS: CONSTITUTIONAL: The patient denies fevers or chills. NEUROLOGIC: The patient complains of overall generalized weakness, but no isolated weakness in arms or legs. [facility] [address] [place] [address] CONSULTATION Name: LUCRECIA MADRID Room #: 503-P [facility] IN M.R.#: [id number] Admission: 06/08/20 Attend Phys: Amilcar Renteria MD Discharge: 06/19/20 Date of : 37 Report #: [id number] EYES: No complaints. ENT: No complaints. CARDIAC: The patient denies chest pain, palpitations or peripheral edema. RESPIRATORY: The patient denies shortness of breath, cough or wheezes. GASTROINTESTINAL: The patient denies nausea, vomiting or abdominal pain. GENITOURINARY: The patient denies urgency or frequency. MUSCULOSKELETAL: The patient has pain in his left hip. SKIN: There is a decubitus ulcer in the coccygeal region. PHYSICAL EXAMINATION: VITAL SIGNS: Temperature 36.8, pulse 71, respirations 18, BP 134/72. GENERAL: This is an alert and oriented x 3, pleasant, chronically ill-appearing white male who is in no obvious distress. HEENT: Normocephalic, atraumatic. Mucous membranes are dry. Pupils are round. Sclerae white. NECK: Without JVD. LUNGS: Slight diminished breath sounds heard throughout. HEART: Irregularly irregular. ABDOMEN: Soft, nontender. EXTREMITIES: The patient moves all extremities without difficulty. Evaluation of coccygeal region reveals a small, approximately 1 cm x 1 cm stage 3 decubitus ulcer, which is clean and granulating. Periwound is intact. There is no undermining or tunneling. There is minimal serous drainage noted without odor. Bilateral heels are intact. NEUROLOGIC: Cranial nerves 2-12 grossly intact. Motor and sensory grossly intact. LABORATORY DATA: White count 5.0, hemoglobin 8.5. BUN 26, creatinine 1.8. Hemoglobin A1c was 7.5, albumin 2.7. IMPRESSION: 1. Stage 3 coccygeal decubitus ulcer. 2. History of left femoral neck fracture, status post left hemiarthroplasty with generalized debility. 3. History of aspiration/dysphagia. 4. Diabetes mellitus type 2. 5. Coronary artery disease. 6. Hypertension. 7. Moderate protein-calorie malnutrition with albumin of 2.7. PLAN: We will start morphine and Silvadene cream to the stage 3 decubitus ulcer in the coccyx mixed with Z-Guard and Bordered Foam. This was changed twice daily and p.r.n. We will start the patient on low air loss surface, having turned every 2 hours. The patient is currently in an acute rehab for his generalized debility on the recent hip fracture. Physical therapy and [address] [address] CONSULTATION Name: LUCRECIA MADRID Room #: 503-P [facility] IN M.R.#: [id number] Admission: 06/08/20 Attend Phys: Amilcar Renteria MD Discharge: 06/19/20 Date of : 37 Report #: [id number] occupational therapy are working with the patient for strengthening. We will make sure we maximize the patient's oral protein supplementation for healing. We will continue all other current medications. I appreciate ability to consult. We will continue to follow the patient. <ELECTRONICALLY SIGNED> By: Bowen Eisenberg MD 06/22/20 1144 1329 1404 Bowen Eisenberg MD /nt
== END 2020-06-19 15:00 | disposition home health service (06) | DRG 535 ==
PROVIDERS: Internal Medicine; Nurse Practitioner; Nurse Practitioner Adult Health; ADMIT Physical Medicine & Rehabilitation; ATTEND Physical Medicine & Rehabilitation
PROC: 05HA33Z Insertion of Infusion Device into Left Brachial Vein, Percutaneous Approach (ICD-10-PCS; principal; 2020-06-09)
DX: S72.002A Fracture of unspecified part of neck of left femur, initial encounter for closed fracture (principal); L89.153 Pressure ulcer of sacral region, stage 3; J96.01 Acute respiratory failure with hypoxia; N17.0 Acute kidney failure with tubular necrosis; A41.9 Sepsis, unspecified organism; J69.0 Pneumonitis due to inhalation of food and vomit; N39.0 Urinary tract infection, site not specified; E87.0 Hyperosmolality and hypernatremia; D62 Acute posthemorrhagic anemia; E44.0 Moderate protein-calorie malnutrition; G93.40 Encephalopathy, unspecified; K52.1 Toxic gastroenteritis and colitis; I13.0 Hypertensive heart and chronic kidney disease with heart failure and stage 1 through stage 4 chronic kidney disease, or unspecified chronic kidney disease; M19.90 Unspecified osteoarthritis, unspecified site; E11.42 Type 2 diabetes mellitus with diabetic polyneuropathy; E11.22 Type 2 diabetes mellitus with diabetic chronic kidney disease; N18.9 Chronic kidney disease, unspecified; I49.5 Sick sinus syndrome; Z96.642 Presence of left artificial hip joint; I48.91 Unspecified atrial fibrillation; R13.10 Dysphagia, unspecified; I25.10 Atherosclerotic heart disease of native coronary artery without angina pectoris; R41.9 Unspecified symptoms and signs involving cognitive functions and awareness; G25.81 Restless legs syndrome; M10.9 Gout, unspecified; I50.9 Heart failure, unspecified; E55.9 Vitamin D deficiency, unspecified; E53.8 Deficiency of other specified B group vitamins; R21 Rash and other nonspecific skin eruption; D69.6 Thrombocytopenia, unspecified; R53.81 Other malaise; B96.5 Pseudomonas (aeruginosa) (mallei) (pseudomallei) as the cause of diseases classified elsewhere; Z79.82 Long term (current) use of aspirin; Z79.899 Other long term (current) drug therapy; Z95.0 Presence of cardiac pacemaker; Z87.891 Personal history of nicotine dependence; Z88.8 Allergy status to other drugs, medicaments and biological substances; Z68.28 Body mass index [BMI] 28.0-28.9, adult; Z91.018 Allergy to other foods; Z91.010 Allergy to peanuts; Z95.5 Presence of coronary angioplasty implant and graft; Z98.42 Cataract extraction status, left eye; Z98.41 Cataract extraction status, right eye; W18.39XA Other fall on same level, initial encounter; Y93.89 Activity, other specified; Y92.89 Other specified places as the place of occurrence of the external cause; Y99.8 Other external cause status
CPT/HCPCS: 10112

== ENCOUNTER 2020-06-21 11:38 | Inpatient (IN) | payer OTHER ==
[~2020-06-21] VITALS: Ht 182.9 cm; Wt 85.4 kg
[~2020-06-21 11:38] MED LIST changes: +EAR DROPS15 ML OTIC; +TORSEMIDE10 MG PO; +TYLENOL325 MG PO; +VITAMIN D350 MCG PO
[2020-06-21 11:39] VITALS: BP 108/36
[2020-06-21 12:02] LABS: ABSOLUTE NEUTROPHILS 3.6 thou/uL (1.4-8.2); BASOPHILS 0.6 % (0.0-2.0); EOSINOPHILS 0.8 % (0.0-3.0); HEMOGLOBIN 9.2 gm/dL (14.0-18.0); LYMPHOCYTES 15.3 % (24.0-44.0); MCHC 30.7 g/dL (28.0-37.0); MCV 97.8 fL (80.0-100.0); MONOCYTES 5.4 % (1.0-8.0); PLATELET COUNT 108 thou/uL (150-400); POLYS 77.9 % (36.0-66.0); RBC 3.07 mil/uL (4.50-6.00); RDW 18.4 % (10.5-14.5); WBC 4.7 thou/uL (4.0-11.0)
[2020-06-21 13:02] LABS: CALCIUM 8.1 mg/dL (8.5-10.1); CREATININE 2.2 mg/dL (0.7-1.3); POTASSIUM 3.7 mmol/L (3.5-5.1)
[2020-06-21 13:05] LABS: APTT 38.7 Seconds (24.5-32.8); INR 1.2; PROTIME 12.3 Seconds (9.3-11.4)
[2020-06-21 13:47] LABS: BE(vivo) -4.8 mmol/L (-2 to +3); HCO3 20.4 mmol/L (22.0-26.0); PCO2 38.5 mmHg (35.0-45.0); PO2 90.2 mmHg (80.0-100.0); pH 7.343 (7.360-7.450); sO2 96.5 % (92.0-98.0)
[2020-06-21 15:51] VITALS: BP 100/32
[2020-06-21 16:02] LABS: ALBUMIN 2.4 g/dL (3.4-5.0); DIRECT BILIRUBIN 0.6 mg/dL (<0.1-0.2); TOTAL PROTEIN 5.8 g/dL (6.4-8.2)
[2020-06-21 16:30] LABS: ALBUMIN 2.4 g/dL (3.4-5.0); TOTAL PROTEIN 5.8 g/dL (6.4-8.2)
--- NOTE | 2020-06-21 17:58 | NUR ---
CONSULTED TO PLACE A CENTRAL LINE FOR A PATIENT IN ER. CONSENT NOTED. CONFIRMED WITH DR. GRACE THAT THE PATIENT IS NOT A DNR AT THE TIME AND LINE WAS NEEDED. A #6F TRIPLE LUMEN CENTRAL LINE WAS PLACED PER HOSPITAL POLICY. DURING INSERTION THE PATIENT BECAME RESTLESS AND PULLING AT BIPAP AND STERILE FIELD MAKING PLACEMENT DIFFICULT NO STAFF IN THE ER TO ASSIST. STAFF WAS NOTIFIED BIPAP WAS COMING OFF AND ASSISTANCE NEEDED. UNFORTUNATLY THE PATIENT PULLED OFF THE STERILE FIIELD AT THE END OF THE PROCEDURE WELL HIS BIPAP. A STERILE GAUZE WAS APPLIED WELL A STERILE DRESSING. AFTER PROCEDURE WAS COMPLETE THE PRODUCTION LINE WORKER ASSISTED WITH REPLACING THE PATIENTS BIPAP. A STAT CHEST XRAY WAS ORDERED TO CONFIRM PLACEMENT.
--- NOTE | 2020-06-21 19:51 | NUR ---
PATIENT ADMIT TO UNIT AT 1630. ON BIPAP, CONFUSED, AGITATED PULLING LINES. RESTRAINT APPLYED AT 1730. LILIAN NOTIFIED. WILL KEEP MONITOR.
[2020-06-21 20:22] VITALS: BP 122/48
[2020-06-22 00:27] VITALS: BP 128/82
--- NOTE | 2020-06-22 03:43 | NUR ---
PT ALERT X2 . CONFUSED. PULLS OFF TUBES AND CLOTHES. PULLED OUT IV. TAKES OFF HEART MONITOR. NOTIFIED PERFORMANCE ENGINEER. HALDOL GIVEN X1 WITH MODERATE RELIEF OF AGITATION. PT PLACED ON BIPAP SATS ARE WNL WITH BIPAP. WILL CONTINUE TO MONITOR PT FOR CHANGES.
[2020-06-22 04:45] VITALS: BP 143/76
[2020-06-22 05:31] LABS: ABSOLUTE NEUTROPHILS 6.3 thou/uL (1.4-8.2); BASOPHILS 0.5 % (0.0-2.0); HEMOGLOBIN 8.9 gm/dL (14.0-18.0); LYMPHOCYTES 6.2 % (24.0-44.0); MCH 29.9 pg (26.0-34.0); MCHC 31.6 g/dL (28.0-37.0); MCV 94.9 fL (80.0-100.0); MONOCYTES 2.7 % (1.0-8.0); PLATELET COUNT 108 thou/uL (150-400); POLYS 90.6 % (36.0-66.0); RBC 2.96 mil/uL (4.50-6.00); RDW 17.7 % (10.5-14.5); WBC 6.9 thou/uL (4.0-11.0)
[2020-06-22 05:53] LABS: ALBUMIN 2.2 g/dL (3.4-5.0); CALCIUM 7.7 mg/dL (8.5-10.1); DIRECT BILIRUBIN 0.5 mg/dL (<0.1-0.2); PHOSPHORUS 4.2 mg/dL (2.5-4.9); POTASSIUM 3.8 mmol/L (3.5-5.1); TOTAL BILIRUBIN 0.8 mg/dL (0.2-1.0); TOTAL PROTEIN 5.6 g/dL (6.4-8.2); TROPONIN-I 0.3 ng/mL (<0.06)
--- NOTE | 2020-06-22 07:28 | EKG ---
[place] [address] [facility] [place] [address] ELECTROCARDIOGRAM REPORT Name: LUCRECIA MADRID Room #: 352-P ADM IN M.R.#: [id number] Admission: 06/21/20 Attend Phys: Joe Velazquez MD Discharge: Date of : 37 Report #: [id number] [facility] ED Test Date: 2020-06-21 Test Time: 12:00:45 Pat Name: LUCRECIA MADRID Department: Room: [facility] Gender: M Grievance Manager: KALEB : 1935 Requested By: Micah Anderson Order Number: [id number] MD: Garret Sanchez Measurements Intervals Floris Rate: 70 P: 228 [place]: 185 QRS: 268 QRSD: 160 T: 83 QT: 563 QTc: 608 Interpretive Statements Ventricular-paced complexes No further rhythm analysis attempted due to paced rhythm Compared to ECG 05/24/2020 08:36:01 Ventricular pacing is now present Electronically Signed On 06-22-2020 7:28:16 SPRAY GUN STRIPER by Garret Sanchez [email or web address] <ELECTRONICALLY SIGNED> By: Garret Sanchez MD, [facility] 06/22/2028 1200 1200 Garret Sanchez MD, FAC /EPI
[2020-06-22 07:53] VITALS: BP 132/84
[2020-06-22 11:23] VITALS: BP 173/85
[2020-06-22 14:51] VITALS: BP 152/69; BP 153/80
--- NOTE | 2020-06-22 14:59 | NUR ---
FROM [facility] INITIAL ASSESSMENT: NANCY reviewed chart and spoke with nursing. Pt was admitted due to COVID-19. Pt placed in Enhanced Isolation. Pt was recently on 5N for inpt acute rehab. Pt discharged home on Monday, Jun.19 with [facility]. Pt is currently in restraints. Pt has required bipap support and is currently NPO. Pt to have convalescent plasma today. NANCY left voice message for pts , Miri ([phone]). NANCY is following to assist as needed with discharge planning. KULDEEP Friedman
--- NOTE | 2020-06-22 16:21 | HC ---
[facility] [place] [address] CONSULTATION Name: LUCRECIA MADRID Room #: 352-P ADM IN M.R.#: [id number] Admission: 06/21/20 Attend Phys: Joe Velazquez MD Discharge: Date of : 37 Report #: [id number] THIS REPORT FOR: cc: Errol Shipley MD, John M. MD Geha,Xander Brady MD ~ DATE OF SERVICE: 06/21/2020 INFECTIOUS DISEASE CONSULTATION REASON FOR CONSULTATION: I was asked to evaluate concerning COVID-19 pneumonia. HISTORY OF PRESENT ILLNESS: The patient is an 84-year-old recently discharged from the rehabilitation unit after he was rehabbing from the left hip hemiarthroplasty. Once at home, he developed shortness of breath and confusion over the last several days. He presents to the Emergency Room hypoxic, hypotensive and encephalopathic. He was given IV fluids. Now on BiPAP. He has had no chest pain or palpitations reported. He has had no dysrhythmia noted. No nausea, vomiting or diarrhea. No drainage from his left hip incision. He does have underlying diabetes, atrial fibrillation and chronic kidney disease. REVIEW OF SYSTEMS: A 14-point review of systems was negative other than what has been described above. The patient was unable to give any further details. ALLERGIES: KETOROLAC, GIBRAN INHIBITORS, FENTANYL AND PEANUTS. MEDICATIONS: As noted on his MAR including Requip, Cymbalta, Bentyl, aspirin, omeprazole, and Hydromorphone. PAST MEDICAL HISTORY: Pyloric stenosis, tonsillectomy, laminectomy, coronary artery disease with stents, obstructive sleep apnea, synovial cyst injection, diabetes, hypertension, umbilical herniorrhaphy, deviated septum repair, appendectomy, restless leg syndrome, right shoulder rotator cuff repair, bilateral cataract surgeries, implantable abdominal pain pump, carpal tunnel surgery, permanent pacemaker, L3-L4 laminectomy, reverse total shoulder arthroplasty on the right, colonoscopy, gout, congestive heart failure, atrial fibrillation, and bradycardia. FAMILY HISTORY: No reported tuberculosis. SOCIAL HISTORY: Nonsmoker, no significant alcohol intake. PHYSICAL EXAMINATION: VITAL SIGNS: He was afebrile and hemodynamically stable. He was on BiPAP and was encephalopathic. [facility] [address] [place] [address] CONSULTATION Name: LUCRECIA MADRID Room #: 352-P [facility] IN M.R.#: [id number] Admission: 06/21/20 Attend Phys: Joe Velazquez MD Discharge: Date of : 37 Report #: [id number] GENERAL: He was awake, but he was not speaking much. SKIN: Without rash or decubitus. No palpable adenopathy. HEENT: Eyes without scleral icterus or conjunctivitis. NECK: Supple. LUNGS: Coarse breath sounds bilaterally. HEART: Regular, without murmur, gallop or rub. ABDOMEN: Soft and nontender with no hepatosplenomegaly or mass. EXTREMITIES: Left hip incision. 1+ edema. LABORATORY STUDIES: Reviewed. Chest x-ray reviewed. IMPRESSION: 1. COVID-19 pneumonia with respiratory failure and SARS. 2. Encephalopathy. 3. Diabetes. 4. Chronic kidney disease. 5. Congestive heart failure. 6. Status post left hip hemiarthroplasty. RECOMMENDATIONS: We will continue corticosteroids, antiviral therapy and convalescent plasma. He will also be on broad antibiotic coverage, pending initial bacterial culture results. Continue full respiratory support on COVID isolation unit. We have pulmonary critical care evaluation as well. [place] is guarded for the patient has had significant comorbidities. <ELECTRONICALLY SIGNED> By: Xander Dixon MD 06/22/20 1621 191 192 Xander Dixon MD /nt
[2020-06-22 19:21] VITALS: BP 168/75
[2020-06-23 04:44] VITALS: BP 133/90
[2020-06-23 06:10] LABS: HEMATOCRIT 30.2 % (42.0-52.0); MCH 29.6 pg (26.0-34.0); MCHC 29.9 g/dL (28.0-37.0); MCV 98.7 fL (80.0-100.0); RBC 3.06 mil/uL (4.50-6.00); RDW 18.6 % (10.5-14.5); WBC 12.8 thou/uL (4.0-11.0)
[2020-06-23 06:47] LABS: ALBUMIN 2.4 g/dL (3.4-5.0); CREATININE 2.7 mg/dL (0.7-1.3); DIRECT BILIRUBIN 0.8 mg/dL (<0.1-0.2); MAGNESIUM 2.1 mg/dL (1.8-2.4); PHOSPHORUS 7.1 mg/dL (2.5-4.9); POTASSIUM 4.3 mmol/L (3.5-5.1); TOTAL BILIRUBIN 1.1 mg/dL (0.2-1.0); TOTAL PROTEIN 5.8 g/dL (6.4-8.2)
--- NOTE | 2020-06-23 07:56 | NUR ---
ASSUMED CARE OF PT AT 1900HRS. PT ALERT BUT ONLY ORIENTED TO PERSON. FALL PRECAUTION IN PLACE. PT TURNED Q2-3H. PT IS ON SOFT RESTRAINTS AND NEEDS MUST BE ANTICIPATED. HENLEY IN PLACE AND PATIENT. ASSESSMENT CHARTED. PT DESAT ON 8L NC AND WAS PUT ON BIPAP. PT SLEPT PART OF THE SHIFT. REPORT GIVEN TO ONCOMING RN.
[2020-06-23 08:41] VITALS: BP 180/72
[2020-06-23 09:52] LABS: HEMATOCRIT 32.8 % (42.0-52.0); HEMOGLOBIN 9.6 gm/dL (14.0-18.0); MCH 29.2 pg (26.0-34.0); MCHC 29.2 g/dL (28.0-37.0); MCV 100.1 fL (80.0-100.0); RBC 3.28 mil/uL (4.50-6.00); RDW 18.6 % (10.5-14.5); WBC 18.9 thou/uL (4.0-11.0)
--- NOTE | 2020-06-23 10:12 | HC ---
[facility] [place] [address] CONSULTATION Name: LUCRECIA MADRID Room #: 352-P ADM IN M.R.#: [id number] Admission: 06/21/20 Attend Phys: Joe Velazquez MD Discharge: Date of : 37 Report #: [id number] THIS REPORT FOR: cc: Errol Shipley MD, John M. MD Althoff, Jeffrey R. MD ~ DATE OF SERVICE: 06/22/2020 CHIEF COMPLAINT: Sacral pressure ulceration. HISTORY OF PRESENT ILLNESS: This is an 84-year-old white male patient with whom we are familiar from very recent hospitalization. The patient was recently on the rehab unit at [facility] approximately a week ago. He went home and this was due to a hip fracture with a left hip hemiarthroplasty. He, however, developed shortness of breath while he was at home and decreasing mentation. He was brought into the Emergency Department, and was found to be encephalopathic and was noted to have a positive COVID-19 test and is admitted for further respiratory care. I have been asked to see him with regard to ongoing care of his sacral pressure ulceration. PAST MEDICAL HISTORY: Positive for history of pyloric stenosis as an . He has a history of coronary artery disease with stent placements, history of sleep apnea, diabetes type 2, hypertension, previous appendectomy. He has a pain pump, previous L3-L4 laminectomy, history of atrial fibrillation. SOCIAL HISTORY: Negative for alcohol or tobacco use. MEDICATIONS: Include Requip, Cymbalta, Bentyl, aspirin, omeprazole, Dilaudid, ergocalciferol, gabapentin, ferrous sulfate, Xalatan, nystatin powder, torsemide, carbamide, cholecalciferol. ALLERGIES: KETOROLAC, GIBRAN INHIBITORS, FENTANYL, NUTS. REVIEW OF SYSTEMS: Somewhat limited. CONSTITUTIONAL: The patient denies fever, chills or weight loss. NEUROLOGICAL: The patient denies focal weakness. ENT: The patient denies earache, nasal drainage or sore throat. CARDIOVASCULAR: The patient denies chest pain or palpitations. PULMONARY: The patient does complain of shortness of breath with occasional cough. GASTROINTESTINAL: The patient denies nausea, vomiting, diarrhea or abdominal pain. ORTHOPEDIC: The patient complains of some pain in his left hip area. Other systems in a 14-point review of systems are negative or unobtainable and all pertinents are covered in the history of present illness. [facility] [address] [place] [address] CONSULTATION Name: LUCRECIA MADRID Room #: 352-P [facility] IN .R.#: [id number] Admission: 06/21/20 Attend Phys: Joe Velazquez MD Discharge: Date of : 37 Report #: [id number] PHYSICAL EXAMINATION: VITAL SIGNS: At this time include temperature 36.4, pulse 73, respiratory rate 18, blood pressure ____/85. GENERAL: This is a chronically ill-appearing male patient who appears to be in minimal distress. HEENT: Head normocephalic. Nose and throat clear. NECK: Supple. HEART: Irregular. ABDOMEN: Soft. EXTREMITIES: Examination of the sacral region demonstrates a small stage 3 sacral pressure ulceration with a mix of granulation and fibrin. It remains relatively superficial, is mostly unchanged since his prior hospitalization last week. NEUROLOGIC: The patient is awake. He does move all 4 extremities spontaneously. LABORATORY DATA: Include sodium 146, potassium 3.8, chloride 110, CO2 of 21, BUN 41, creatinine 2.0, glucose of 218, calcium is 7.7, total bilirubin 0.8. Albumin is low at 2.2. White blood cell count 6.9 with hemoglobin of 8.9. CLINICAL IMPRESSION: 1. Stage 3 sacral pressure ulceration. 2. Recent left femoral neck fracture, status post left hip hemiarthroplasty 05/25/2020. 3. COVID-19 infection. 4. Acute kidney injury. 5. Type 2 diabetes mellitus. 6. Hypertension. 7. History of atrial fibrillation and coronary artery disease. RECOMMENDATIONS: At this point in time, we will continue with Silvadene, morphine cream mixed with Z-guard covered with a border foam b.i.d. to the sacral ulcer. He will not allow other dressings or wound packing. He will need low air loss mattress, every 2-hour turning and positioning, aggressive nutritional support. We will continue with ongoing medical management of his other underlying issues as detailed above. I appreciate being asked to see him in consultation. <ELECTRONICALLY SIGNED> By: John Maldonado MD 06/23/20 1012 1747 51 John Maldonado MD /nt
[2020-06-23 10:14] LABS: INR 1.6; PROTIME 16.1 Seconds (9.3-11.4)
--- NOTE | 2020-06-23 12:00 | NUR ---
PT STARTED SHIFT ON BIPAP AND WAS NONRESPONSIVE...HE BEGAN TO DESAT IN 70'S @ 1000 AND RT INCREASED BIPAP TO 100%...HE STILL HAD SATS IN 80'S...DR GRACE SPOKE WITH PT SON DR MADRID AND HE DECIDED TO MAKE PATIENT COMFORT CARES...DR GRACE ORDERED MORPHINE GTT WITH MORPHINE IVP PRN AIR HUNGER. WILL TRANSITION TO 2L NC AFTER GTT INITIATED..
--- NOTE | 2020-06-23 14:08 | NUR ---
NANCY reviewed chart and spoke with nursign and attending physician. Pt remains in Enhanced Isolation due to COVID. Pt is afebrile and requiring bipap support. Pt is on IV abx and IV steroids. Pt has started Ivermectin and Remdesivir. NANCY updated Ariadne at [facility]. NANCY is following to assist as needed with discharge planning.
--- NOTE | 2020-06-23 19:00 | NUR ---
PT REMAINS ON MS GTT WITH IVP MS FOR AIR HUNGER...PATIENT APPEARS COMFORTABLE AND HAS STARTED HAVING OSITO CHAVES @ 1500...WILL KEEP COMFORTABLE..
--- NOTE | 2020-06-23 23:16 | NUR ---
PT AT 2153. MYSELF AND SARIAH LA WERE UNABLE TO NOTE ANY HEART TONES OR SIGNS OF RESPIRATIONS. SON, PETRA GAVE INFORMATION REGARDING HOME. SEARCHED ROOM PER SON'S REQUEST FOR PT CELLPHONE, BUT NONE WAS FOUND. BAG OF CLOTHING SENT HOME WITH SON WHO STATED THE PATIENTS PHONE WAS NOT IN THAT BAG EITHER.
== END 2020-06-23 21:54 | DRG 177 ==
LOC: ER 11:38 → EROBS 15:03 → 3W 15:03
PROVIDERS: Nurse Practitioner; Pediatrics; Specialist; ADMIT Internal Medicine; ATTEND Internal Medicine
PROC: 02HV33Z Insertion of Infusion Device into Superior Vena Cava, Percutaneous Approach (ICD-10-PCS; principal; 2020-06-21)
PROC: 5A09357 Assistance with Respiratory Ventilation, Less than 24 Consecutive Hours, Continuous Positive Airway Pressure (ICD-10-PCS; principal; 2020-06-21)
PROC: XW033E5 Introduction of Remdesivir Anti-infective into Peripheral Vein, Percutaneous Approach, New Technology Group 5 (ICD-10-PCS; principal; 2020-06-21)
PROC: 5A0935A Assistance with Respiratory Ventilation, Less than 24 Consecutive Hours, High Flow/Velocity Cannula (ICD-10-PCS; 2020-06-22)
PROC: 5A09357 Assistance with Respiratory Ventilation, Less than 24 Consecutive Hours, Continuous Positive Airway Pressure (ICD-10-PCS; 2020-06-22)
PROC: XW13325 Transfusion of Convalescent Plasma (Nonautologous) into Peripheral Vein, Percutaneous Approach, New Technology Group 5 (ICD-10-PCS; 2020-06-22)
PROC: 5A09357 Assistance with Respiratory Ventilation, Less than 24 Consecutive Hours, Continuous Positive Airway Pressure (ICD-10-PCS; 2020-06-23)
DX: U07.1 COVID-19 (principal); L89.153 Pressure ulcer of sacral region, stage 3; J96.01 Acute respiratory failure with hypoxia; J12.82 Pneumonia due to coronavirus disease 2019; N17.9 Acute kidney failure, unspecified; I48.21 Permanent atrial fibrillation; G93.40 Encephalopathy, unspecified; I13.0 Hypertensive heart and chronic kidney disease with heart failure and stage 1 through stage 4 chronic kidney disease, or unspecified chronic kidney disease; D62 Acute posthemorrhagic anemia; E44.0 Moderate protein-calorie malnutrition; N39.0 Urinary tract infection, site not specified; R77.8 Other specified abnormalities of plasma proteins; I50.9 Heart failure, unspecified; I25.10 Atherosclerotic heart disease of native coronary artery without angina pectoris; G25.81 Restless legs syndrome; I48.91 Unspecified atrial fibrillation; G47.33 Obstructive sleep apnea (adult) (pediatric); M10.9 Gout, unspecified; E11.22 Type 2 diabetes mellitus with diabetic chronic kidney disease; N18.30 Chronic kidney disease, stage 3 unspecified; E11.649 Type 2 diabetes mellitus with hypoglycemia without coma; D69.6 Thrombocytopenia, unspecified; I49.5 Sick sinus syndrome; Z68.25 Body mass index [BMI] 25.0-25.9, adult; Z90.49 Acquired absence of other specified parts of digestive tract; Z95.5 Presence of coronary angioplasty implant and graft; Z98.42 Cataract extraction status, left eye; Z98.41 Cataract extraction status, right eye; Z79.82 Long term (current) use of aspirin; Z79.899 Other long term (current) drug therapy; Z88.8 Allergy status to other drugs, medicaments and biological substances; Z91.018 Allergy to other foods
CPT/HCPCS: 10879